=== PATIENT | male | born 1965 | race Caucasian/White ===

== ENCOUNTER 2023-09-16 07:27 | Inpatient (IN) | payer BC, SELFPAY ==
[2023-09-16 08:00] VITALS: BP 97/52
--- NOTE | 2023-09-16 08:05 | HPS.HSE ---
Addendum entered and electronically signed by Riley Ramirez MD 09/16/23 17:06:
I saw and examined the patient.
The PA's note was reviewed and I agree with the note.
Comment:
Patient was sedated on fentanyl gtt and versed gtt. Legs look perfused. Echo reviewed, would say EF visually 40%. Tolerating weaning of IABP. Plan to wake, diurese, and extubate him then likely remove IABP tomorrow. Targets reviewed with IC. LAD is
not a great target. His code sounds respiratory in nature. Will re-assess him once he's normalized and discuss plan of care.
Thank you for involving me in the care of this patient. Please feel free to contact me with any questions or concerns.
Riley Ramirez MD, MS
Cardiothoracic Surgeon
[facility]
This dictation was created using the [employer] dictation system. Please excuse any grammatical, typographical, or 'sound alike' errors.
Addendum entered and electronically signed by CELSO Barber 09/16/23 10:39:
Original Note:
Family Physician
-
Family Physician: Dr Bray
DOES NOT FOLLOW A FERRYBOAT HELPER
Chief Complaint
-
Cardiogenic shock
History of Present Illness
58-year-old male with past medical history significant for diabetes presented to [facility] emergency room on September 16, 2023 for acute shortness of breath. Per report, patient woke up around 3 AM and complained of extreme shortness of
breath. [facility] triage patient became delirious, collapsed, and was pulseless. CPR was started and patient was intubated and he received epi x 2 and bicarb x 1.. After intubation ET tube was observed to have pink frothy sputum.
Patient remained asystolic for the first 2 rounds of pulse checks and had a brief ROSC and an idioventricular rhythm then went asystolic again. After a repeat dose of epinephrine ROSC was achieved and patient remained in sinus tachycardia. Post
ROSC EKG was suggestive of an anterior PR and patient was taken to the cardiac [facility]. While in the cardiac [facility] patient was observed to have multivessel disease and a intra-aortic balloon pump was placed. Transfer was initiated to
[facility]. Patient arrived to [place] this morning for further surgical evaluation and cardiogenic shock stabilization.
Medical History
Past Medical History
Past Medical History: Reports NIDDM and PR
Additional Past Medical History:
Morbid obesity
Flash pulmonary edema
DKA
Diabetes
Cataracts
Past Surgical History: Reports Other (unknown 2/2 mental status)
Additional Past Surgical History:
Unable to obtain
Social History
Unable to obtain full social history at this time due to: Patient Intubation
Personal:
Living: With Family
Family History
Family History: Adopted
Allergies / Home Medications
Allergies reflects when Allergies were last updated in [facility].
Home Medications with original date entered in [facility]
Allergy/Medication List:
NKDA
If medication reconciliation has not been performed, why?: Unresponsive
Review of Systems
-
Unable to obtain full review of systems at this time due to: Patient Intubation
Physical Exam
Vital Signs
Active Medications
Acetaminophen (Acetaminophen 325 Mg Tablet) 650 mg TUBE Q4HPRN PRN
PRN Reason: mild pain/BRONSON/temp> 100.4F
Stop: 10/14/23 06:58
Al Hydrox/Mg Hydrox/Simethicone (Mag/Al/Simethicone Suspension 30 Ml Cup) 30 ml TUBE Q6HPRN PRN
PRN Reason: Heartburn
Stop: 10/14/23 06:58
Albuterol/Ipratropium (Ipratropium 0.5/Albuterol 3 Mg (3 Ml Ampul)) 3 ml INH R Q4HPRN PRN; Protocol
PRN Reason: shortness of breath
Dextrose (Dextrose 50% (0.5 Grams/Ml) 50 Ml Syringe) 12.5 grams IV [id number] PRN
PRN Reason: BLOOD GLUCOSE < 70
Stop: 10/14/23 08:22
Docusate Sodium (Docusate Sodium Liquid (100 Mg/10 Ml) Cup) 100 mg TUBE BID SHAVON
Stop: 10/14/23 08:59
Fentanyl Citrate (Fentanyl (50 Mcg/Ml) 100 Mcg/2 Ml Ampul) 50 mcg IV [id number] PRN; Protocol
PRN Reason: see protocol
Stop: 09/30/23 08:24
Hydromorphone HCl (Hydromorphone 0.5 Mg/0.5 Ml Syringe) 0.5 mg IV Q4HPRN PRN
PRN Reason: severe pain
Stop: 09/30/23 06:58
Last Admin: 09/16/23 08:30 Dose: 0.5 mg
Norepinephrine Bitartrate (Levophed) 4 mg in 250 mls @ 0 mls/hr IV PER PROTOCOL SHAVON; Protocol
Insulin Human Regular (Novolin R Insulin Infusion) 100 units in 100 mls @ 0 mls/hr IV PER PROTOCOL SHAVON; Protocol
Last Admin: 09/16/23 09:02 Dose: 100 mls
Fentanyl Citrate (Sublimaze) 1,000 mcg in 100 mls @ 0 mls/hr IV PER PROTOCOL SHAVON; Protocol
Last Admin: 09/16/23 09:00 Dose: 100 mls
Magnesium Sulfate (Magnesium Sulfate) 2 gram in 50 mls @ 25 mls/hr IV NOW STA
Stop: 09/16/23 11:11
Midazolam HCl (Versed) 25 mg in 50 mls @ 0 mls/hr IV PER PROTOCOL SHAVON; Protocol
Insulin Aspart (Insulin Aspart (100 Units/Ml) 3 Ml Flexpen) 0 units SC AC SHAVON; Protocol
Stop: 10/14/23 11:29
Magnesium Hydroxide (Milk Of Magnesia 30 Ml Cup) 15 ml TUBE HSPRN PRN
PRN Reason: constipation
Stop: 10/14/23 06:58
Midazolam HCl (Midazolam (Preservative Free) 1 Mg/Ml 2 Ml Vial) 2 mg IV [id number] PRN; Protocol
PRN Reason: see protocol
Stop: 10/14/23 09:18
Ondansetron HCl (Ondansetron 4 Mg/2 Ml Vial) 4 mg IV Q6HPRN PRN
PRN Reason: nausea and vomiting
Stop: 10/14/23 06:58
Pantoprazole Sodium (Pantoprazole Sodium 40 Mg/10 Ml Vial) 40 mg IV BID SHAVON
Stop: 10/14/23 09:59
Polyethylene Glycol (Polyethylene Glycol Powder 17 Grams Packet) 17 grams TUBE DAILY SHAVON
Stop: 10/15/23 07:59
Sennosides (Sennosides (Senokot) 8.6 Mg Tablet) 8.6 mg TUBE BID SHAVON
Stop: 10/14/23 07:59
Sodium Chloride (Sodium Chloride 0.9% (Flush) Syringe) 0 flush IV PER PROTOCOL SHAVON
Stop: 10/14/23 08:59
Sodium Chloride (Sodium Chloride 0.9% (Preservative Free) 10 Ml Vial) 10 ml IV BID SHAVON
Stop: 10/14/23 09:59
Vital Signs
Temp Pulse Resp BP Pulse Ox
96.7 F L 83 12 85/42 96
09/16/23 08:53 09/16/23 09:05 09/16/23 08:53 09/16/23 09:05 09/16/23 08:53
I&O
09/14/23 09/15/23 09/16/23 09/17/23
06:59 06:59 06:59 06:59
Intake Total 148.2 / 148.2
Output Total 190 / 190
Balance -41.8 / -41.8
Physical Exam
General: Intubated
HEENT: NormoCephalic, Nose Appears Normal and Ears Appear Normal
Respiratory: Rales and Crackles
Cardiac: S1/S2
Breast: Deferred by me
GI: Normal Bowel Sounds and Distended
Rectal: Deferred by Provider
Genito-urinary: Other (baca in place)
Musculoskeletal: No Edema
Skin: Warm
Neuro: AO x 3
Hematologic/Lymphatic: No Lymphadenopathy
Psych: Other (sedation)
Laboratory Results
-
Lab Results
09/16/23 07:46
PT 15.5 Sec (11.4-14.6) H 09/16/23 07:46
INR 1.25 09/16/23 07:46
APTT 30.1 Sec (23.4-35.0) 09/16/23 07:46
Magnesium 1.5 mg/dl (1.6-2.3) L 09/16/23 07:46
Triglycerides 933 mg/dl (10-149) H 09/16/23 07:46
LDL Cholesterol, Calc -29 mg/dl 09/16/23 07:46
VLDL Cholesterol, Calc 186 mg/dl (0-30) H 09/16/23 07:46
HDL Cholesterol 28 mg/dl 09/16/23 07:46
09/16/23
07:46
Mdh-W-Kaordeudmmx Pept 2540
PT 15.5 Sec (11.4-14.6) H 09/16/23 07:46
INR 1.25 09/16/23 07:46
APTT 30.1 Sec (23.4-35.0) 09/16/23 07:46
Data Reviewed
-
Critical Care Time (in minutes): 55
Diagnostic Radiology: Image Personally Visualized and interpreted
Medical Tests (Nuc Med, Echo, EKG etc): Image Personally Visualized and interpreted
Lab Data: Labs Reviewed by me and Discussed with Nurse
Old Records: Requested
Impression/Plan
-
IMPRESSION:
58-year-old male with past medical history listed above was transferred from [facility] with cardiogenic shock for surgical evaluation and shock management.
PLAN:
#CAD
-Patient's case will be discussed with attending physician. Further details regarding surgical timing intervention will be determined after attending physicians full evaluation.
-Routine preoperative cardiothoracic surgery orders will be initiated once deemed a surgical candidate
-STS risk stratification score will be calculated after preoperative testing is complete
-will start heparin gtt once TR band is off
-Check EKG
-Lipid panel pending
-Cardiology consulted
#Cardiogenic shock
-Continue intra-aortic balloon pump support
-Continue Bybee-Arthur catheter and monitor cardiac index every 4 hours
-Check echocardiogram
-BNP pending
-Continue Levophed; titrate for MAP greater than 65
#Pulmonary edema
#Ventilator dependent respiratory failure
-Stat chest x-ray to assess ET tube placement and balloon pump placement
-40 mg of IV Lasix stat
-Continue vent support and wean FiO2 as able for sats greater than 90%
-Check pplat
-Continue sedation for RASS score of -3 to -5
>>>Check triglycerides, may need to transition from propofol to fentanyl Versed
>>daily sedation vacations
-Information Security Analyst consulted
#Acute kidney injury
- Will check BMP
-Trend creatinine
-Will hold off on fluid resuscitation due to pulmonary edema
-Strict I's and O's
-Low threshold to consult nephrology
#Hyperkalemia
-Start hyperkalemia cocktail
-Repeat BMP and ABG pending
#Leukocytosis
-Continue to monitor trend
-Monitor for fever
-Low threshold to start antibiotics
#DKA
-Start insulin drip
-Check beta hydroxy
-Stat UA to assess for ketones
-BMP every 4 hours
-Check hemoglobin A1c
-Consult diabetes management
#Shock liver
#Multiorgan dysfunction
-Monitor CMP's daily
Carla HOUSTON
Cardiac Surgery
[2023-09-16 08:06] LABS: APTT 30.1 Sec (23.4-35.0); INR 1.25; PT 15.5 Sec (11.4-14.6)
[2023-09-16 08:08] LABS: Hematocrit 42.3 % (39.0-52.0); Hemoglobin 14.2 g/dL (13.0-18.0); Mean Corp Hgb Conc. 33.6 g/dL (33.0-37.0); Mean Corpuscular Volume 83.4 fL (80.0-94.0); Mean Platelet Volume 9.9 fL (7.4-10.4); Platelet Count 157 10^3/uL (130-400); Red Blood Cell Count 5.07 10^6/uL (4.70-6.10); Red Cell Dist. Width 13.8 % (11.5-14.5); White Blood Cell Count 23.7 10^3/uL (4.8-10.8)
[2023-09-16 08:13] LABS: Glucose - Point of Care 555 mg/dl (70-99)
--- NOTE | 2023-09-16 08:14 | CON.CAR ---
Addendum entered and electronically signed by Titi Carmona DO 09/16/23 11:25:
I saw and examined the patient.
The Delivery Assistant's note was reviewed and I agree with the note.
Comment:
Impression:
Presented to [facility] with SOB 09/16/23 early AM
Acute hypoxic respiratory failure
intubated at [facility] 09/16/23In-hospital cardiac arrest at [facility] 09/16/23
collapsed in triage at [facility], cardiac arrest ROSC after CPR, Epi and bicarb
Cardiogenic shock s/p IABP 09/16/23
Anterior STEMI and CAD by cath at [facility] 09/16/23
initial Troponin at was 2.7 09/16/23ypokalemia at [facility] then hyperkalemia at
Hyperglycemia with h/o DM 2
Hyperlipidemia
SEGUNDO
Past smoker
Plan:
Requested records including cath report.
Pt being evaluated for CABG.
Trend troponin until peak
IV levophed for bp support. Wean as able. Beta blockers not initiated in setting of hypotension requiring IV pressor therapy
Cont pulm toilet for VDRF
IABP 1:1 for LV support
Check echo to eval EF
Replete Mg. Monitor lytes, potassium elevated and had been low.
Monitor cr, rising and currently at 1.6.
Remains sinus rhythm, cont tele
HPI: -Patient came to as a transfer from [facility] in the setting of cardiac arrest and CAD, cardiology has been consulted. Patient walked into [facility] ER around 0400 this AM complaining of SOB. His drive him to the hospital. He was able to tell the
respiratory assistant that he was SOB and then collapsed. He was pulseless. Patient was intubated in [facility] ER. He had chest compressions, Epi x1 and bicarb x1, asystole on tele followed by sinus tachycardia. ECG post-ROSC with anterior ST elevation prompting
STEMI alert. Patient had cath at [facility] and there was evidence of CAD and cardiogenic shock. IABP was placed and patient was sent to .
Original Note:
Consultation
Consultation Request
Date/Time Consultation Requested: 09/16/23
Date/Time Consultation Performed: 09/16/23
Requesting Provider: Dr. Ramirez
Performing Provider: Dr. Carmona
Reason for Consultation: Transfer for in-hospital cardiac arrest at an outside hospital
Medical History
-
History of Present Illness:
Patient came to as a transfer from [facility] in the setting of cardiac arrest and CAD, cardiology has been consulted. Patient walked into [facility] ER around 0400 this AM complaining of SOB. His drive him to the hospital. He was able to tell the triage
RN that he was SOB and then collapsed. He was pulseless. Patient was intubated in [facility] ER. He had chest compressions, Epi x1 and bicarb x1, asystole on tele followed by sinus tachycardia. ECG post-ROSC with anterior ST elevation prompting STEMI
alert. Patient was cath'd by covering bracelet and brooch maker at [facility] and there was evidence of CAD and cardiogenic shock. IABP was placed and patient was sent to . Called his PCP to get records and await their arrival.
PMH:
DM 2
Hyperlipidemia
Past Medical History
Past Medical History: Other (in HPI)
Past Surgical History: Cardiac (cardiac cath at [facility] 09/16/23)
Social History
Tobacco: Non-Smoker
Alcohol: None
Drug: None
Personal:
Living: With Family
Family History
Family History: Unable to Obtain
Allergies / Home Medications
Allergy/AdvReac Type Severity Reaction Status Date / Time
No Known Allergies Allergy Unverified 09/16/23 08:03
Review of Systems
-
History Source: Transfer Record
All other systems: Negative unless noted
Physical Exam
Vital Signs
90/46, HR 83, pulse ox 97% vent
GEN: Intubated and sedated on the vent
HEENT: MMM
LUNGS: Intubated and on the ventilator. Coarse BS anterolaterally without wheeze
CV: Reg, no murmur
ABD: soft, BS+, NT, ND
EXT: Chronic brawny skin changes. No clubbing, cyanosis, lesions or edema B/L
NEURO: Sedated
SKIN: Warm, dry and pink. No rash
Lab Results
09/16/23 07:46
Labs from [facility] 09/16/23:
Hgb 15.9, WBC 1539, Plt 151
Sodium 145, potassium 3.1, BUN 23, Cre 1.27, magnesium 1.8
Impression / Plan
-
PCP: Dr. Espinoza Bray
Cardiology: None prior to admission, seen by Dr. Ankush hernandez and Dr. Patino at [facility] prior to transfer
Impression:
Presented to [facility] with SOB 09/16/23 early AM
Acute hypoxic respiratory failure
intubated at [facility] 09/16/23
In-hospital cardiac arrest at [facility] 09/16/23
collapsed in triage at [facility], ROSC after CPR, Epi and bicarb
Cardiogenic shock s/p IABP 09/16/23
Anterior STEMI and CAD by cath at [facility] 09/16/23
initial Troponin at was 2.7 09/16/23
Hypokalemia at [facility] then hyperkalemia at
Hyperglycemia with h/o DM 2
Hyperlipidemia
SEGUNDO
Plan:
-Patient came to as a transfer from [facility] in the setting of cardiac arrest and CAD, cardiology has been consulted. Patient walked into [facility] ER around 0400 this AM complaining of SOB. His drive him to the hospital. He was able to tell the triage
RN that he was SOB and then collapsed. He was pulseless. Patient was intubated in [facility] ER. He had chest compressions, Epi x1 and bicarb x1, asystole on tele followed by sinus tachycardia. ECG post-ROSC with anterior ST elevation prompting STEMI
alert. Patient was cath'd by covering bracelet and brooch maker at [facility] and there was evidence of CAD and cardiogenic shock. IABP was placed and patient was sent to . Called his PCP to get records and await their arrival.
-Remains in SR without acute ischemic changes by ECG reviewed by me
-IABP running at 1:1
-Cath films being reviewed by interventional cardiology. No known h/o CAD and no known h/o cardiac testing. Called PCP and requested adrian available records and await their arrival.
-Initial Troponin 2.7, will trend
-Levophed running at 8
-Potassium was 3.1 at [facility] this AM with magnesium of 1.8. Repeat labs at show potassium is up to 6.2. Not clear if he was supplemented at [facility].
-Now also appears to be markedly hyperglycemic and concern for DKA. HgbA1c 9.2%.
-SEGUNDO with Cre up to 1.6 at . Cre was 1.27 at [facility] earlier today
-Lactic acid 3.2
-No echo report available from [facility]
[2023-09-16 08:16] VITALS: BP_SYST 97
[2023-09-16 08:27] LABS: Mixed Venous O2 Saturation 77.9 %
[2023-09-16 08:30] LABS: B.E. -7.2 mmol/L; O2 Saturation % 97.3 % (94-98); PCO2 59 mmHg (35-48); PO2 90 mmHg (83-108); Sodium 133 mMOL/L (136-145)
[2023-09-16] MEDS: DILAUDID 0.5 MG IV (08:30)
[2023-09-16 08:33] LABS: O2 Therapy VENT
[2023-09-16 08:34] LABS: Potassium 6.6 mMOL/L (3.5-5.1); pH 7.18 (7.35-7.45)
[2023-09-16 08:40] LABS: Lactic Acid 3.2 mmol/L (0.7-2.0)
[2023-09-16 08:42] LABS: NT-proBNP 2540 pg/ml
[2023-09-16 08:52] LABS: Glycohemoglobin (HgbA1c) 9.2 % (4.0-5.6)
[2023-09-16] MEDS: NOVOLIN R 0.100000000000000006 UNITS IV (08:57)
[2023-09-16 09:00] VITALS: BP 94/57; BP_SYST 120
[2023-09-16 09:00] LABS: ALT (SGPT) 54 U/L (0-50); AST (SGOT) 76 U/L (17-59); Albumin 3.5 g/dl (3.5-5.0); Alkaline Phosphatase 68 U/L (38-126); Blood Urea Nitrogen 35 mg/dl (9-20); Calcium 7.6 mg/dl (8.4-10.2); Carbon Dioxide 19 mmol/L (22-30); Chloride 104 mmol/L (98-107); Glucose 575 mg/dl (70-99); HDL Cholesterol 28 mg/dl; Magnesium 1.5 mg/dl (1.6-2.3); Potassium 6.2 mmol/L (3.5-5.1); Sodium 133 mmol/L (135-145); Total Bilirubin 0.7 mg/dl (0.2-1.3); Total Cholesterol 185 mg/dl (50-199); Total Protein 5.7 g/dl (6.3-8.2); eGFR 50.26
[2023-09-16] MEDS: SUBLIMAZE 100 IV (09:00)
[2023-09-16 09:02] LABS: B-Hydroxybutyrate 0.65 mmol/L (0.02-0.27)
[2023-09-16] MEDS: NOVOLIN R INSULIN INFUSION 100 IV ×3 (09:02→22:25)
[2023-09-16] MEDS: LASIX 40 MG IV (09:05)
[2023-09-16] MEDS: SUBLIMAZE 50 MCG IV ×4 (09:05→14:32)
[2023-09-16] MEDS: CALCIUM GLUCONATE 100 IV (09:07)
[2023-09-16] MEDS: DEXTROSE 50% SYRINGE 25 GRAMS IV (09:07)
[2023-09-16] MEDS: NOVOLIN R 10 UNITS IV ×2 (09:08→12:45)
[2023-09-16 09:12] LABS: Urine Albumin 1+ (Neg - Trace); Urine Bilirubin Negative (Negative); Urine Character Clear (Clear); Urine Color Yellow; Urine Glucose 3+ (Negative); Urine Ketone Negative (Negative); Urine Leukocyte Negative (Negative); Urine Nitrite Negative (Negative); Urine Occult Blood Negative (Negative); Urine Specific Gravity 1.015 (<1.030); Urine Urobilinogen Negative (Neg - 1+)
[2023-09-16 09:14] LABS: LDL Cholesterol, Calculated -29 mg/dl; Triglyceride 933 mg/dl (10-149); Triglycerides 933 mg/dl (10-149); Very Low Density Lipoprotein 186 mg/dl (0-30)
[2023-09-16 09:15] VITALS: BP 114/62
[2023-09-16 09:19] LABS: Urine Bacteria Few (Negative); Urine Red Blood Cell 0-2 /HPF (0-2)
[2023-09-16] MEDS: PROTONIX IV 40 MG IV ×3 (09:25→20:01)
[2023-09-16 09:32] LABS: COVID-19 Antigen Negative (Negative)
[2023-09-16 09:42] LABS: LDL Cholesterol, Direct 63 mg/dl
[2023-09-16] MEDS: MAGNESIUM SULFATE 50 IV (09:55)
[2023-09-16 09:58] LABS: Glucose - Point of Care 555 mg/dl (70-99)
--- NOTE | 2023-09-16 09:58 | CON.INTV ---
Consultation
Consultation Request
Date/Time Consultation Requested: 09/15
Date/Time Consultation Performed: 09/15
Reason for Consultation: Critical care
Medical History
-
History of Present Illness:
History obtained primarily from the chart and the . Patient is a 58-year-old male with history of diabetes who presented on the morning of 09/12/2023 with acute shortness of breath. Patient woke up at around 2:45 in the morning. Prior, he had
no shortness of breath, no chest pain. noticed that while driving him to the hospital, he was constantly spitting out mucus out the window. There was no chest pain according to the . Records suggest he woke up in [place] with shortness
of breath. In the [facility] ED he was apparently delirious, collapsed and was pulseless. CPR started with epi and bicarb, ROSC, intubated. Patient apparently had a pink frothy sputum post intubation. Patient EKG showed anterior TX, patient was taken
to the Cia Agent. Multivessel disease was noted, intra-aortic balloon pump was placed and patient was transferred to [facility]. Upon arrival to [facility], systolic pressure 97/52, pulse 90, saturation 93% on volume-cycled
ventilation. Blood sugars noted to be elevated in the 500s. Creatinine 1.6. We are asked to help from critical care standpoint.
.
PMH: Diabetes, hx of Covid 08/2023
Past Medical History
Past Medical History: None (See above)
Past Surgical History: None (See above)
Social History
Tobacco: Former Smoker (quit many years ago, 1-2 cig/mo)
Alcohol: Occasional
Drug: None
Personal:
Living: With Family
Employment: Employed ([employer])
Family History
Family History: Adopted and Other (daughter (adopted). 2 Brothers (Adopted))
Allergies / Home Medications
Allergies
Allergy/AdvReac Type Severity Reaction Status Date / Time
No Known Allergies Allergy Unverified 09/16/23 08:03
Review of Systems
-
History Source: Family
All other systems: Negative unless noted
Vitals / Labs / Diagnostic Testing
Vital Signs
Temp Pulse Resp BP Pulse Ox
96.7 F L 83 12 85/42 96
09/16/23 08:53 09/16/23 09:05 09/16/23 08:53 09/16/23 09:05 09/16/23 08:53
Lab Data
09/16/23 07:46
Laboratory Results
09/16/23 09/16/23
07:46 08:09
PT 15.5 H
INR 1.25
APTT 30.1
pH 7.18 L*
pCO2 59 H
pO2 90
HCO3 22.0
O2 Delivery Level Vent
Microbiology
09/16/23 09:25 Nasal Swab Influenza Types A & B (YENNY) - Final
Negative for Influenza A & B, NAAT
Negative results must be combined with clinical observations
and patient history.
Nucleic Acid Amplification test (NAAT)performed on the
[employer] NOW platform.
Diagnostic Testing:
Physical Exam
-
HEENT: Normocephalic, Anicteric and Other (Balloon pump, A-line, IJ)
Cardiovascular: S1/S2, Regular Rhythm, Murmur (n), Rub (n) and Peripheral Edema (tr)
Respiratory: Wheeze (n), Rales, Rhonchi (few), Non-Labored Respirations and Other (ET tube)
GI: Soft and Non Distended
Neurology: Other (Sedated)
Skin: Other (Chronic venous stasis changes lower extremities)
General: Comfortable
Assessment
-
58-year-old male with history of diabetes, recent COVID August 2023 treated with Paxlovid therapy, primary symptom of cough at that time. Patient recovered without any symptoms. Woke up travel consultant 4/9 with shortness of breath, had cardiac arrest
while at [facility] ED requiring CPR/epi/bicarbonate with ROSC, found to have acute anterior TX per EKG at [facility]. Cardiac catheterization revealed multivessel disease, balloon pump placed, transferred to [facility] CVICU 09/16/23
Acute hypoxic respiratory failure
Intubated at [facility] ED/10/30
In- hospital cardiac arrest ([facility])
Collapsed in triage
CPR, epi, bicarbonate with ROSC
Cardiogenic shock
IABP placed/ at [facility]
Anterior ST elevation TX
Multivessel disease per catheterization 09/16/2023
IABP placed
Hyperglycemia, DKA
Acute renal insufficiency, creatinine 1.6
Hypokalemia/hyperkalemia
Hypertriglyceridemia, 900s
Conditions present prior to admission
History of diabetes
Poorly controlled, sees workcell operator
Recent Covid illness August 2023
s/p Paxlovid
Occasional tobacco history
Plan/recommendations
At this time, patient is a critically ill. Clinical story suggestive of flash pulm edema. Less likely infectious process
Presently on volume-cycled ventilation, metabolic and respiratory acidemia, elevated lactate, mild anion gap of 17
Blood sugars noted to be 500s
ET tube appropriate
Patient currently on norepinephrine at 4 mcg, one-to-one IABP, maps greater than 65
Moving forward
Maintain volume-cycled ventilation
Rate increased to 550 with adequate response, better ventilation
No need for further ventilator changes at this time, wean FiO2 as able
Check plateau pressures, currently 26
Maintain sedation, currently on fentanyl/Versed
Propofol has been weaned off due to significant elevated triglycerides 900s
Send tracheal culture. Hold off on antibiotics
Leukocytosis likely stress related
Follow
Start DKA protocol
No fluids for now, frequent BMP, follow potassium, trending down currently 5.7 on ABG
Replete magnesium
Reviewed with pharmacy
Heparin drip to be started per cardiology/CT surgery
CT surgery following closely
IABP one-to-one, Sarita-Arthur in place.
Elevated filling pressures noted
Await echocardiogram
Lasix therapy as able. Cardiology following as well
Creatinine increased to 1.6. Kaur catheter in place.
Follow
GI prophylaxis: Remains on Protonix twice daily
DVT prophylaxis: Heparin drip pending. Mechanical prophylaxis as well
Reviewed above at length with critical care nursing, respiratory care, pharmacy, CT surgery team
Reviewed with
Will follow
TCCT 45 min
[2023-09-16 10:00] VITALS: BP 111/66; BP_SYST 120
[2023-09-16] MEDS: VERSED 50 IV (10:03)
[2023-09-16] MEDS: VERSED 2 MG IV (10:11)
[2023-09-16] MEDS: NSS (PRESERVATIVE FREE) 10 ML IV ×2 (10:16→20:00)
[2023-09-16 10:19] LABS: B.E. -5.7 mmol/L; HCO3 21.1 mmol/L (21-28); Ionized Calcium 1.11 mMOL/L (1.15-1.33); O2 Saturation % 98.8 % (94-98); PCO2 45 mmHg (35-48); PO2 106 mmHg (83-108); Potassium 5.7 mMOL/L (3.5-5.1); Sodium 132 mMOL/L (136-145); pH 7.28 (7.35-7.45)
[2023-09-16 11:00] VITALS: BP 115/67
[2023-09-16 11:16] LABS: Glucose 554 mg/dl (70-99)
[2023-09-16 11:19] LABS: Glucose - Point of Care 507 mg/dl (70-99)
[2023-09-16 11:24] VITALS: BMI 35.2
--- NOTE | 2023-09-16 11:35 | PN.DE.MGMTRT ---
Insulin Management
- -
09/16/2023 Diabetes Management Consult
Patient transferred from [facility] s/p cardiac cath with cardiogenic shock, multivessel disease. H [place], type 2 diabetes. Patient is critically ill, intubated DKA insulin infusion and multiple other drips. He is sedated. Unable to determine
what diabetes medications he was taking prior to admission. A1C is 9.2, cr 1.6, eGFR 50.26.
Glucose has remained > 500, will continue DKA insulin infusion at this time. If GAP is closed would recommend transitioning to glycemic protocol for optimal glycemic control.
Diabetes History
- -
Type of Diabetes: 2
Pre-Admission Diabetes Regimen
09/16/23
07:46
Creatinine 1.6 H
Lab Results
Hemoglobin A1c 9.2 % (4.0-5.6) H 09/16/23 07:46
Insulin Pump Settings
IP Diabetes Regimen
09/16/23 09/16/23 09/16/23
07:46 08:12 09:57
Glucose 575 H*
POC Glucose 555 H* 555 H*
09/16/23 09/16/23
10:27 11:18
Glucose 554 H*
POC Glucose 507 H*
Patient Education
[2023-09-16 11:49] LABS: B.E. -5.1 mmol/L; HCO3 21.2 mmol/L (21-28); Ionized Calcium 1.12 mMOL/L (1.15-1.33); O2 Saturation % 99.4 % (94-98); PCO2 43 mmHg (35-48); PO2 176 mmHg (83-108); Potassium 5.3 mMOL/L (3.5-5.1); Sodium 134 mMOL/L (136-145)
[2023-09-16 12:00] VITALS: BMI 35.2
[2023-09-16] MEDS: HEPARIN 4000 UNITS IV (12:01)
[2023-09-16] MEDS: HEPARIN 25000 UNITS/250 ML IV (12:02)
[2023-09-16 12:24] LABS: Blood Urea Nitrogen 37 mg/dl (9-20); Calcium 7.9 mg/dl (8.4-10.2); Carbon Dioxide 18 mmol/L (22-30); Chloride 104 mmol/L (98-107); Estimated Creatinine Clearance 61 ml/min; Glucose 482 mg/dl (70-99); Magnesium 1.9 mg/dl (1.6-2.3); Potassium 5.2 mmol/L (3.5-5.1); Sodium 133 mmol/L (135-145); eGFR 46.73
[2023-09-16] MEDS: CALCIUM GLUCONATE 10% 10 ML 9.30000000000000071 MEQ IV (13:27)
[2023-09-16 14:02] LABS: Glucose - Point of Care 391 mg/dl (70-99)
[2023-09-16 14:43] LABS: Lactic Acid 3.6 mmol/L (0.7-2.0)
--- NOTE | 2023-09-16 14:46 | PTCARENOTE ---
Rec'd pt this shift from [facility], intubated and sedated on propofol drip at 40 mcg/kg/min and IV levo at 12mcg/min with left femoral IABP at 1:1, left femoral [place] and venous sheath. Pt with OGT draining dark brown, placed on LCWS. Pt
with Kaur cath draining clear yellow urine. Rt radial R band on with 10ml air. Pt mechanically ventilated with 7.5 tube 23 lip. Pt on AC, vent settings rate 22, TV 550 peep 10 100% fio2. Pt able to open eyes to name and move all extremities
spontaneously and to command. Pt suctioned for pink tinged secretions. 40mg IV lasix given. Covid, Flu and MRSA sent, urine and sputum sent. Labs sent. EKG done. CXR done. ECHO done. Propofol d/c'd and Fentanyl begun at 50mcg/min after 50mg Fentanyl
bolus given. Versed drip begun at 1 mg/hr. 10 units Insulin given IV for elevated potassium and 1/2 amp dextrose. Insulin drip begun as per glycemic protocol, switched to DKA protocol and then back to glycemic protocol but Insulin continued
throughout with additional Insulin boluses given. See MAR. R band removed after per protocol. ABG's repeated and MANAGER PARK, Ruth and Dr. Pugh aware of results. Peep and Fio2 weaned as per ordered. Levo drip titrated for MAP >70. 4000 units Heparin
bolus given and drip begun at 1500 units/hr. Pts family in to see patient. Updated them on plan of care and encouraged questiions. Pt turned side to side, tolerated well. Kaur care and mouth care done. See worklist for VS/I and O and assessments.
--- NOTE | 2023-09-16 14:58 | CM ---
Chart reviewed. Patient is in critical condition, intubated and sedated. Met with the and family. Patient was independent of ADLS, lives with his in a 2 STH, 1 EDWARD, 0 DME. Plan is for the patient to return home. CM to follow
[2023-09-16 15:03] LABS: Glucose - Point of Care 338 mg/dl (70-99)
[2023-09-16] MEDS: NOVOLOG FLEXPEN SC (15:34)
[2023-09-16 16:18] LABS: Glucose - Point of Care 336 mg/dl (70-99)
[2023-09-16 16:29] LABS: B.E. -2.3 mmol/L; HCO3 22.5 mmol/L (21-28); Ionized Calcium 1.13 mMOL/L (1.15-1.33); PCO2 38 mmHg (35-48); PO2 124 mmHg (83-108); Potassium 5.2 mMOL/L (3.5-5.1); Sodium 135 mMOL/L (136-145); pH 7.38 (7.35-7.45)
[2023-09-16 17:01] LABS: Blood Urea Nitrogen 41 mg/dl (9-20); Calcium 8.3 mg/dl (8.4-10.2); Carbon Dioxide 22 mmol/L (22-30); Chloride 104 mmol/L (98-107); Estimated Creatinine Clearance 57 ml/min; Glucose 337 mg/dl (70-99); Magnesium 1.9 mg/dl (1.6-2.3); Potassium 5.2 mmol/L (3.5-5.1); Sodium 135 mmol/L (135-145); eGFR 43.63
[2023-09-16 17:12] LABS: Glucose - Point of Care 364 mg/dl (70-99)
--- NOTE | 2023-09-16 17:17 | PTCARENOTE ---
Pt turned q 2 hours and prn. Pt following command, WHITMAN, nodding head appropriately. Pt turned side to side, tolerated well.
[2023-09-16] MEDS: PRECEDEX 100 IV (17:35)
--- NOTE | 2023-09-16 17:50 | PTCARENOTE ---
Precedex begun at 0.5 mcg/kg/hr.
[2023-09-16 18:05] LABS: Glucose - Point of Care 305 mg/dl (70-99)
[2023-09-16 18:53] LABS: APTT 76.1 Sec (23.4-35.0)
--- NOTE | 2023-09-16 19:00 | PTCARENOTE ---
assumed care of patient @ 1900. received pt lying in reverse Trendelenburg, intubated and sedated on mechanical ventilation. Pt is lightly sedated with RASS -2. responds to verbal commands and moves all extremities. pupils equal and reactive. CPOT
0. NSR on moniotr, HR 90s. B/L pedals present with doppler. Titrating levo to map goal >65. Currently 70. PAP 40s/20s (30), CVP currently 15. IABP to 1;2 setting. 7.5 ET tube present 23 @ lip. Vent settings AC, 22 rate, 550 TV, 5 peep, 40 fio2.
satting 96 percent. Lungs are clear and diminished b/l. OG tube present to wall suction with dark brown output. Belly round, obese, baca present draining clear yellow urine. R groin site CDI. Lines - R groin femoral swan and R groin venous sheath.
R groin femoral A line and R groin IABP. Meds - precedex at .5, insulin 16, levo 11, heparin at 15. Plan to wean sedation and extubate tonight per CTPA.
[2023-09-16 19:17] LABS: Glucose - Point of Care 260 mg/dl (70-99)
[2023-09-16 20:16] LABS: Lactic Acid 2.5 mmol/L (0.7-2.0)
[2023-09-16 20:18] LABS: Glucose - Point of Care 193 mg/dl (70-99)
[2023-09-16 20:33] LABS: Blood Urea Nitrogen 43 mg/dl (9-20); Carbon Dioxide 22 mmol/L (22-30); Chloride 109 mmol/L (98-107); Estimated Creatinine Clearance 61 ml/min; Glucose 234 mg/dl (70-99); Potassium 4.9 mmol/L (3.5-5.1); Sodium 134 mmol/L (135-145); eGFR 46.73
--- NOTE | 2023-09-16 21:00 | PTCARENOTE ---
Offirmev given for temp, calcium ordered and given for calcium 8.0. weaning precedex and fentanyl
[2023-09-16 21:03] LABS: Glucose - Point of Care 193 mg/dl (70-99)
[2023-09-16] MEDS: LEVOPHED 250 IV (21:04)
[2023-09-16] MEDS: CALCIUM GLUCONATE 10% 10 ML 4.65000000000000036 MEQ IV (21:10)
[2023-09-16] MEDS: OFIRMEV 100 IV (21:10)
[2023-09-16 21:59] LABS: Glucose - Point of Care 186 mg/dl (70-99)
--- NOTE | 2023-09-16 22:50 | PTCARENOTE ---
pt placed on CPAP trial
[2023-09-16 23:02] LABS: Glucose - Point of Care 146 mg/dl (70-99)
[2023-09-16 23:29] LABS: B.E. -1.7 mmol/L; Ionized Calcium 1.16 mMOL/L (1.15-1.33); O2 Saturation % 96.6 % (94-98); PCO2 38 mmHg (35-48); PO2 77 mmHg (83-108); Potassium 4.3 mMOL/L (3.5-5.1); Sodium 137 mMOL/L (136-145); pH 7.39 (7.35-7.45)
--- NOTE | 2023-09-16 23:58 | RESPNOTE ---
pt extubated to 6 LPM NC at 2345. Presents with + vocalization and - stridor
[2023-09-17 00:10] LABS: Glucose - Point of Care 121 mg/dl (70-99)
--- NOTE | 2023-09-17 00:34 | PTCARENOTE ---
2345 - pt extubated to 6L NC - OGT removed at same time. restraints removed. pt alert and oriented x3. family at bedside afterwards to see patient
[2023-09-17 00:49] LABS: APTT 76.9 Sec (23.4-35.0)
[2023-09-17 01:02] LABS: Blood Urea Nitrogen 46 mg/dl (9-20); Calcium 8.7 mg/dl (8.4-10.2); Carbon Dioxide 21 mmol/L (22-30); Chloride 110 mmol/L (98-107); Estimated Creatinine Clearance 54 ml/min; Glucose 125 mg/dl (70-99); Potassium 4.5 mmol/L (3.5-5.1); Sodium 137 mmol/L (135-145); eGFR 40.89
[2023-09-17 01:03] LABS: Glucose - Point of Care 113 mg/dl (70-99)
[2023-09-17 02:07] LABS: Glucose - Point of Care 112 mg/dl (70-99)
[2023-09-17] MEDS: LEVOPHED 250 IV ×2 (02:44→14:28)
[2023-09-17 04:15] LABS: Glucose - Point of Care 94 mg/dl (70-99)
--- NOTE | 2023-09-17 04:22 | PTCARENOTE ---
pt sleeps when undisturbed, arousable to verbal. sinus tach on monitor HR 100s. titrating levo down. EKG completed, full bed bath and sheets changed. pt resting comfortably with call cameron within reach
[2023-09-17] MEDS: HEPARIN 25000 UNITS/250 ML IV (04:32)
--- NOTE | 2023-09-17 04:53 | W.PN.CT ---
Today's Communication / Plan
-
-Vent weaned and patient extubated last evening. Saturating 96% on 6L NC
-IABP at 1:2, will discontinue heparin drip in hopes of removing IABP today, CI 3.23 this morning.
-troponin peaked at 3.87, will discontinue
-continue diuresis
-follow cr (nephrology consulted), potassium is trending down, follow LFT's
-endocrine for management of DM
Assessment / Plan
-
#CAD
#Cardiogenic shock
#Pulmonary edema
#Ventilator dependent respiratory failure
#Acute kidney injury
#Hyperkalemia
#Leukocytosis
#DKA
#Shock liver
#Multiorgan dysfunction
Subjective
Procedure
Transferred from [facility] for CAD eval for CABG. Pt. had IABP placed and was intubated and OSH.
-
Date of Service: September 17, 2023
Objective Data
-
Lab Results
09/16/23 07:46
PT 15.5 Sec (11.4-14.6) H 09/16/23 07:46
INR 1.25 09/16/23 07:46
APTT 76.9 Sec (23.4-35.0) H 09/17/23 00:19
Vital Signs
Vital Signs
Temp Pulse Resp BP Pulse Ox
100.9 F H 112 26 115/67 96
09/17/23 04:00 09/17/23 04:00 09/17/23 04:00 09/16/23 11:00 09/17/23 04:00
CT Intake/Output/Weight
09/16/23 09/16/23 09/17/23
06:59 18:59 06:59
Intake Total 618.6 / 1279.1 660.5 / 1279.1
Output Total 1370 / 1755 385 / 1755
Balance -751.4 / -475.9 275.5 / -475.9
SaO2: 96
[2023-09-17 04:58] LABS: Blood Urea Nitrogen 48 mg/dl (9-20); Calcium 8.4 mg/dl (8.4-10.2); Carbon Dioxide 22 mmol/L (22-30); Chloride 105 mmol/L (98-107); Estimated Creatinine Clearance 54 ml/min; Glucose 102 mg/dl (70-99); Potassium 4.5 mmol/L (3.5-5.1); Sodium 135 mmol/L (135-145); eGFR 40.89
[2023-09-17 06:00] VITALS: BMI 36.2
[2023-09-17 06:14] LABS: Glucose - Point of Care 154 mg/dl (70-99)
[2023-09-17 06:35] LABS: % Basophils 0.1 % (0-2); % Eosinophils 0.1 % (0-6); % Immature Granulocytes 0.5 % (0-0.5); % Lymphocytes 9.7 % (20.5-51.1); % Monocytes 8.8 % (1.7-9.3); % Neutrophils 80.8 % (42.2-75.2); Absolute Immature Granulocytes 0.1 10^3/uL (0-0.05); Absolute Lymphocytes 1.3 10^3/uL (1.2-3.4); Absolute Monocytes 1.2 10^3/uL (0.1-0.6); Absolute Neutrophils 10.8 10^3/uL (1.4-6.5); Hematocrit 31.8 % (39.0-52.0); Hemoglobin 11.1 g/dL (13.0-18.0); Mean Corp Hgb Conc. 34.9 g/dL (33.0-37.0); Mean Corpuscular Hgb 28.2 pg (27.0-31.0); Mean Corpuscular Volume 80.9 fL (80.0-94.0); Nucleated Red Blood Cells % 0 % (-); Red Blood Cell Count 3.93 10^6/uL (4.70-6.10); Red Cell Dist. Width 14.2 % (11.5-14.5); White Blood Cell Count 13.4 10^3/uL (4.8-10.8)
[2023-09-17] MEDS: TYLENOL 650 MG PO ×3 (06:59→18:00)
[2023-09-17] MEDS: NOVOLOG FLEXPEN SC ×3 (07:23→17:01)
--- NOTE | 2023-09-17 07:32 | PTCARENOTE ---
Assumed care of patient from shift commander RN. AAO x 3. ST 120-130 on monitor. IABP at 1:2 via RT femoral Artery. RT femoral swan at 80 cm and Rt femoral arterial and venous lines transduced. Lines leveled, and recalibrated, and flushed. Pt temp
102, tylenol administered along with ice packs to groin . 6 L NC 97%. IS to 1000, Pt expectorating thick browne mucus. Abdomen wnl, obese. Kaur draining tod urine. DP pulses present with doppler. General plus one anasarca noted. Plan for day
discussed with care team.
[2023-09-17 07:52] LABS: Glucose - Point of Care 132 mg/dl (70-99)
[2023-09-17 07:52] LABS: ACT-LR - POC 147 Seconds (116-155)
[2023-09-17 08:28] LABS: Comment 9.3; Mean Platelet Volume 9.3 fL (7.4-10.4); Platelet Count 90 10^3/uL (130-400)
[2023-09-17 08:45] VITALS: BP 124/114
[2023-09-17 08:54] VITALS: BP 109/58
[2023-09-17 09:20] LABS: Blood Urea Nitrogen 51 mg/dl (9-20); Calcium 8.5 mg/dl (8.4-10.2); Carbon Dioxide 23 mmol/L (22-30); Chloride 101 mmol/L (98-107); Estimated Creatinine Clearance 50 ml/min; Glucose 125 mg/dl (70-99); Potassium 4.8 mmol/L (3.5-5.1); Sodium 133 mmol/L (135-145); eGFR 36.26
[2023-09-17] MEDS: NOVOLIN R INSULIN INFUSION 100 IV ×2 (09:23→19:13)
--- NOTE | 2023-09-17 09:58 | W.PN.UPDATE ---
Update Note
Progress Note Update
Radial arterial line placement
A time-out was completed verifying correct patient, procedure, site, patient positioning, and special equipment. Patient was monitored with continuous bedside EKG, blood pressure, pulse ox readings.
Jcarlos's test was performed to ensure adequate perfusion. The patient's right wrist was prepped and draped in sterile fashion.
1% Lidocaine was used to anesthetize the area. Ultrasound was used in real time to localize the radial artery and guide introducer needle into the arterial lumen. The catheter was threaded over the guide wire and the needle was removed with
appropriate pulsatile blood return. The catheter was then secured in place to the skin and a biopatch and sterile dressing applied.
Perfusion to the extremity distal to the point of catheter insertion was checked and found to be unchanged.
Estimated Blood Loss: 5 mL
The patient tolerated the procedure well and there were no complications.
Remains in critical condition.
Carla HOUSTON
Cardiac Surgery
--- NOTE | 2023-09-17 09:59 | W.PN.UPDATE ---
Addendum entered and electronically signed by CELSO Barber 09/17/23 17:45:
Original Note:
Update Note
Progress Note Update
A time-out was completed verifying correct patient, procedure, site, patient positioning, and special equipment. Patient was monitored with continuous bedside EKG, blood pressure, pulse ox readings.
The patient was placed in a dependent position appropriate for central line placement based on the vein to be cannulated. The patient's right neck was prepped and draped in sterile fashion using chlorhexidine, maximum barrier precautions, sterile
gloves, Gown drapes and mask.
1% Lidocaine was used to anesthetize the surrounding skin area. Ultrasound was used in real time to localize vein and guide introducer needle. An introducer needle was placed into the right internal jugular vein using ultrasound guidance. A
guidewire was introduced without resistance. Under ultrasound guidance, confirmation of guidewire in vein was performed before dilation. Dilator and catheter was then threaded smoothly over the guide wire and into the central venous system. The
guidewire and dilator was removed and appropriate blood return was obtained from each lumen. Each lumen of the catheter was evacuated of any remaining air and flushed freely with sterile saline. The catheter was then secured with a suture to the
skin and a sterile occlusive dressing with Biopatch applied. An upright chest film was obtained after the procedure to assess for complications of insertion.
Estimated blood loss: 0 mL
Patient tolerated procedure well. Remains in critical condition.
Pre-procedure diagnosis R57.0
post procedure diagnosis R57.0
CPT code 05792
Carla HOUSTON
Cardiac Surgery
[2023-09-17 10:03] LABS: Glucose - Point of Care 114 mg/dl (70-99)
--- NOTE | 2023-09-17 10:20 | W.PN.CARDCBS ---
Addendum entered and electronically signed by Nils Allen MD 09/17/23 12:25:
I saw and examined the patient.
The Die Maker Stamping's note was reviewed and I agree with the note.
Comment:
GEN: No distress, awake, Ox3
HEENT: supple, anicteric, mmm
LUNGS: CTA, no wheezes/rales
CV: Reg, S1/S2, 1/6 syst LSB, no gallop
ABD: soft, BS+, NT/ND
EXT: No edema, R groin IABP
NEURO: Gross non-focal
SKIN: No rash
Plan:
He is awake and extubated. Hopefully remove intra-aortic balloon pump today. Continue to wean Levophed.
Will discuss plan with CT surgery regarding revascularization. He does not appear to have good interventional targets.
Will add aspirin and atorvastatin today
Eventual Metoprolol when off pressors
Will repeat Echo in 24-48 hours when off pressor and IABP out.
Original Note:
Today's Communication / Plan
-
Levophed at 7
IABP at 1:3 with plans to remove
Recheck echo or Friday
Eventual medical therapy for MD and CM
Impression / Plan
-
PCP: Dr. Espinoza Bray
Cardiology: None prior to admission, seen by Dr. Ankush hernandez and Dr. Patino at [facility] prior to transfer
Impression:
Presented to [facility] with SOB 09/16/23 early AM
Acute hypoxic respiratory failure
intubated at [facility] 09/16/23, extubated early 09/17/23
In-hospital cardiac arrest at [facility] 09/16/23
collapsed in triage at [facility], ROSC after CPR, Epi and bicarb
Cardiogenic shock s/p IABP 09/16/23
Anterior STEMI and CAD by cath at [facility] 09/16/23
initial Troponin at was 2.7 09/16/23
Hypokalemia at [facility] then hyperkalemia at
Hyperglycemia with h/o DM 2
Hyperlipidemia
SEGUNDO
DM 2
DKA
Echo 09/16/23: study, EF 35-40%, inferior, inferoseptal and septal hypokinesis, mild conc LVH, trace MR
Plan:
-Extubated overnight and stable on 6 L NC.
-Levophed continues at 7 mcg/min
-IABP weaned to 1:3 and plan to remove 09/17/23
-Troponin peaked at 4.38. Cath films from [facility] 09/16/23 study reviewed by interventional cardiology. No known h/o CAD and no known h/o cardiac testing. Pending plans for revascularization would start aspirin and Plavix
-Eventual medical therapy for CM
-Called PCP 09/16/23 and requested any available records and await their arrival.
-Cre up to 2.1 on 09/17/23 and nephrology consulted
-DKA improving on insulin gtt. Known DM prior to admission
HPI: Patient came to as a transfer from [facility] in the setting of cardiac arrest and CAD, cardiology has been consulted. Patient walked into [facility] ER around 0400 this AM complaining of SOB. His drive him to the hospital. He was able to tell the
procedure analyst that he was SOB and then collapsed. He was pulseless. Patient was intubated in [facility] ER. He had chest compressions, Epi x1 and bicarb x1, asystole on tele followed by sinus tachycardia. ECG post-ROSC with anterior ST elevation prompting
STEMI alert. Patient was cath'd by covering floor covering printer assistant at [facility] and there was evidence of CAD and cardiogenic shock. IABP was placed and patient was sent to . Called his PCP to get records and await their arrival.
Progress Note - Mud Analysis Supervisor
Subjective
Date of Service: September 17, 2023
No chest pain
Objective
Labs:
09/17/23 06:25
Labs
Hgb 11.1 g/dL (13.0-18.0) L D 09/17/23 06:25
Hct 31.8 % (39.0-52.0) L 09/17/23 06:25
Plt Count 90 10^3/uL (130-400) L D 09/17/23 06:25
PT 15.5 Sec (11.4-14.6) H 09/16/23 07:46
INR 1.25 09/16/23 07:46
APTT 76.9 Sec (23.4-35.0) H 09/17/23 00:19
Sodium 133 mmol/L (135-145) L 09/17/23 08:34
Potassium 4.8 mmol/L (3.5-5.1) 09/17/23 08:34
BUN 51 mg/dl (9-20) H 09/17/23 08:34
Creatinine 2.1 mg/dL (0.7-1.3) H 09/17/23 08:34
Glucose 125 mg/dl (70-99) H 09/17/23 08:34
Troponins
09/16/23 09/16/23 09/16/23
07:46 11:29 22:04
Troponin I 2.700 H* 3.330 H* 4.380 H*
09/17/23
04:06
Troponin I 3.870 H*
Vital Signs and I&O:
Vital Signs
Temp Pulse Resp BP Pulse Ox
100.3 F 117 22 109/58 91
09/17/23 09:59 09/17/23 10:00 09/17/23 10:00 09/17/23 08:54 09/17/23 10:00
Vital Signs
Temp Pulse Resp BP Pulse Ox
100.3 F 117 22 109/58 91
09/17/23 09:59 09/17/23 10:00 09/17/23 10:00 09/17/23 08:54 09/17/23 10:00
Intake & Output
09/15/23 09/16/23 09/17/23 09/18/23
06:59 06:59 06:59 06:59
Intake Total 1396.8 / 1425.8 132.6 / 132.6
Output Total 1829 / 1854 80 / 80
Balance -433.2 / -429.2 52.6 / 52.6
Physical Exam
Physical Exam
GEN: AAOx3
HEENT: MMM
LUNGS: No wheeze, wearing oxygen at 6 L NC
CV: Reg, no murmur
ABD: soft, ND
EXT: No edema B/L
NEURO: Gross non-focal
SKIN: No rash
[2023-09-17] MEDS: PROTONIX IV 40 MG IV ×2 (10:29→20:54)
[2023-09-17] MEDS: LASIX 40 MG IV (10:29)
[2023-09-17] MEDS: NSS (PRESERVATIVE FREE) 10 ML IV ×2 (10:30→20:54)
--- NOTE | 2023-09-17 10:30 | CON.ID ---
Consultation
-
Date/Time Consultation Requested: 09/17/2023 07:45
Date/Time Consultation Performed: 09/17/2023 09:13
Requesting Provider: Petrona
Performing Provider: Dr. Bean
Reason for Consultation: PNA
Chief Complaint / Past History
History of Present Illness
Jose Alberto Morgan is a 58-year-old man being evaluated at the request of Carla Russ regarding pneumonia. History is obtained from chart review, along with patient interview.
The patient was in his usual state of health until yesterday when he woke up early in the morning with extreme shortness of breath. He presented initially to [facility] where he became delirious in the triage area and collapsed. He was
found to be pulseless and CPR was initiated. Ultimately he had ROSC, and an EKG suggested an anterior UT. He was taken to the [facility] where he was found to have multi vessel disease, and ultimately an IABP was placed. He was thereafter
transferred to [facility]. Here he was noted to have a leukocytosis and had a chest x-ray that was suggestive of possible pneumonia, and Infectious Diseases is asked to comment upon further antimicrobial therapy.
At this point in time he notes a slight cough. He notes some ongoing shortness of breath, and also reports some oropharyngeal mucus. He does relate that he had COVID in August 2023.
Past History
Additional Past Medical History:
DM
Obesity
Additional Past Surgical History:
Cataract surgery
Allergy History:
PCN : rash. Reports tolerating Keflex.
Medications Reviewed: Yes
Current Antibiotics:
None
Social History
Tobacco: Former Smoker
Alcohol: Occasional
Drug: None
Personal:
Living: With Family
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
Family History
Family History: Not Pertinent
Review of Systems
Review of Systems
General: Fever and Chills
HEENT: Negative Headache
Respiratory: Cough
Vital Signs
Temp Pulse Resp BP Pulse Ox
100.3 F 117 22 109/58 91
09/17/23 09:59 09/17/23 10:00 09/17/23 10:00 09/17/23 08:54 09/17/23 10:00
Physical Exam
Physical Exam
Constitutional: No Acute Distress, Comfortable, Acutely Ill, Non-toxic and Obese
Head: Normocephalic
Eyes: Pupils Equal, Pupils Round, No Conjunctival Hemorrhage and Sclera Anicteric
Oral: No Thrush and No Ulcers
Cardiovascular: S1/S2; Negative S3/S4 or Murmur
Pulmonary: Coarse and Non Labored; Negative Wheezes or Rhonchi
Gastrointestinal: Soft, Non Tender, Non Distended and Normal Bowel Sounds
Extremities: Edema; Negative Cyanosis, Erythema or Splinter Hemorrhage
Skin: Warm and Dry; Negative Rash or Jaundice
Neurological: Awake and Alert
Psychological: Calm
.
Lab / Diagnostic Study Results
09/17/23 06:25
Abs Immat Gran (auto) 0.1 10^3/uL (0-0.05) H 09/17/23 06:25
Absolute Neuts (auto) 10.8 10^3/uL (1.4-6.5) H 09/17/23 06:25
Absolute Lymphs (auto) 1.3 10^3/uL (1.2-3.4) 09/17/23 06:25
Absolute Monos (auto) 1.2 10^3/uL (0.1-0.6) H 09/17/23 06:25
Absolute Basos (auto) 0.0 10^3/uL (0-0.2) 09/17/23 06:25
Immature Gran % 0.5 % (0-0.5) 09/17/23 06:25
Neutrophils % 80.8 % (42.2-75.2) H 09/17/23 06:25
Lymphocytes % 9.7 % (20.5-51.1) L 09/17/23 06:25
Monocytes % 8.8 % (1.7-9.3) 09/17/23 06:25
Eosinophils % 0.1 % (0-6) 09/17/23 06:25
Basophils % 0.1 % (0-2) 09/17/23 06:25
PT 15.5 Sec (11.4-14.6) H 09/16/23 07:46
INR 1.25 09/16/23 07:46
Lactic Acid 2.5 mmol/L (0.7-2.0) H 09/16/23 19:53
Urine WBC Cancelled 09/16/23 08:51
Ur Squamous Epith Cells 3-5 /LPF (Few) 09/16/23 08:51
Microbiology Results
Micro:
09/16/23 12:33 Respiratory Culture - Preliminary
Tracheal Aspirate Usual Respiratory Rachel
Gram Stain - Preliminary
09/17/23 08:44 Blood Culture - Pending
Blood/Venous
09/17/23 08:34 Blood Culture - Pending
Blood/Venous
09/16/23 09:25 Influenza Types A & B (YENNY) - Final
Nasal Swab Negative for Influenza A & B, NAAT
Negative results must be combined with clinical observations
and patient history.
Nucleic Acid Amplification test (NAAT)performed on the
[employer] NOW platform.
09/16/23 08:51 MRSA Screen - Pending
Throat/Pharynx
Imaging:
09/17/2023 CXR (portable): ET tube has been removed. Tip of the intra-aortic balloon pump is in the proximal descending thoracic aorta. Pulmonary edema has resolved in the interval since the prior study. There is confluent parenchymal density in
the retrocardiac left lung base which may be atelectasis or pneumonia. Please see full dictation for additional detail. Film personally viewed.
Assessment / Plan
Acute UT
S/P CPR
Leukocytosis
Pulmonary infiltrate; PNA versus pneumonitis
Fever
DM
Recommendations:
Begin empiric ceftriaxone and doxycycline.
Monitor white count and temperature curve.
Follow CXR.
Care Review
Plan reviewed with: Other Provider (CT Sx RN FIELD CASE MANAGER)
--- NOTE | 2023-09-17 10:35 | W.PN.INTV ---
Today's Communication / Plan
Recommendations
Incentive spirometry, airway clearance
Antibiotics for left lower lobe pneumonia
Follow creatinine, urine output
Continue glycemic protocol, wean insulin as able
Heparin therapy continues
Assessment
-
58-year-old male with history of diabetes, recent COVID August 2023 treated with Paxlovid therapy, primary symptom of cough at that time. Patient recovered without any symptoms. Woke up roll panner 09/15 with shortness of breath, had cardiac arrest
while at [facility] ED requiring CPR/epi/bicarbonate with ROSC, found to have acute anterior SD per EKG at [facility]. Cardiac catheterization revealed multivessel disease, balloon pump placed, transferred to [facility] CVICU 09/16/23
Acute hypoxic respiratory failure
Intubated at [facility] ED 09/12/23
Extubated 09/17/23
In- hospital cardiac arrest ([facility])
Collapsed in triage
CPR, epi, bicarbonate with ROSC
Cardiogenic shock
IABP placed at [facility]
Anterior ST elevation SD
Multivessel disease per catheterization 09/16/2023
IABP placed
Hyperglycemia, DKA
Acute renal insufficiency, creatinine 1.6
Hypokalemia/hyperkalemia
Hypertriglyceridemia, 900s
Conditions present prior to admission
History of diabetes
Poorly controlled, sees lead pharmacy technician
Recent Covid illness August 2023
s/p Paxlovid
Occasional tobacco history
Plan/recommendations
At this time, patient is a critically ill. Clinical story suggestive of flash pulm edema. Less likely infectious process
Chest x-ray with improved bilateral patchy infiltrate
Persistent left pleural-parenchymal process noted
Extubated yesterday p.m.
Blood sugars improved, insulin drip continues
IABP removed
Right IJ and new radial line placed per CT surgery
Antibiotics started
Remains on norepinephrine
Moving forward
Continue with management per CT surgery
Per discussion with team, catheterization with multivessel disease
Will need reevaluation. Medical treatment for now
Remains on heparin drip
Wean norepinephrine as able
Triglycerides 900s
Chest exam consistent with left lower lobe pneumonia
Started on ceftriaxone/doxycycline
Infectious disease has been consulted
Culture sent preextubation, follow
White count improving
Continue glycemic protocol
Blood sugars improved
Anion gap resolved
Follow electrolytes
Heparin drip to be started per cardiology/CT surgery
CT surgery following closely
Echocardiogram EF 35%, normal PA pressures, aortic sclerosis, normal RV size and function
Seem to be diuresing well
Creatinine increased to 2.2, seems to have plateaued
Kaur catheter in place
Hemoglobin 11.1, down from 14.2
Normal platelets
Follow
Head of bed elevated, aspiration precautions
GI prophylaxis: Remains on Protonix twice daily
DVT prophylaxis: Heparin drip continues. Mechanical prophylaxis as well
Reviewed above at length with critical care nursing, respiratory care, pharmacy, CT surgery team
TCCT 34 min
Subjective Dataa
Subjective Data
Date of Service:
Date of Service: September 17, 2023
Subjective:
Patient remains critically ill, extubated yesterday p.m. Balloon pump removed. Right IJ and new radial A-line placed. Fevers overnight noted. Remains on heparin therapy
Objective Data
Data Reviewed
Vital Signs / I&O / Oxygen:
Vital Signs
Temp Pulse Resp BP Pulse Ox
100.3 F 117 22 109/58 91
09/17/23 09:59 09/17/23 10:00 09/17/23 10:00 09/17/23 08:54 09/17/23 10:00
Intake and Output
09/16/23 09/17/23 09/18/23
06:59 06:59 06:59
Intake Total 1396.8 / 1425.8 132.6 / 132.6
Output Total 1830 / 1855 80 / 80
Balance -433.2 / -429.2 52.6 / 52.6
SaO2 [A/C] 96
SaO2 91
Nasal Cannula flow liters per 6
minute
Physical Exam
General: Comfortable, Other (Right IJ, radial A-line) and Other (Large neck)
HEENT: Normocephalic and Anicteric
Cardiovascular: S1-S2, Regular Rhythm, Murmur (n), Rub (n), Peripheral Edema (tr) and Other (Chronic venous stasis changes)
Respiratory: Wheeze (n), Crackles (n), Rhonchi (Left greater than right), Non-Labored Respirations, Stridor (n) and Other (Decreased breath sounds left base)
GI: Soft, Non Distended (Obese) and Non Tender
Neurology: Awake, Alert and No Motor Deficits (Moves all extremities)
Skin: Cyanosis (n), Jaundice (n), Rash (n) and Other (Right groin pressure device in place)
Labs/Micro/Reports
Lab Data
09/17/23 06:25
Laboratory Results
09/16/23 09/16/23 09/16/23
11:29 16:12 18:29
APTT 76.1 H
pH 7.30 L 7.38
pCO2 43 38
pO2 176 H 124 H
HCO3 21.2 22.5
O2 Delivery Level
09/16/23 09/17/23
23:21 00:19
APTT 76.9 H
pH 7.39
pCO2 38
pO2 77 L
HCO3 23.0
O2 Delivery Level
Microbiology
09/16/23 12:33 Tracheal Aspirate Respiratory Culture - Preliminary
Usual Respiratory Rachel
09/16/23 12:33 Tracheal Aspirate Gram Stain - Preliminary
09/16/23 09:25 Nasal Swab Influenza Types A & B (YENNY) - Final
Negative for Influenza A & B, NAAT
Negative results must be combined with clinical observations
and patient history.
Nucleic Acid Amplification test (NAAT)performed on the
[employer] NOW platform.
[2023-09-17] MEDS: CALCIUM CHLORIDE 10% SYRINGE 1000 MG IV (10:53)
--- NOTE | 2023-09-17 11:06 | W.PN.CARD.SR ---
Addendum entered and electronically signed by CELSO Barber 09/17/23 17:46:
Original Note:
Sheath/IABP Sheath Removal
Sheath Removal
Right Venous Femoral:
Site appearance prior to sheath removal: Intact
Size of hematoma in cm: 0
Sheath removed by:: Registered nurse (CELSO)
Name of associate removing sheath: Carla HOUSTON
Time of sheath removal: 10:40
Time hemostasis achieved: 11:00
Site appearance post sheath removal: Intact
Size of hematoma in cm: 0
Method of Hemostasis Post Sheath Removal: External Pressure Device
Name of device: fem-stop
Dressing dry and intact?: Yes
IABP Sheath Removal
Right Arterial Femoral:
Site appearance prior to IABP sheath removal: Intact
Size of hematoma in cm: 0
IABP sheath removed by:: Registered nurse (CELSO)
Name of associate removing IABP sheath: Carla HOUSTON
Time of IABP sheath removal: 10:40
Time hemostatis achieved: 11:00
Site appearance post IABP sheath removal: Intact
Size of hematoma in cm: 0
Method of Hemostasis Post IABP Sheath Removal: External Pressure Device
Name of device: fem-stop
Dressing dry and intact?: Yes
[2023-09-17 11:10] LABS: B.E. -2.5 mmol/L; HCO3 22.5 mmol/L (21-28); O2 Saturation % 93.3 % (94-98); PCO2 39 mmHg (35-48); PO2 63 mmHg (83-108); pH 7.37 (7.35-7.45)
[2023-09-17 11:13] LABS: Mixed Venous O2 Saturation 74.2 %
[2023-09-17] MEDS: VIBRAMYCIN 100 MG PO ×2 (11:24→20:53)
--- NOTE | 2023-09-17 11:27 | CM ---
Chart reviewed. Patient is independent of ADLS, lives with his in a 2 [address], 1 EDWARD, 0 DME. Plan of care being worked up. Patient for a repeat echo or Friday. Plan is for the patient to return home. CM to follow
--- NOTE | 2023-09-17 11:37 | PN.DE.MGMTRT ---
Insulin Management
- -
09/17/2023 Diabetes Management ConsultFollow up
Patient transferred from [facility] s/p cardiac cath with cardiogenic shock, multivessel disease. PMH NE, type 2 diabetes. Patient is critically ill, intubated DKA insulin infusion and multiple other drips. He is sedated. Unable to determine
what diabetes medications he was taking prior to admission. A1C is 9.2, cr 1.6, eGFR 50.26.
GAP closed yesterday, transitioned to critical care glycemic protocol required up to 20 units of insulin per hour, since midnight has required 10 units per hour, glucose stable 94 to 132. Awakens to name but dozes immediately.
Will continue glycemic protocol today. Discussed with patient nurse.
Diabetes History
- -
Type of Diabetes: 2 requiring insulin
Pre-Admission Diabetes Regimen
09/16/23 09/16/23 09/16/23
11:29 16:12 19:53
Creatinine 1.7 H 1.8 H 1.7 H
09/17/23 09/17/23 09/17/23
00:19 04:06 08:34
Creatinine 1.9 H 1.9 H 2.1 H
Lab Results
Hemoglobin A1c 9.2 % (4.0-5.6) H 09/16/23 07:46
Insulin Pump Settings
IP Diabetes Regimen
09/16/23 09/16/23 09/16/23
11:29 14:00 15:02
Glucose 482 H*
POC Glucose 391 H 338 H
09/16/23 09/16/23 09/16/23
16:12 16:16 17:10
Glucose 337 H
POC Glucose 336 H 364 H
09/16/23 09/16/23 09/16/23
18:04 19:16 19:53
Glucose 234 H
POC Glucose 305 H 260 H
09/16/23 09/16/23 09/16/23
20:15 21:02 21:58
Glucose
POC Glucose 193 H 193 H 186 H
09/16/23 09/17/23 09/17/23
23:00 00:08 00:19
Glucose 125 H
POC Glucose 146 H 121 H
09/17/23 09/17/23 09/17/23
01:01 02:00 04:05
Glucose
POC Glucose 113 H 112 H 94
09/17/23 09/17/23 09/17/23
04:06 06:02 07:50
Glucose 102 H
POC Glucose 154 H 132 H
09/17/23 09/17/23
08:34 09:58
Glucose 125 H
POC Glucose 114 H
Patient Education
--- NOTE | 2023-09-17 11:45 | PTCARENOTE ---
IABP removed by CT AEROPLANE PILOT, PT tolerated. Groin c,d,i. DP pulse via doppler. Diuresing after IV lasix administered. Producing large amounts of thick browne sputum. VSS, levo titrated as needed. Assessment other cole unchanged from prior.
[2023-09-17 12:03] LABS: Glucose - Point of Care 90 mg/dl (70-99)
--- NOTE | 2023-09-17 12:07 | PTCARENOTE ---
Pt states allergy to Penicillins, rocephin ordered by ID, spoke to re/ allergy, ok to administer Per MD
[2023-09-17] MEDS: ROCEPHIN 1000 MG IV (12:12)
[2023-09-17] MEDS: STERILE WATER FOR INJECTION 10 ML IV (12:15)
--- NOTE | 2023-09-17 13:08 | CON.HOSP ---
Consultation
-
Date/Time Consultation Requested: 09/17/23 11:14 AM
Date/Time Consultation Performed: 09/17/23 1:00 PM
Requesting Provider: Dr. Riley Ramirez
Performing Provider: Dr. Dalia Christina
Reason for Consultation: medical management/transfer to medicine service
Family Physician
-
Family Physician: Dr. Bray
Chief Complaint
-
SOB/chest pain
History of Present Illness
Patient is a 58-year-old male who woke up at 3 AM on September 16, 2023 with significant shortness of breath. He told his he needed to go to the hospital. On the way to [facility], the patient's stated he was gurgling and was spitting
out the window. Once he was that [facility] emergency department, he apparently became unresponsive and 'fell over or had syncope' according to his . Upon review of the admitting cardiothoracic documentation, patient was pulseless, CPR was
started and the patient was intubated. He was noted to have pink frothy sputum. Patient had brief return of spontaneous circulation, went into an idioventricular rhythm, and then went asystolic again. EKG post resuscitation was suggestive of an
anterior myocardial infarction and the patient was taken to the cardiac Appeals Reviewer Veteran. Patient was found to have multivessel disease and intra-aortic balloon pump was placed at that time. Patient was then transferred to [facility] for
cardiogenic shock and surgical evaluation.
Upon my evaluation of the patient, the patient is extubated and is communicative but does not remember much of what happened. The above history has been confirmed by the patient's . In addition, the patient's stated that sometime before
August he had COVID. In August, he was thought to have a 'head cold'. Patient complains of coughing up sputum with some mild left-sided chest pain which he thinks is attributed to his phlegm.
Any surgical interventions at this time have been deferred. Patient will be transitioned and accepted to the medical service.
Medical History
Past Medical History
Past Medical History: Reports Other
Additional Past Medical History:
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
Hyperlipidemia
Past Surgical History: Reports Other
Additional Past Surgical History:
Cataracts
Social History
Tobacco: Former Smoker (Quit 'years ago')
Alcohol: None
Drug: None
Personal:
Living: With Family
Family History
Family History: Adopted
Allergies / Home Medications
Allergies reflects when Allergies were last updated in [employer].
Home Medications with original date entered in [employer]
Allergy/Medication List:
Allergies
Allergy/AdvReac Type Severity Reaction Status Date / Time
Penicillins Allergy Mild Rash Verified 09/17/23 12:07
Home Medications
dapagliflozin propanediol 10 mg tablet (Farxiga) 10 mg PO DAILY 09/16/23
insulin glargine 100 unit-lixisenatide 33 mcg/mL subcutaneous pen (Soliqua 100/33) 60 unit SC DAILY 09/16/23
omega-3 fatty acids PO DAILY 09/16/23
repaglinide 0.5 mg tablet 0.5 mg PO BID 09/16/23
rosuvastatin 10 mg PO DAILY 09/16/23
Medication list has not been reconciled due to his intubated status and emergent transfer here to [facility].
I did review the patient's list with him and his .
Missing medications are.... Ramipril 20 mg daily and vitamin D3 2000 units daily
Review of Systems
-
History Source: Patient
A 12 point Review of Systems was completed except as noted: Yes
Constitutional: Reports Fever and Chills
EENT: Reports No Symptoms
Respiratory: Reports Cough and Trouble Breathing
Cardiac: Reports Chest Pain
Abdomen/GI: Denies Abdominal Pain, Nausea, Vomiting, Diarrhea or Constipated
: Reports No Symptoms
Musculoskeletal: Reports No Symptoms; Denies Edema
Skin: Reports No Symptoms
Neurological: Denies Dizzy, Headache or Weakness
Endocrine: Reports No Symptoms
Hematologic/Lymphatic: Reports No Symptoms
Psych: Reports No Symptoms
Physical Exam
Vital Signs
Vital Signs
Temp Pulse Resp BP Pulse Ox
98.2 F 111 26 109/58 97
09/17/23 12:00 09/17/23 13:00 09/17/23 13:00 09/17/23 08:54 09/17/23 13:00
Physical Exam
General: Well Developed, Well Nourished and No Apparent Distress
HEENT: Normocephalic, Anicteric and Oxygen
Respiratory: Rhonchi
Cardiac: S1/S2, Regular Rhythm and Tachycardia
GI: Soft, Non Tender, Non Distended and Normal Bowel Sounds
Genito-urinary: Clear Urine and Kaur Catheter
Musculoskeletal: No Clubbing, No Cyanosis and No Edema
Skin: Warm
Neuro: Awake and Alert
Psych: Calm
Laboratory Results
-
Laboratory Results
09/17/23 06:25
PT 15.5 Sec (11.4-14.6) H 09/16/23 07:46
INR 1.25 09/16/23 07:46
APTT 76.9 Sec (23.4-35.0) H 09/17/23 00:19
pH 7.37 (7.35-7.45) 09/17/23 10:59
pCO2 39 mmHg (35-48) 09/17/23 10:59
pO2 63 mmHg (83-108) L 09/17/23 10:59
HCO3 22.5 mmol/L (21-28) 09/17/23 10:59
Lactic Acid 2.5 mmol/L (0.7-2.0) H 09/16/23 19:53
Total Bilirubin 0.7 mg/dl (0.2-1.3) 09/16/23 07:46
AST 76 U/L (17-59) H 09/16/23 07:46
ALT 54 U/L (0-50) H 09/16/23 07:46
Alkaline Phosphatase 68 U/L (38-126) 09/16/23 07:46
Troponin I 3.870 ng/ml H* 09/17/23 04:06
Impression / Plan
-
Patient is a 58-year-old male
Coronary artery disease status post myocardial infarction status postcardiac catheterization at [facility] with triple-vessel disease--patient was brought over in cardiogenic shock with intra-aortic balloon pump--that has all
resolved--patient is extubated and intra-aortic balloon pump has been removed--plans for definitive cardiac surgery will be deferred to cardiothoracic surgery--will keep them on consult--wean Levophed to off--troponin was 2.7 on admission, peaked to
4.3, and is now down to 3.8
Acute hypoxemic respiratory insufficiency/failure with ventilator dependent need for intubation--resolved--patient is extubated and on nasal cannula oxygen--hospital pharmacy director consulted, will consult pulmonary for assistance--wean oxygen to off as able
Type 2 diabetes mellitus with peripheral neuropathy--patient was in diabetic ketoacidosis when he arrived--he was placed on insulin drip and anion gap has been closed--he is transitioned over to the critical care glycemic protocol with the
assistance of the diabetic nurse practitioner--can start diabetic diet now that he is extubated--will need to transition off of the glycemic protocol to subcutaneous insulin
Presumed sepsis with metabolic acidosis--due to possible pneumonia on admission--chest x-ray shows atelectasis or pneumonia in the retrocardiac left lung base (this is where his chest pain is)--this could have been the trigger for his 'cardiac
arrest' and subsequent DKA--appreciate ID input--cultures pending--continue Rocephin and doxycycline --white count 24,000 on admission, down to 13,000 today
Thrombocytopenia--possibly from infection, although patient got heparin, cannot rule out HIT-- send off assay
Hyperlipidemia--continue rosuvastatin as able
Essential hypertension--patient on ramipril as an outpatient--holding for now due to hypotension requiring Levophed and acute kidney injury
Acute kidney injury presumed--unknown baseline--patient's creatinine on admission here was 1.6 and has progressed to 2.1 today--this could be a combination of hypotension, sepsis, contrast studies from the cardiac cath--will consult nephrology
Hyponatremia--some combination of pseudohyponatremia from glucose of 575 on admission--now that glucose has corrected, may be related to SIADH, volume overload from resuscitative efforts--received IV Lasix--trend I's and O's
DVT prophylaxis
CODE STATUS--full code
[2023-09-17 13:36] LABS: Blood Urea Nitrogen 52 mg/dl (9-20); Calcium 8.8 mg/dl (8.4-10.2); Carbon Dioxide 21 mmol/L (22-30); Chloride 106 mmol/L (98-107); Estimated Creatinine Clearance 47 ml/min; Glucose 119 mg/dl (70-99); Potassium 4.6 mmol/L (3.5-5.1); Sodium 133 mmol/L (135-145); eGFR 34.29
[2023-09-17 14:20] LABS: Glucose - Point of Care 152 mg/dl (70-99)
[2023-09-17 16:24] LABS: Glucose - Point of Care 129 mg/dl (70-99)
--- NOTE | 2023-09-17 16:43 | W.PN.UPDATE ---
Update Note
Progress Note Update
After a discussion with cardiology, there is no longer a need for heparin gtt. Since patient is not currently a surgical candidate at this moment d.t his respiratory status and pneumonia he was started on ASA/plavix. No load for plavix but continue
to trend plts.
--- NOTE | 2023-09-17 16:47 | SUR.OPER ---
1500
Femstop removed, dressing placed to site c,d, i. DP pulse present. Pt denies pain at present. Continues with thick mucus. Levo titrated down. Oxygen weaned to 4 Liters 96%. VSS assessment unchanged from prior.
--- NOTE | 2023-09-17 16:58 | W.CON.NEPH ---
Consultation
-
Date/Time Consultation Requested: September 17, 2023 2 PM
Date/Time Consultation Performed: September 17, 2023 5 PM
Requesting Provider: Dr. Ramirez
Performing Provider: Dr. Gutierrez
Reason for Consultation: Acute kidney injury
Medical History
-
Chief Complaint: Acute kidney injury
History of Present Illness:
This is a 58-year-old gentleman with known diabetes on insulin therapy as well as Farxiga and Prandin. He also has hyperlipidemia on statin therapy. No other history is currently recorded. He has not been to [place] previously. He had
developed significant shortness of breath in the middle of the night on September 15. On his way to [facility] he had worsening of his symptoms. In the emergency room he became unresponsive and lost consciousness. CPR was initiated at that
time for pulseless rhythm. He had return of spontaneous circulation but then became asystolic again. Postresuscitation EKG suggested myocardial infarction and he was taken to the cardiac Process Engineering Manager which showed multivessel disease. No intervention
was performed at that time and intra-aortic balloon pump was started. At that point he was also noted to have severe hyperglycemia. He was sent to [facility] for further evaluation.
At [place], his intra-aortic balloon pump was weaned and was removed. His sugars were controlled with insulin. His creatinine with unknown baseline though 1.27 at the time of admission to [facility] has not worsened up to 2.2. He was
extubated but remains on pressors for hypotension. He is currently critically ill in the CVICU.
Past Medical History
Diabetes mellitus type 2
Hypertension
Hyperlipidemia
Neuropathy
Cataract surgery
Social History
Tobacco: Former Smoker
Alcohol: None
Family History
Family History: Adopted
Allergies / Home Medications
Allergy/AdvReac Type Severity Reaction Status Date / Time
Penicillins Allergy Mild Rash Verified 09/17/23 12:07
�Medication �Instructions �Recorded �Confirmed �Type
dapagliflozin propanediol 10 mg 10 mg PO DAILY 09/16/23 09/16/23 History
tablet (Farxiga)
insulin glargine 100 60 unit SC DAILY 09/16/23 09/16/23 History
unit-lixisenatide 33 mcg/mL
subcutaneous pen (Soliqua 100/33)
omega-3 fatty acids PO DAILY 09/16/23 History
repaglinide 0.5 mg tablet 0.5 mg PO BID 09/16/23 09/16/23 History
rosuvastatin 10 mg PO DAILY 09/16/23 09/16/23 History
Review of Systems
-
No fevers chills or sweats. No chest pain. Reports congestion with phlegm production. Kaur catheter in place. The remainder of the complete review of systems was negative
Physical Exam
Vital Signs
Vital Signs
Temp Pulse Resp BP Pulse Ox
98.9 F 103 28 109/58 96
09/17/23 16:00 09/17/23 16:45 09/17/23 16:00 09/17/23 08:54 09/17/23 16:45
Lab Results
WBC 13.4 10^3/uL (4.8-10.8) H 09/17/23 06:25
RBC 3.93 10^6/uL (4.70-6.10) L 09/17/23 06:25
Hgb 11.1 g/dL (13.0-18.0) L D 09/17/23 06:25
Hct 31.8 % (39.0-52.0) L 09/17/23 06:25
Plt Count 90 10^3/uL (130-400) L D 09/17/23 06:25
Sodium 133 mmol/L (135-145) L 09/17/23 12:57
Potassium 4.6 mmol/L (3.5-5.1) 09/17/23 12:57
Chloride 106 mmol/L (98-107) 09/17/23 12:57
Carbon Dioxide 21 mmol/L (22-30) L 09/17/23 12:57
BUN 52 mg/dl (9-20) H 09/17/23 12:57
Creatinine 2.2 mg/dL (0.7-1.3) H 09/17/23 12:57
eGFR 34.29 09/17/23 12:57
Glucose 119 mg/dl (70-99) H 09/17/23 12:57
Calcium 8.8 mg/dl (8.4-10.2) 09/17/23 12:57
Wzj-C-Txtomtpusyv Pept 2540 pg/ml 09/16/23 07:46
Albumin 3.5 g/dl (3.5-5.0) 09/16/23 07:46
Physical Exam
General: AOx3
HEENT: PERRL, EOMI, Anicteric, Conjunctivae Clear, Ear/Nose Intact, Hearing Normal, Oropharynx Clear/Moist, Neck Supple, Trachea Midline and No Thyromegaly
Respiratory: Clear
Cardiac: Regular Rate/Rhythm
Abdomen: Soft, Nontender, Nondistended, Normal Bowel Sounds and No Hepatosplenomegaly
Musculoskeletal: No Edema
Skin: No Rash, No Cyanosis and Normal Turgor
Psych: Mood/afflect pleasant and Insight/judgement good
Assessment/Plan
-
Assessment:
Hypotension
Multivessel coronary disease
Lactic acidosis
DKA
Diabetes mellitus type 2
Acute kidney injury
Hyperlipidemia
Thrombocytopenia
Hyponatremia
Cardiogenic shock
Plan:
Maintain pressors to keep mean arterial pressure greater than 65
May use Lasix as required for even volume status
Insulin drip per protocol for DKA
Evaluation for eventual cardiac revascularization
Heparin drip discontinued for thrombocytopenia
Follow urine output.
Follow basic metabolic panel
I discussed with the patient his acute kidney injury. This is most likely due to hypoperfusion injury. The extent of the SEGUNDO is still to be seen.
We discussed the possibility that he may require dialysis.
Hopefully, his creatinine will peak in the next 48 hours. This will allow him to escape dialysis.
Check fractional excretion of sodium
Critical care time spent 40 minutes
Data Reviewed
-
Radiology: Image Personally Visualized and interpreted (Chest x-ray on September 17, 2023 by my reading shows cardiomegaly left lower lobe consolidation)
Medical Tests (Nuc Med, Echo etc): Image Personally Visualized and interpreted (EKG on 09/17/2023 by my reading shows sinus tachycardia inferior Q waves lateral ST-T wave changes)
Labs: Labs Reviewed by me
Old Records: Requested (Await catheterization report from [facility])
[2023-09-17 17:50] LABS: Glucose - Point of Care 101 mg/dl (70-99)
[2023-09-17] MEDS: LIPITOR 40 MG PO (18:00)
[2023-09-17 18:15] LABS: Urine Sodium 10 mmol/L (30-90)
--- NOTE | 2023-09-17 19:30 | PTCARENOTE ---
assumed care of patient @ 1900. received pt lying in bed, AOX3. Afebrile, mild c/o pain in L flank. ST 100s-110s on tele. +1 generalized anasarca. +pedals with doppler. Lungs with loud coarse rhonci. productive cough with thick browne sputum. orders
for mucinex obtained. vigorous chest PT provided with copious secretions. IS around 750. Satting mid 90s on 4L. +BS, round obese belly. baca present draining clear tod urine. R radial A line, R IJ cordis, PIV x2 all patent. R groin site soft, no
hematoma. Pt on insulin and levo per worklist. resting comfortably with call cameron in reach.
[2023-09-17 20:26] LABS: Glucose - Point of Care 101 mg/dl (70-99)
[2023-09-17] MEDS: ROXICODONE 5 MG PO (20:53)
[2023-09-17] MEDS: COLACE 100 MG PO (20:54)
[2023-09-17] MEDS: SENOKOT 8.59999999999999964 MG PO (20:54)
[2023-09-17] MEDS: MUCINEX 600 MG PO (22:06)
[2023-09-17 22:15] LABS: Glucose - Point of Care 148 mg/dl (70-99)
[2023-09-17] MEDS: DILAUDID 0.25 MG IV (22:34)
--- NOTE | 2023-09-18 | PTCARENOTE ---
pt with increased pain in L flank prohibiting coughing and breathing deeply. 5 of aspen given without relief, .25 dilaudid given with good effect. titrating levo for map >65. no other change in assessment,.
[2023-09-18 00:09] LABS: Glucose - Point of Care 105 mg/dl (70-99)
[2023-09-18 02:09] LABS: Glucose - Point of Care 89 mg/dl (70-99)
[2023-09-18] MEDS: ROXICODONE 5 MG PO ×2 (02:19→08:19)
[2023-09-18 04:08] LABS: Glucose - Point of Care 140 mg/dl (70-99)
--- NOTE | 2023-09-18 04:27 | W.PN.CT ---
Today's Communication / Plan
-
-IABP dcd 09/16
-no significant issues overnight
-started on Ceftriaxone and Doxy on 09/16 by ID - fever resolved, leukocytosis improved, Blood cx pending, Resp cx preliminary with usual resp amber, neg for Influenza
-started Mucinex, continue pulmonary toilet
-Cr 2.1 (2.2 on 09/16, 1.6 on 09/15)-Nephrology following
-Heparin stopped d/t low platelets - 89K today (90K on 09/16) - follow
-pain management
-recent DKA - DM following
-Echo 09/17/23:
Normal left ventricular size and systolic function. Severe hypokinesis of the distal anteroseptal, distal inferior and apical barrios. LV ejection fraction is 55% by visual assessment.
Normal right ventricular size and function.
Normal pericardium without effusion.
Compared to previous echo 09/16/23, the LVEF has improved from 35% to 50-55%.
-possible CABG when stable from respiratory standpoint.
Assessment / Plan
-
#CAD-admitted to on 09/15, on ASA, Plavix, Lipitor
#Cardiogenic shock/IL- IABP dcd 09/16
#Pulmonary edema/ respiratory code/CPR
#Ventilator dependent respiratory failure- resolved
#Acute kidney injury (baseline Cr unknown, was 1.27 at [facility])
#Hyperkalemia/ hyponatremia
#Leukocytosis/fever/ suspected PNA- started on Ceftriaxone and Doxycycline on 09/16 by ID
#DKA
#Shock liver
#Multiorgan dysfunction
Discussed patient care with: Nursing and Care Team
Subjective
Procedure
Transferred from [facility] for CAD eval for CABG. Pt. had IABP placed and was intubated and OSH.
-
Date of Service: September 18, 2023
Objective Data
-
PT 15.5 Sec (11.4-14.6) H 09/16/23 07:46
INR 1.25 09/16/23 07:46
APTT 76.9 Sec (23.4-35.0) H 09/17/23 00:19
Vital Signs
Vital Signs
Temp Pulse Resp BP Pulse Ox
98.2 F 112 22 109/58 98
09/17/23 23:00 09/18/23 03:15 09/18/23 03:00 09/17/23 08:54 09/18/23 03:15
CT Intake/Output/Weight
09/17/23 09/17/23 09/18/23
06:59 18:59 06:59
Intake Total 778.2 / 1425.8 594.9 / 2115.8 1520.9 / 2115.8
Output Total 460 / 1855 730 / 1110 380 / 1110
Balance 318.2 / -429.2 -135.1 / 1005.8 1140.9 / 1005.8
SaO2: 98
Physical Exam
-
General: Awake and AOx3
Cardiovascular: Regular rate & rhythm, No Murmurs and No Rub
Respiratory: Decreased Breath Sounds (coarse breath sounds, R worse than L, no wheeze)
Extremities: Edema +1 (appears chronic b/l with brown skin discoloration, hx of healed venous ulcer per pt)
Data Reviewed
-
Lab Results: Results Reviewed
Medications: Active Meds Reviewed
Chest X-Ray: Report Reviewed and Image Reviewed
ECG: Report Reviewed and Image Reviewed
[2023-09-18 04:32] LABS: Hematocrit 30.2 % (39.0-52.0); Hemoglobin 10.5 g/dL (13.0-18.0); Mean Corp Hgb Conc. 34.8 g/dL (33.0-37.0); Mean Corpuscular Hgb 28.4 pg (27.0-31.0); Mean Corpuscular Volume 81.6 fL (80.0-94.0); Mean Platelet Volume 9.9 fL (7.4-10.4); Platelet Count 89 10^3/uL (130-400); Red Cell Dist. Width 14.3 % (11.5-14.5); White Blood Cell Count 11.8 10^3/uL (4.8-10.8)
[2023-09-18 04:46] LABS: ALT (SGPT) 32 U/L (0-50); AST (SGOT) 33 U/L (17-59); Albumin 2.9 g/dl (3.5-5.0); Alkaline Phosphatase 55 U/L (38-126); Blood Urea Nitrogen 59 mg/dl (9-20); Calcium 8.3 mg/dl (8.4-10.2); Carbon Dioxide 21 mmol/L (22-30); Chloride 103 mmol/L (98-107); Estimated Creatinine Clearance 50 ml/min; Glucose 140 mg/dl (70-99); Magnesium 1.7 mg/dl (1.6-2.3); Potassium 4.9 mmol/L (3.5-5.1); Sodium 130 mmol/L (135-145); Total Bilirubin 1.1 mg/dl (0.2-1.3); eGFR 36.26
--- NOTE | 2023-09-18 05:00 | PTCARENOTE ---
full bath given, labs drawn and sent, pt assisted OOB to chair with x2 assist. tolerated well. call cameron within reach.
[2023-09-18 06:00] VITALS: BMI 36.3
[2023-09-18 06:15] LABS: Glucose - Point of Care 145 mg/dl (70-99)
[2023-09-18] MEDS: NOVOLIN R INSULIN INFUSION 100 IV (07:31)
--- NOTE | 2023-09-18 08:00 | PTCARENOTE ---
pt received from previous RN, oriented, OOB in chair. ST on the monitor, HR 100-110s. SBP 100-120s, MAPs >65. Levophed gtt titrated as ordered. +trace anasarca, weakly palpable pedal pulses, palpable radial pulses. pt on 4-6LNC, 94-96% POX. lungs
rhonchorous. +productive cough, browne sputum. chest PT performed. IS encouraged. pt abdomen s/n, denies n/v. poor appetite. +dentures, not in. oral hygiene performed. Kaur in place. R groin c/d/i. RIJ cordis maintained. PIV x2. R radial Yesenia
flushed, zeroed, and calibrated. insulin gtt running per protocol. at bedside. see worklist VS, I&O, and assessment.
[2023-09-18 08:17] LABS: Glucose - Point of Care 159 mg/dl (70-99)
[2023-09-18] MEDS: PLAVIX 75 MG PO (08:19)
[2023-09-18] MEDS: MIRALAX 17 GRAMS PO (08:19)
[2023-09-18] MEDS: LOW STRENGTH ASPIRIN 81 MG PO (08:19)
[2023-09-18] MEDS: COLACE 100 MG PO ×2 (08:19→20:36)
[2023-09-18] MEDS: MUCINEX 600 MG PO (08:19)
[2023-09-18] MEDS: VIBRAMYCIN 100 MG PO ×2 (08:19→20:35)
[2023-09-18] MEDS: PROTONIX IV 40 MG IV ×2 (08:20→20:36)
[2023-09-18] MEDS: NSS (PRESERVATIVE FREE) 10 ML IV ×2 (08:20→20:36)
[2023-09-18] MEDS: NOVOLOG FLEXPEN 8 UNITS SC (08:26)
--- NOTE | 2023-09-18 08:29 | W.PN.INTV ---
Addendum entered and electronically signed by Regis Pugh MD 09/18/23 15:59:
Patient has been weaned off insulin, weaned off norepinephrine
Transferred to IVU. Pulmonary will continue to follow
Original Note:
Today's Communication / Plan
Recommendations
Continue to wean norepinephrine
Ramp-up airway clearance, left pleuroparenchymal process noted
If worsens, consider chest ultrasound to rule out pleural effusion
Out of bed to chair
Continue insulin drip
Assessment
-
58-year-old male with history of diabetes, recent COVID August 2023 treated with Paxlovid therapy, primary symptom of cough at that time. Patient recovered without any symptoms. Woke up plan nurse 09/15 with shortness of breath, had cardiac arrest
while at [facility] ED requiring CPR/epi/bicarbonate with ROSC, found to have acute anterior AL per EKG at [facility]. Cardiac catheterization revealed multivessel disease, balloon pump placed, transferred to [facility] CVICU 09/16/23
Acute hypoxic respiratory failure
Intubated at [facility] ED 09/12/23
Extubated 09/17/23
In- hospital cardiac arrest ([facility])
Collapsed in triage
CPR, epi, bicarbonate with ROSC
Cardiogenic shock
IABP placed at [facility]
Anterior ST elevation AL
Multivessel disease per catheterization 09/16/2023
IABP placed
Hyperglycemia, DKA
Acute renal insufficiency, creatinine 1.6
Hypokalemia/hyperkalemia
Hypertriglyceridemia, 900s
Conditions present prior to admission
History of diabetes
Poorly controlled, sees web developer
Recent Covid illness August 2023
s/p Paxlovid
Occasional tobacco history
Plan/recommendations
At this time, patient is a critically ill. Clinical story suggestive of flash pulm edema.
However, has developed increased left pleuroparenchymal process, fevers, productive cough
Started on antibiotics
Responding nicely to chest percussion, airway clearance
Blood sugars improved, insulin drip continues
IABP removed
Right IJ and new radial line placed per CT surgery
Remains on norepinephrine
Moving forward
Continue with medical management
Blood sugars have improved, continue to wean insulin drip off
Continue with antibiotics per infectious disease.
Ceftriaxone/doxycycline
Fever curve improving
Ramp-up airway clearance, chest percussion
Try DuoNebs, if no improvement, discontinue
Per discussion with team, catheterization with multivessel disease
Medical treatment for now, cardiology and CT surgery following
Remains on heparin drip
Wean norepinephrine as able
Triglycerides 900s
Continue glycemic protocol
Blood sugars improved
Anion gap resolved
Follow electrolytes
Heparin drip to be started per cardiology/CT surgery
CT surgery following closely
Echocardiogram EF 35%, normal PA pressures, aortic sclerosis, normal RV size and function
Seem to be diuresing well
Replete magnesium
Creatinine increased to 2.1, seems to have plateaued
Kaur catheter in place
Hemoglobin 10.5, down from 14.2
Normal platelets
Follow
Head of bed elevated, aspiration precautions
GI prophylaxis: Remains on Protonix twice daily
DVT prophylaxis: Heparin drip continues. Mechanical prophylaxis as well
Reviewed above at length with critical care nursing, respiratory care, pharmacy, CT surgery team
TCCT 31 min
Subjective Dataa
Subjective Data
Date of Service:
Date of Service: September 18, 2023
Subjective:
Patient remains critically ill, on insulin drip. Progressive left lower lobe pleural-parenchymal process noted per chest x-ray. Patient has productive cough, responds nicely to her chest percussion therapy, denies hemoptysis. Complaining of left
pleuritic pain. remains on norepinephrine. at bedside
Objective Data
Data Reviewed
Vital Signs / I&O / Oxygen:
Vital Signs
Temp Pulse Resp BP Pulse Ox
98.8 F 109 24 109/58 96
09/18/23 07:00 09/18/23 08:00 09/18/23 08:00 09/17/23 08:54 09/18/23 08:00
Intake and Output
09/17/23 09/18/23 09/19/23
06:59 06:59 06:59
Intake Total 1396.8 / 1425.8 3147.7 / 3173.0 50.6 / 50.6
Output Total 1830 / 1855 1220 / 1320 160 / 160
Balance -433.2 / -429.2 1927.7 / 1853.0 -109.4 / -109.4
SaO2 [A/C] 96
SaO2 96
Nasal Cannula flow liters per 6
minute
Physical Exam
General: Comfortable, Other (Right IJ, radial A-line) and Other (Large neck)
HEENT: Normocephalic and Anicteric
Cardiovascular: S1-S2, Regular Rhythm, Murmur (n), Rub (n), Peripheral Edema (tr) and Other (Chronic venous stasis changes)
Respiratory: Wheeze (n), Crackles (n), Rhonchi (Few at left base), Non-Labored Respirations, Stridor (n), Egophony (n) and Other (Decreased breath sounds left base)
GI: Soft, Non Distended (Obese) and Non Tender
Neurology: Awake, Alert and No Motor Deficits (Moves all extremities)
Skin: Cyanosis (n), Jaundice (n), Rash (n) and Other
Labs/Micro/Reports
Lab Data
09/18/23 04:05
09/18/23 04:05
Laboratory Results
09/17/23
10:59
pH 7.37
pCO2 39
pO2 63 L
HCO3 22.5
O2 Delivery Level
Microbiology
09/16/23 08:51 Throat/Pharynx MRSA Screen - Final
No Methicillin Resistant Staphylococcus aureus isolated.
09/16/23 12:33 Tracheal Aspirate Respiratory Culture - Preliminary
Usual Respiratory Rachel
09/16/23 12:33 Tracheal Aspirate Gram Stain - Preliminary
09/16/23 09:25 Nasal Swab Influenza Types A & B (YENNY) - Final
Negative for Influenza A & B, NAAT
Negative results must be combined with clinical observations
and patient history.
Nucleic Acid Amplification test (NAAT)performed on the
[employer] platform.
--- NOTE | 2023-09-18 09:40 | PN.DE.MGMTRT ---
Insulin Management
- -
09/18/2023 Diabetes Management Consult Follow up
Patient transferred from [facility] s/p cardiac cath with cardiogenic shock, multivessel disease. PMH FL, type 2 diabetes. Patient is critically ill, intubated DKA insulin infusion and multiple other drips. He is sedated. Prior to admission was
taking soliqua 60 units in AM, farxiga 10 mg daily, repaglinide .5 BID. A1C is 9.2, cr 2.1, eGFR 36.26.
Patient is awake alert and oriented, oob in chair, s/o at bedside. Able to discuss diabetes regimen prior to admission and possibilities moving forward. Patient states he sees Endocrine at [facility], Dr. Torres, last A1C was also elevated.
Patient continued on critical care glycemic protocol required up to 14 units of insulin per hour glucose stable 101 to 152. Discussed with PA-C and BUCKLE INSPECTOR patient will not have CABG at this time, medical management and follow with cardiology.
Will discontinue glycemic protocol today. Will resume farxiga 10 mg first dose now and daily, prandin 1 mg AC and 60 units lantus now. Will stop insulin infusion 1.5 hour after Lantus administered. Discussed possible need for meal time insulin
with patient and nurse, nurse will report pre lunch glucose.
Discussed with patient nurse.
Diabetes History
- -
Type of Diabetes: 2 requiring insulin
Pre-Admission Diabetes Regimen
09/17/23 09/18/23
12:57 04:05
Creatinine 2.2 H 2.1 H
Lab Results
Hemoglobin A1c 9.2 % (4.0-5.6) H 09/16/23 07:46
Insulin Pump Settings
IP Diabetes Regimen
09/17/23 09/17/23 09/17/23
09:58 12:01 12:57
Glucose 119 H
POC Glucose 114 H 90
09/17/23 09/17/23 09/17/23
14:09 16:23 17:49
Glucose
POC Glucose 152 H 129 H 101 H
09/17/23 09/17/23 09/18/23
20:15 22:13 00:08
Glucose
POC Glucose 101 H 148 H 105 H
09/18/23 09/18/23 09/18/23
02:07 04:01 04:05
Glucose 140 H
POC Glucose 89 140 H
09/18/23 09/18/23
06:13 08:15
Glucose
POC Glucose 145 H 159 H
Meal type: Breakfast
Meal type: Breakfast
Patient Education
[2023-09-18] MEDS: DUONEB 3 ML INH (10:12)
--- NOTE | 2023-09-18 10:15 | W.PN.HOSP.TC ---
Today's Communication/Plan
-
wean levophed to off
wean O2 to off
can d/c A line from medicine perspective
would d/c phuong in AM 412 and do TOV then
PT/OT
d/c planning
Assessment / Plan
Assessment / Plan
pt is a 58 year old male
Coronary artery disease status post cardiac arrest with CPR due to myocardial infarction status postcardiac catheterization at [facility] with triple-vessel disease--patient was brought over in cardiogenic shock with intra-aortic balloon
pump--that has all resolved--patient is extubated and intra-aortic balloon pump has been removed--plans for definitive cardiac surgery will be deferred to cardiothoracic surgery--wean Levophed to off--troponin was 2.7 on admission, peaked to 4.3,
and is now down to 3.8
Acute hypoxemic respiratory insufficiency/failure with ventilator dependent need for intubation--resolved--patient is extubated and on nasal cannula oxygen--rn vascular consulted, will consult pulmonary for assistance--wean oxygen to off as able
Type 2 diabetes mellitus with peripheral neuropathy--patient was in diabetic ketoacidosis when he arrived--he was placed on insulin drip and anion gap has been closed--he is transitioned over to the critical care glycemic protocol with the
assistance of the diabetic nurse practitioner--can start diabetic diet now that he is extubated--transitioning off glycemic protocol
Presumed sepsis with metabolic acidosis--due to possible pneumonia on admission--chest x-ray shows atelectasis or pneumonia in the retrocardiac left lung base (this is where his chest pain is, but pt has multiple rib fractures on left)--this could
have been the trigger for his cardiac arrest and subsequent DKA--appreciate ID input--cultures negative--continue Rocephin and doxycycline --white count 23.7 on admission, down to 11.8
Thrombocytopenia--possibly from infection, although patient got heparin, cannot rule out HIT-- sent off assay
Hyperlipidemia--continue rosuvastatin as able
Essential hypertension--patient on ramipril as an outpatient--holding for now due to hypotension requiring Levophed and acute kidney injury
Acute kidney injury presumed--unknown baseline--patient's creatinine on admission here was 1.6 and has progressed to 2.1 today--this could be a combination of hypotension, sepsis, contrast studies from the cardiac cath--apprec renal
Hyponatremia--some combination of pseudohyponatremia from glucose of 575 on admission--now that glucose has corrected, may be related to SIADH, volume overload from resuscitative efforts--received IV Lasix--trend I's and O's--apprec renal
DVT prophylaxis
CODE STATUS--full code
Anticipated Discharge: > 48 hours
Subjective/Interval History
-
Date of Service: September 18, 2023
pt sitting in the chair
Objective Data
-
Labs:
Laboratory Results
09/18/23
04:05
WBC 11.8 H
Hgb 10.5 L
Hct 30.2 L
Plt Count 89 L
Sodium 130 L
Potassium 4.9
Chloride 103
Carbon Dioxide 21 L
BUN 59 H
Creatinine 2.1 H
Glucose 140 H
Calcium 8.3 L
Total Bilirubin 1.1
AST 33
ALT 32
Alkaline Phosphatase 55
Vital Signs:
max temp for 24 hours
09/18/23
07:00
Temp 98.8 F
Vital Signs
Temp Pulse Resp BP Pulse Ox
98.8 F 106 24 109/58 96
09/18/23 07:00 09/18/23 09:00 09/18/23 08:00 09/17/23 08:54 09/18/23 09:00
I&O
09/17/23 09/18/23 09/19/23
06:59 06:59 06:59
Intake Total 1396.8 / 1425.8 3147.7 / 3173.0 50.6 / 50.6
Output Total 1829 1220 / 1320 160 / 160
Balance -433.2 / -429.2 1927.7 / 1853.0 -109.4 / -109.4
Review of Systems
-
All other systems: Reviewed and negative
Cardiac: Reports Other (chest pain)
Physical Exam
-
General: Well Developed, Well Nourished and No Apparent Distress
HEENT: Normocephalic, Atraumatic and Oxygen
Respiratory: Decreased Breath Sounds
Cardiac: Regular Rhythm and S1/S2; Negative Murmur
GI: Soft, Nontender, Nondistended and Normal Bowel Sounds
Genito-urinary: Kaur
Musculoskeletal: No Clubbing, No Cyanosis and No Edema
Neuro: Awake
[2023-09-18] MEDS: FARXIGA 10 MG PO (10:17)
[2023-09-18] MEDS: LANTUS 0.599999999999999978 UNITS SC (10:17)
[2023-09-18 10:21] LABS: Glucose - Point of Care 104 mg/dl (70-99)
[2023-09-18 10:31] VITALS: BP 96/48
--- NOTE | 2023-09-18 11:05 | CM ---
Chart reviewed. Patient was OOB sitting in the chair, at bedside. Patient is independent of ADLS, lives with his in a [address], 1 [address], 0 DME. Plan is for the patient to return home. CM to follow
--- NOTE | 2023-09-18 11:21 | W.PN.NEPH.PH ---
Today's Communication / Plan
-
follow labs
keep baca
renal US when can
Assessment/Plan
-
Assessment:
Hypotension
Multivessel coronary disease
Lactic acidosis
DKA
Diabetes mellitus type 2
Acute kidney injury
Hyperlipidemia
Thrombocytopenia
Hyponatremia
Cardiogenic shock
Plan:
SEGUNDO- possible preanal from hypoperfusion from shock, cr slightly better at 2.1
UA bland and U na low , check renal US when can for baseline
wean pressors to keep mean arterial pressure greater than 65
Evaluation for eventual cardiac revascularization
non oliguric with baca
off heparin for low plt, HIT Pending
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
abx per primary
labs in am
d/w nursing and pt , family
-
-
Date of Service: September 18, 2023
CC / HPI / ROS
-
Chief Complaint:
SEGUNDO
History of Present Illness:
cr slightly better at 2.1
on low dose levo
no fever, on 2lit O2
plt low 89
Review of Systems:
mild chest pain from old CPR
no sob at rest
no dizziness
Labs
-
Labs:
WBC 11.8 10^3/uL (4.8-10.8) H 09/18/23 04:05
RBC 3.70 10^6/uL (4.70-6.10) L 09/18/23 04:05
Hgb 10.5 g/dL (13.0-18.0) L 09/18/23 04:05
Hct 30.2 % (39.0-52.0) L 09/18/23 04:05
Plt Count 89 10^3/uL (130-400) L 09/18/23 04:05
Sodium 130 mmol/L (135-145) L 09/18/23 04:05
Potassium 4.9 mmol/L (3.5-5.1) 09/18/23 04:05
Chloride 103 mmol/L (98-107) 09/18/23 04:05
Carbon Dioxide 21 mmol/L (22-30) L 09/18/23 04:05
BUN 59 mg/dl (9-20) H 09/18/23 04:05
Creatinine 2.1 mg/dL (0.7-1.3) H 09/18/23 04:05
eGFR 36.26 09/18/23 04:05
Glucose 140 mg/dl (70-99) H 09/18/23 04:05
Calcium 8.3 mg/dl (8.4-10.2) L 09/18/23 04:05
Qie-B-Ajxxcsquzgb Pept 2540 pg/ml 09/16/23 07:46
Albumin 2.9 g/dl (3.5-5.0) L 09/18/23 04:05
Physical Exam
-
Vital Signs:
Vital Signs
Temp Pulse Resp BP Pulse Ox
97.9 F 105 22 96/48 94
09/18/23 11:00 09/18/23 11:15 09/18/23 11:00 09/18/23 10:31 09/18/23 11:15
Cardiovascular:: Regular rate and rhythm
Lung Excursion:: Abnormal (decreased mostly on left )
Abdomen:: Nontender and Soft
Extremity Edema:: None: Bilateral:
Baca Catheter: Yes
[2023-09-18] MEDS: STERILE WATER FOR INJECTION 10 ML IV ×2 (11:30→12:10)
[2023-09-18 11:54] LABS: Glucose - Point of Care 141 mg/dl (70-99)
[2023-09-18] MEDS: ROCEPHIN 1000 MG IV (12:10)
[2023-09-18] MEDS: PRANDIN 1 MG PO ×2 (12:10→17:22)
[2023-09-18 12:14] VITALS: BP 96/58
--- NOTE | 2023-09-18 12:22 | PTCARENOTE ---
pt VSS, Levophed gtt running as ordered. insulin gtt dc'd as ordered. pt OOB in chair resting. IS and Acapella encouraged. chest PT performed. oral hygiene performed.
[2023-09-18] MEDS: NOVOLOG FLEXPEN SC (12:32)
--- NOTE | 2023-09-18 12:54 | W.PN.CARDCBS ---
Addendum entered and electronically signed by Urbano Carl MD 09/18/23 18:33:
Patient sitting in chair, low-dose Levophed earlier this morning, complains of chest discomfort related to CPR. Not much dyspnea at the present time.
Allergies reviewed, outpatient meds reviewed, current meds reviewed
PMH/PSH/FH/SH: Reviewed
ROS negative except as above
Pulse 100, blood pressure 108/61, respiratory 24, sats 92% on 1 L, weight is 114.6 kg
Head neck exam unremarkable, Diminished breath sounds, Regular rate and rhythm without murmurs or gallops, extremities without much edema, JVD okay
White count 11.8, hemoglobin 10.5, platelets 89, sodium 130, BUN and creatinine 59 and 2.1, peak troponin was 4.4, proBNP 2540
EKG sinus tachycardia, IMI, low voltage precordial leads, possible lateral ischemia
Chest x-ray, opacification of left lower hemithorax, very little fluid, rib fractures
Echo:LAD distribution wall motion abnormality, EF 55%'s, other structures grossly normal
Impression:
Presented to [facility] with SOB 09/16/23 early AM
Acute hypoxic respiratory failure
intubated at [facility] 09/16/23, extubated early 09/17/23In-hospital cardiac arrest at [facility] 09/16/23
collapsed in triage at [facility], ROSC after CPR, Epi and bicarbCardiogenic shock s/p IABP 09/16/23
Anterior STEMI and CAD by cath at [facility] 09/16/23
initial Troponin at was 2.7 09/16/23ypokalemia at [facility] then hyperkalemia at
Hyperglycemia with h/o DM 2
Hyperlipidemia
SEGUNDO
DM 2
DKA
Plan:
Despite his numerous issues listed above, he is improving, weaning off pressors, IABP out.
Volume management per nephrology, he does not appear to be in distress or severely volume overloaded at present.
Presumed pneumonia/atelectasis in left lung.
He is tachycardic, will initiate beta-jose when BP and pulmonary status permits.
He has an LAD distribution wall motion abnormality but EF is now greater than 55% and there is no documentation of malignant arrhythmia as the cause of his arrest. If so, it was in the setting of acute myocardial injury, and his arrest may have
been largely pulmonary.
Based on this, not clear to me at present that he will require ICD implantation. Will need to review with electrophysiology.
Will optimize medical management of CAD with regional wall motion abnormality but preserved global EF.
Original Note:
Today's Communication / Plan
-
Wean Levo as able.
OOB/IS
Follow platelet count closely while on DAPT
Impression / Plan
-
PCP: Dr. Espinoza Bray
Cardiology: None prior to admission, seen by Dr. Ankush hernandez and Dr. Patino at [facility] prior to transfer
Impression:
Presented to [facility] with SOB 09/16/23 early AM
Acute hypoxic respiratory failure
intubated at [facility] 09/16/23, extubated early 09/17/23
In-hospital cardiac arrest at [facility] 09/16/23
collapsed in triage at [facility], ROSC after CPR, Epi and bicarb
Cardiogenic shock s/p IABP 09/16/23
Anterior STEMI and CAD by cath at [facility] 09/16/23
initial Troponin at was 2.7 09/16/23
Hypokalemia at [facility] then hyperkalemia at
Hyperglycemia with h/o DM 2
Hyperlipidemia
SEGUNDO
DM 2
DKA
Echo 09/16/2023: EF 35-40%, inferior, inferoseptal and septal hypokinesis, mild conc LVH, trace MR
Plan:
-Transferred to from [facility] in the setting of cardiac arrest and CAD.
-Cath films from [facility] were reviewed by interventional cardiology and CT surgery. No plans currently for revascularization
-Continue medical management. Continue aspirin and plavix for now, although follow platelet count closely. Down to 89K 09/17.
-Remains on Levo @2. BPs stable overall.
-No complaints of chest pain, does note some rib soreness from CPR.
-O2 requirements improving, down to 2L NC.
-Eventual medical therapy for CM as BP and renal function allow
-Creat remains elevated at 2.1. Nephrology following and plans are for renal US.
-Continue abx per primary service for suspected pneumonia.
-DKA improving on insulin gtt. Known DM prior to admission
-Continue lipitor 40mg daily. LDL 63
-Encouraged OOB, IS
HPI: Patient came to as a transfer from [facility] in the setting of cardiac arrest and CAD, cardiology has been consulted. Patient walked into [facility] ER around 0400 this AM complaining of SOB. His drive him to the hospital. He was able to tell the
gift manager that he was SOB and then collapsed. He was pulseless. Patient was intubated in [facility] ER. He had chest compressions, Epi x1 and bicarb x1, asystole on tele followed by sinus tachycardia. ECG post-ROSC with anterior ST elevation prompting
STEMI alert. Patient was cath'd by covering child care at [facility] and there was evidence of CAD and cardiogenic shock. IABP was placed and patient was sent to . Called his PCP to get records and await their arrival.
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
Subjective
Date of Service: September 18, 2023
No SOB, notes soreness and difficulty getting mucus up due to rib pain
Objective
Labs:
09/18/23 04:05
09/18/23 04:05
Labs
Hgb 10.5 g/dL (13.0-18.0) L 09/18/23 04:05
Hct 30.2 % (39.0-52.0) L 09/18/23 04:05
Plt Count 89 10^3/uL (130-400) L 09/18/23 04:05
PT 15.5 Sec (11.4-14.6) H 09/16/23 07:46
INR 1.25 09/16/23 07:46
APTT 76.9 Sec (23.4-35.0) H 09/17/23 00:19
Sodium 130 mmol/L (135-145) L 09/18/23 04:05
Potassium 4.9 mmol/L (3.5-5.1) 09/18/23 04:05
BUN 59 mg/dl (9-20) H 09/18/23 04:05
Creatinine 2.1 mg/dL (0.7-1.3) H 09/18/23 04:05
Glucose 140 mg/dl (70-99) H 09/18/23 04:05
Troponins
09/16/23 09/16/23 09/16/23
07:46 11:29 22:04
Troponin I 2.700 H* 3.330 H* 4.380 H*
09/17/23
04:06
Troponin I 3.870 H*
Vital Signs and I&O:
Vital Signs
Temp Pulse Resp BP Pulse Ox
97.9 F 101 20 96/58 98
09/18/23 11:00 09/18/23 12:30 09/18/23 12:00 09/18/23 12:14 09/18/23 12:30
Vital Signs
Temp Pulse Resp BP Pulse Ox
97.9 F 101 20 96/58 98
09/18/23 11:00 09/18/23 12:30 09/18/23 12:00 09/18/23 12:14 09/18/23 12:30
Intake & Output
09/16/23 09/17/23 09/18/23 09/19/23
06:59 06:59 06:59 06:59
Intake Total 1396.8 / 1425.8 3147.7 / 3183.0 629.5 / 629.5
Output Total 1830 / 1855 1220 / 1320 310 / 310
Balance -433.2 / -429.2 1927.7 / 1863.0 319.5 / 319.5
Physical Exam
Physical Exam
GEN: AAOx3, supplemental O2 in place
HEENT: MMM
LUNGS: Scattered rhonchi, no wheeze
CV: Reg, no murmur
EXT: No clubbing, cyanosis, or edema B/L
NEURO: Gross non-focal
SKIN: Warm, dry, no rash
[2023-09-18] MEDS: XOPENEX 0.63 MG INHALANT SOLUTION INH ×2 (14:11→19:22)
[2023-09-18 14:30] VITALS: BP 116/62
--- NOTE | 2023-09-18 14:54 | W.PN.ID1 ---
Date of Service
Date of Service: September 18, 2023
Today's Communication
Contine abx.
Assessment / Plan
Acute [place]
S/P CPR
Leukocytosis
Pulmonary infiltrate; PNA versus pneumonitis
Fever
DM
Recommendations:
Continue ceftriaxone and doxycycline.
Monitor white count and temperature curve.
Follow CXR.
Chief Complaint
-: Pneumonia
Subjective / Review of Systems
Review of Systems: No Fever and No Chills
Vital Signs / Physical Exam
Vital Signs
Vital Signs
Temp Pulse Resp BP Pulse Ox
97.9 F 108 22 96/58 93
09/18/23 11:00 09/18/23 14:15 09/18/23 13:55 09/18/23 12:14 09/18/23 14:15
Physical Exam
Constitutional: No Acute Distress, Comfortable and Non-toxic
Eyes: No Conjunctival Hemorrhage and Sclera Anicteric
Cardiovascular: S1/S2; Negative S3/S4
Pulmonary: Coarse and Non Labored
Extremities: Edema; Negative Cyanosis or Erythema
Neurological: Awake and Alert
Psychological: Calm
Lines: Other (Right Cordus)
Objective Data
Lab Data
Lab Results
09/18/23 04:05
09/18/23 04:05
PT 15.5 Sec (11.4-14.6) H 09/16/23 07:46
INR 1.25 09/16/23 07:46
APTT 76.9 Sec (23.4-35.0) H 09/17/23 00:19
Estimated Creat Clear 50 ml/min 09/18/23 04:05
Lactic Acid 2.5 mmol/L (0.7-2.0) H 09/16/23 19:53
Total Bilirubin 1.1 mg/dl (0.2-1.3) 09/18/23 04:05
AST 33 U/L (17-59) 09/18/23 04:05
ALT 32 U/L (0-50) 09/18/23 04:05
Alkaline Phosphatase 55 U/L (38-126) 09/18/23 04:05
Most recent labs reviewed.
Micro Results:
09/16/23 12:33 Respiratory Culture - Final
Tracheal Aspirate Usual Respiratory Rachel
Gram Stain - Final
09/17/23 08:44 Blood Culture - Preliminary
Blood/Venous No Growth in 24 hours- Final report to follow
09/17/23 08:34 Blood Culture - Preliminary
Blood/Venous No Growth in 24 hours- Final report to follow
09/16/23 08:51 MRSA Screen - Final
Throat/Pharynx No Methicillin Resistant Staphylococcus aureus isolated.
09/16/23 09:25 Influenza Types A & B (YENNY) - Final
Nasal Swab Negative for Influenza A & B, NAAT
Negative results must be combined with clinical observations
and patient history.
Nucleic Acid Amplification test (NAAT)performed on the
[employer] platform.
Imaging:
09/17/2023 CXR (portable): ET tube has been removed. Tip of the intra-aortic balloon pump is in the proximal descending thoracic aorta. Pulmonary edema has resolved in the interval since the prior study. There is confluent parenchymal density in
the retrocardiac left lung base which may be atelectasis or pneumonia. Please see full dictation for additional detail. Film personally viewed.
[2023-09-18 15:16] VITALS: BP 108/61
[2023-09-18] MEDS: ROXICODONE 2.5 MG PO (15:49)
--- NOTE | 2023-09-18 16:40 | W.PN.UPDATE ---
Update Note
Progress Note Update
result of HIT assay is 0.3 (normal is < 0.4)
[2023-09-18 17:22] LABS: Glucose - Point of Care 157 mg/dl (70-99)
[2023-09-18] MEDS: LIPITOR 40 MG PO (17:22)
[2023-09-18] MEDS: NOVOLOG FLEXPEN-LOW RESISTANCE 1 UNITS SC (17:22)
[2023-09-18 19:11] VITALS: BP 111/55
--- NOTE | 2023-09-18 20:00 | PTCARENOTE ---
report received from previous RN, walking rounds done. pt in chair, AAOx4. pt denies any pain. VSS. ST on monitor, HR 100's-110's. RIJ cordis intact and patent. POX 91% on room air. IS and acapella encouraged. R groin and R wrist dressings CDI.
baca catheter intact, draining clear yellow urine. UO adequate. PIV x2 intact and patent. see worklist for full assessment, VS, and interventions. pt resting comfortably.
[2023-09-18] MEDS: MUCINEX 1200 MG PO (20:35)
[2023-09-18] MEDS: SENOKOT 8.59999999999999964 MG PO (20:36)
[2023-09-18 21:03] LABS: Glucose - Point of Care 172 mg/dl (70-99)
[2023-09-18 22:26] VITALS: BP 125/75
[2023-09-19] VITALS (13 sets, daily range): BP systolic 84–135; BP diastolic 37–76; PULSE 96–97; O2SAT 92–93
[2023-09-19] MEDS: TYLENOL 650 MG PO ×3 (05:10→20:01)
--- NOTE | 2023-09-19 05:10 | PTCARENOTE ---
no acute changes, pt VSS. AAOx4. PRN oxy and tylenol given for left sided rib pain. ST 110's. O2 increased to 4LNC, POX 93%. coughing and deep breathing exercises encouraged. baca catheter remains in place. AM labs drawn and sent. EKG completed. pt
resting between care w @ bedside.
[2023-09-19] MEDS: ROXICODONE 5 MG PO ×2 (05:11→10:04)
[2023-09-19 05:41] LABS: Hemoglobin 10.9 g/dL (13.0-18.0); Mean Corp Hgb Conc. 35.2 g/dL (33.0-37.0); Mean Corpuscular Hgb 28.4 pg (27.0-31.0); Mean Corpuscular Volume 80.7 fL (80.0-94.0); Mean Platelet Volume 9.7 fL (7.4-10.4); Platelet Count 82 10^3/uL (130-400); Red Blood Cell Count 3.84 10^6/uL (4.70-6.10); Red Cell Dist. Width 14.1 % (11.5-14.5); White Blood Cell Count 7.2 10^3/uL (4.8-10.8)
[2023-09-19 06:12] LABS: ALT (SGPT) 29 U/L (0-50); AST (SGOT) 40 U/L (17-59); Alkaline Phosphatase 54 U/L (38-126); Blood Urea Nitrogen 62 mg/dl (9-20); Calcium 8.2 mg/dl (8.4-10.2); Carbon Dioxide 23 mmol/L (22-30); Chloride 98 mmol/L (98-107); Estimated Creatinine Clearance 65 ml/min; Glucose 193 mg/dl (70-99); Magnesium 1.9 mg/dl (1.6-2.3); Potassium 4.8 mmol/L (3.5-5.1); Sodium 130 mmol/L (135-145); Total Bilirubin 0.8 mg/dl (0.2-1.3); Total Protein 5.2 g/dl (6.3-8.2); eGFR 50.26
[2023-09-19] MEDS: XOPENEX 0.63 MG INHALANT SOLUTION 0.630000000000000004 MG INH ×3 (07:36→19:45)
--- NOTE | 2023-09-19 08:01 | W.PN.CARDCBS ---
Addendum entered and electronically signed by Tramaine Martinez MD 09/19/23 10:56:
patient seen and examined
agree with PA-C note
agree with PA-C plan
discussed plan with
no witnessed christina or tachyarrhythmia
exam:
right ij
non focal neurologically
aao x 3
cor regular
lungs ctab
abd soft nt nd
no ext edema
Impression:
Presented to [facility] with SOB 09/16/23 early AM
Acute hypoxic respiratory failure
intubated at [facility] 09/16/23, extubated early 09/17/23In-hospital cardiac arrest at [facility] 09/16/23
collapsed in triage at [facility], ROSC after CPR, Epi and bicarbCardiogenic shock s/p IABP 09/16/23
Anterior STEMI and CAD by cath at [facility] 09/16/23
initial Troponin at was 2.7 09/16/23ypokalemia at [facility] then hyperkalemia at
Hyperglycemia with h/o DM 2
Hyperlipidemia
SEGUNDO
DM 2
DKA
Echo 09/16/2023: EF 35-40%, inferior, inferoseptal and septal hypokinesis, mild conc LVH, trace MR
Echo 09/17/2023: EF 55%, severe hypokinesis of the distal anteroseptal, distal inferior, and apical barrios
Plan:
-Transferred to from [facility] in the setting of cardiac arrest and CAD.
-Cath films from [facility] were reviewed by interventional cardiology and CT surgery. No plans currently for revascularization
-Continue medical management. Continue aspirin and plavix for now, although follow platelet count closely. Down to 82K 09/18.
-No complaints of chest pain, does note some rib soreness from CPR which is limiting ability to take deep breaths and cough.
-CT chest noted large L lower lobe consolidation consistent w/ pneumonia. Continue abx per ID.
-BPs improving, weaned off levo. Would consider starting low dose BB today pending BP trends.
-No documentation of malignant arrhythmia as cause of cardiac arrest. At this point does not require ICD implantation, however would consider further monitoring as OP.
-Creat improving, down to 1.6 09/18. Nephrology following.
-Continue lipitor 40mg daily. LDL 63
-On 2L NC. Wean as able.
-PT/OT, encouraged IS
-They expressed interest in seeing Dr. Patino for follow up in cardiology. I offered to do 7 day monitor at discharge and they would like to follow up there. From an EP perspective no indication for any further therapy at this time
Original Note:
Today's Communication / Plan
-
Continue abx per ID
Continue aspirin and plavix, follow plt
Consider low dose BB
Impression / Plan
-
PCP: Dr. Espinoza Bray
Cardiology: None prior to admission, seen by Dr. Ankush hernandez and Dr. Patino at [facility] prior to transfer
Impression:
Presented to [facility] with SOB 09/16/23 early AM
Acute hypoxic respiratory failure
intubated at [facility] 09/16/23, extubated early 09/17/23
In-hospital cardiac arrest at [facility] 09/16/23
collapsed in triage at [facility], ROSC after CPR, Epi and bicarb
Cardiogenic shock s/p IABP 09/16/23
Anterior STEMI and CAD by cath at [facility] 09/16/23
initial Troponin at was 2.7 09/16/23
Hypokalemia at [facility] then hyperkalemia at
Hyperglycemia with h/o DM 2
Hyperlipidemia
SEGUNDO
DM 2
DKA
Echo 09/16/2023: EF 35-40%, inferior, inferoseptal and septal hypokinesis, mild conc LVH, trace MR
Echo 09/17/2023: EF 55%, severe hypokinesis of the distal anteroseptal, distal inferior, and apical barrios
Plan:
-Transferred to from [facility] in the setting of cardiac arrest and CAD.
-Cath films from [facility] were reviewed by interventional cardiology and CT surgery. No plans currently for revascularization
-Continue medical management. Continue aspirin and plavix for now, although follow platelet count closely. Down to 82K 09/18.
-No complaints of chest pain, does note some rib soreness from CPR which is limiting ability to take deep breaths and cough.
-CT chest noted large L lower lobe consolidation consistent w/ pneumonia. Continue abx per ID.
-BPs improving, weaned off levo. Would consider starting low dose BB today pending BP trends.
-No documentation of malignant arrhythmia as cause of cardiac arrest. At this point does not require ICD implantation, however would consider further monitoring as OP.
-Creat improving, down to 1.6 09/18. Nephrology following.
-Continue lipitor 40mg daily. LDL 63
-On 2L NC. Wean as able.
-PT/OT, encouraged IS
HPI: Patient came to as a transfer from [facility] in the setting of cardiac arrest and CAD, cardiology has been consulted. Patient walked into [facility] ER around 0400 this AM complaining of SOB. His drive him to the hospital. He was able to tell the
folder stitcher operator that he was SOB and then collapsed. He was pulseless. Patient was intubated in [facility] ER. He had chest compressions, Epi x1 and bicarb x1, asystole on tele followed by sinus tachycardia. ECG post-ROSC with anterior ST elevation prompting
STEMI alert. Patient was cath'd by covering shoe lay out planner at [facility] and there was evidence of CAD and cardiogenic shock. IABP was placed and patient was sent to . Called his PCP to get records and await their arrival.
Progress Note - Crystal Report Developer
Subjective
Date of Service: September 19, 2023
Still w/ cough and soreness of ribs.
Objective
Labs:
09/19/23 05:22
09/19/23 05:22
Labs
Hgb 10.9 g/dL (13.0-18.0) L 09/19/23 05:22
Hct 31.0 % (39.0-52.0) L 09/19/23 05:22
Plt Count 82 10^3/uL (130-400) L 09/19/23 05:22
PT 15.5 Sec (11.4-14.6) H 09/16/23 07:46
INR 1.25 09/16/23 07:46
APTT 76.9 Sec (23.4-35.0) H 09/17/23 00:19
Sodium 130 mmol/L (135-145) L 09/19/23 05:22
Potassium 4.8 mmol/L (3.5-5.1) 09/19/23 05:22
BUN 62 mg/dl (9-20) H 09/19/23 05:22
Creatinine 1.6 mg/dL (0.7-1.3) H 09/19/23 05:22
Glucose 193 mg/dl (70-99) H 09/19/23 05:22
Troponins
09/16/23 09/16/23 09/16/23
07:46 11:29 22:04
Troponin I 2.700 H* 3.330 H* 4.380 H*
09/17/23
04:06
Troponin I 3.870 H*
Vital Signs and I&O:
Vital Signs
Temp Pulse Resp BP Pulse Ox
98.7 F 99 22 109/57 93
09/19/23 05:07 09/19/23 07:00 09/19/23 05:07 09/19/23 05:07 09/19/23 05:07
Vital Signs
Temp Pulse Resp BP Pulse Ox
98.7 F 99 22 109/57 93
09/19/23 05:07 09/19/23 07:00 09/19/23 05:07 09/19/23 05:07 09/19/23 05:07
Intake & Output
09/17/23 09/18/23 09/19/23 09/20/23
06:59 06:59 06:59 06:59
Intake Total 1396.8 / 1425.8 3147.7 / 3183.0 708.3 / 708.3
Output Total 1830 / 1855 1220 / 1320 1260 / 1260
Balance -433.2 / -429.2 1927.7 / 1863.0 -551.7 / -551.7
Physical Exam
Physical Exam
GEN: AAOx3, supplemental O2 in place
HEENT: MMM
LUNGS: Scattered rhonchi, no wheeze
CV: Reg, no murmur
EXT: No clubbing, cyanosis, or edema B/L
NEURO: Gross non-focal
SKIN: Warm, dry, no rash
--- NOTE | 2023-09-19 08:13 | PN.DE.MGMTRT ---
Insulin Management
- -
09/19/2023 Diabetes Management F/U:
Patient transferred from [facility] s/p cardiac cath with cardiogenic shock, multivessel disease. PMH NC, type 2 diabetes. Patient is critically ill, intubated DKA insulin infusion and multiple other drips. He is sedated. Prior to admission was
taking Soliqua 60 units in AM, Farxiga 10 mg daily, repaglinide .5 BID. A1C is 9.2, cr 2.1, eGFR 36.26. No plans for CABG at this time, medical management and follow with cardiology.
Patient is awake alert and oriented, OOB in chair. Able to discuss current diabetes regimen.
Patient states he sees Endocrine at [facility], Dr. Torres, states his last in office A1C was also elevate >9%
Patient transitioned off glycemic protocol yesterday. Glucose stable but still not optimal. Pt had been taking Prandin 0.5mg BID, explained to pt that his Prandin has been increased to 1mg TID for optimal glucose control. He will need close OP F/U
with his Endo for further dose adjustments after discharge.
Will make no changes to current regimen:- Farxiga 10 mg, Prandin 1 mg AC and Lantus 60 units in AM.
Discussed with patient's nurse.
Diabetes History
- -
Type of Diabetes: 2 requiring insulin
Pre-Admission Diabetes Regimen
09/19/23
05:22
Creatinine 1.6 H
Lab Results
Hemoglobin A1c 9.2 % (4.0-5.6) H 09/16/23 07:46
Insulin Pump Settings
IP Diabetes Regimen
09/18/23 09/18/23 09/18/23
08:15 10:19 11:50
Glucose
POC Glucose 159 H 104 H 141 H
09/18/23 09/18/23 09/19/23
17:21 21:01 05:22
Glucose 193 H
POC Glucose 157 H 172 H
Meal type: Dinner
Meal type: Breakfast
Amount consumed: 100%
Patient Education
[2023-09-19 08:37] LABS: Glucose - Point of Care 220 mg/dl (70-99)
[2023-09-19] MEDS: NOVOLOG FLEXPEN-LOW RESISTANCE 2 UNITS SC ×2 (08:47→18:20)
[2023-09-19] MEDS: MIRALAX PO (08:50)
[2023-09-19] MEDS: MUCINEX 1200 MG PO ×2 (08:51→20:01)
[2023-09-19] MEDS: COLACE 100 MG PO ×2 (08:51→20:00)
[2023-09-19] MEDS: FARXIGA 10 MG PO (08:51)
[2023-09-19] MEDS: LOW STRENGTH ASPIRIN 81 MG PO (08:52)
[2023-09-19] MEDS: PLAVIX 75 MG PO (08:52)
[2023-09-19] MEDS: PRANDIN 1 MG PO ×3 (08:52→18:20)
[2023-09-19] MEDS: PROTONIX IV 40 MG IV ×2 (08:54→20:02)
[2023-09-19] MEDS: NSS (PRESERVATIVE FREE) 10 ML IV ×2 (08:54→20:02)
[2023-09-19] MEDS: VIBRAMYCIN 100 MG PO ×2 (08:55→20:01)
[2023-09-19] MEDS: LANTUS 0.599999999999999978 UNITS SC (09:16)
--- NOTE | 2023-09-19 09:22 | W.PN.PUL3 ---
Today's Communication / Plan
-
Weaning O2 as tolerated, eventual home O2 assessment
Airway clearance reviewed with patient, limited due to rib pain
Add pain control, scheduled
Add vest, mucomyst
Repeat CXR in 24-48 hours
No fluid to tap
Encourage OOB/PT
Cards following for further post arrest management
Assessment
-
58-year-old male with history of diabetes, recent COVID August 2023 treated with Paxlovid therapy, primary symptom of cough at that time. Patient recovered without any symptoms. Woke up fire claims adjuster 09/15 with shortness of breath, had cardiac arrest
while at [facility] ED requiring CPR/epi/bicarbonate with ROSC, found to have acute anterior CO per EKG at [facility]. Cardiac catheterization revealed multivessel disease, balloon pump placed, transferred to [facility] CVICU 09/16/23
Acute hypoxic respiratory failure
Intubated at [facility] ED 09/12/23
Extubated 09/17/23
In- hospital cardiac arrest ([facility])
Collapsed in triage
CPR, epi, bicarbonate with ROSC
Cardiogenic shock
IABP placed at [facility]
Anterior ST elevation CO
Multivessel disease per catheterization 09/16/2023
IABP placed
Hyperglycemia, DKA
Acute renal insufficiency, creatinine 1.6
Hypokalemia/hyperkalemia
Hypertriglyceridemia, 900s
L sided moderate sized atelectasis likely mucus plug/hypoventilation
Conditions present prior to admission
History of diabetes
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
Recent Covid illness August 2023
s/p Paxlovid
Occasional tobacco history
Plan
91% on 1L, can eventually wean to off when lungs are improved
Home o2 eval eventually
Extubated 09/16, L sided infiltrate developed 09/17
Persistent L sided atelectasis, likely plug
Due to fevers, productive cough/started on antibiotics
Repeat CT showing persistence
We discussed aggressive airway clearance--he is limited due to rib pain from compressions
Add lidocaine patch, schedule tylenol q4
I will add mucomyst, vest BID
Chest US not showing significant pleural fluid
Can repeat CXR in 24-48 hours
Blood sugars improved, insulin transitioned to SQ
IABP removed
Right IJ and new radial line placed per CT surgery
Off pressors
Per discussion with team, catheterization with multivessel disease
Medical treatment for now, cardiology and CT surgery following
Echocardiogram EF 35%, normal PA pressures, aortic sclerosis, normal RV size and function
Seem to be diuresing well
Replete electrolytes as needed
Creatinine increased to 2.1, seems to have plateaued
Kaur catheter in place
Head of bed elevated, aspiration precautions
GI prophylaxis: Remains on Protonix twice daily
DVT prophylaxis: Heparin drip continues. Mechanical prophylaxis as well
Diagnostic Data
CXR 09/19/23- Subtotal opacification of the left chest, unchanged, including differential diagnostic possibilities.
CT CHEST 09/19/23- Large left lower lobe consolidation with air bronchograms extending to the left common with accompanying small left pleural effusion compatible with pneumonia. Follow-up imaging to confirm complete resolution recommended. Right
lower lobe subsegmental atelectasis. Coronary artery calcifications.
CHEST US 09/18/23- Small left pleural effusion measuring 1 x 8 x 2.5 cm, with an estimated volume of 10 mL. It appears that most of the opacity on radiographic examination corresponds to parenchymal consolidation.
ECHO 09/17/23- Normal left ventricular size and systolic function. Severe hypokinesis of the distal anteroseptal, distal inferior and apical barrios. LV ejection fraction is 55% by visual assessment. Normal right ventricular size and function. Normal
pericardium without effusion. Compared to previous echo 09/16/23, the LVEF has improved from 35% to 50-55%.
All relevant imaging reviewed.
Subjective Data
-
Date of Service:
Date of Service: September 19, 2023
Chief Complaint: Pulmonary Follow Up
Subjective:
no acute events ON
ongoing rib pain on L, not taking deep breaths
otherwise no new complaints
Objective Data
Data Reviewed
Vital Signs / I&O / Oxygen:
Vital Signs
Temp Pulse Resp BP Pulse Ox
98.2 F 99 18 109/57 94
09/19/23 09:12 09/19/23 07:00 09/19/23 09:12 09/19/23 05:07 09/19/23 09:12
Intake and Output
09/18/23 09/19/23 09/20/23
06:59 06:59 06:59
Intake Total 3147.7 / 3183.0 708.3 / 708.3
Output Total 1220 / 1320 1260 / 1260
Balance 1927.7 / 1863.0 -551.7 / -551.7
SaO2 [A/C] 96
SaO2 94
Nasal Cannula flow liters per 4
minute
Physical Exam
General: Comfortable, Pain and Other (NAD)
HEENT: Normocephalic, Anicteric and Moist Mucous Membranes
Cardiovascular: S1-S2 and Regular Rhythm
Respiratory: Clear, Non-Labored Respirations and Other (decreased to absent on L)
GI: Soft, Non Distended and Non Tender
Neurology: Awake, Alert, Oriented, AO x 3 and No Motor Deficits
Skin: Warm, Dry and Good Color
Labs/Micro/Reports
Lab Data
09/19/23 05:22
09/19/23 05:22
Microbiology
09/17/23 08:44 Blood/Venous Blood Culture - Preliminary
No Growth in 48 hours- Final report to follow
09/17/23 08:34 Blood/Venous Blood Culture - Preliminary
No Growth in 48 hours- Final report to follow
09/16/23 12:33 Tracheal Aspirate Respiratory Culture - Final
Usual Respiratory Rachel
09/16/23 12:33 Tracheal Aspirate Gram Stain - Final
09/16/23 08:51 Throat/Pharynx MRSA Screen - Final
No Methicillin Resistant Staphylococcus aureus isolated.
09/16/23 09:25 Nasal Swab Influenza Types A & B (YENNY) - Final
Negative for Influenza A & B, NAAT
Negative results must be combined with clinical observations
and patient history.
Nucleic Acid Amplification test (NAAT)performed on the
[employer] platform.
--- NOTE | 2023-09-19 10:45 | PTCARENOTE ---
Provided education to patient and patient's on medications. Pt is now on 2L NC at 95% SpO2. Pt worked with PT/OT, 5mg oxycodone given for rib pain per order to work with PT. Pt also had CT chest this am around 0900.
--- NOTE | 2023-09-19 11:06 | W.PN.ID1 ---
Date of Service
Date of Service: September 19, 2023
Today's Communication
Continue antibiotics.
Assessment / Plan
Acute [place]
S/P CPR
Leukocytosis
- improved
Pulmonary infiltrate; PNA versus pneumonitis
Fever
DM
Recommendations:
Continue ceftriaxone and doxycycline (d#3). If continued improvement, can transition ceftriaxone to cefdinir. Would continue with antibiotics through 09/24/2023.
Monitor white count and temperature curve.
Follow CXR.
Chief Complaint
-: Pneumonia
Subjective / Review of Systems
Review of Systems: No Fever, No Chills and Cough (occasional)
Vital Signs / Physical Exam
Vital Signs
Vital Signs
Temp Pulse Resp BP Pulse Ox
97.6 F 95 20 109/59 93
09/19/23 10:53 09/19/23 09:01 09/19/23 10:53 09/19/23 09:01 09/19/23 10:53
Physical Exam
Physical Exam:
Constitutional: No Acute Distress, Comfortable and Non-toxic
Eyes: No Conjunctival Hemorrhage and Sclera Anicteric
Cardiovascular: S1/S2; Negative S3/S4
Pulmonary: Coarse and Non Labored
Extremities: Edema; Negative Cyanosis or Erythema
Neurological: Awake and Alert
Psychological: Calm
Lines: Other (Right IJ Cordus)
Objective Data
Lab Data
Lab Results
09/19/23 05:22
09/19/23 05:22
PT 15.5 Sec (11.4-14.6) H 09/16/23 07:46
INR 1.25 09/16/23 07:46
APTT 76.9 Sec (23.4-35.0) H 09/17/23 00:19
Estimated Creat Clear 65 ml/min 09/19/23 05:22
Lactic Acid 2.5 mmol/L (0.7-2.0) H 09/16/23 19:53
Total Bilirubin 0.8 mg/dl (0.2-1.3) 09/19/23 05:22
AST 40 U/L (17-59) 09/19/23 05:22
ALT 29 U/L (0-50) 09/19/23 05:22
Alkaline Phosphatase 54 U/L (38-126) 09/19/23 05:22
Most recent labs reviewed.
Micro Results:
09/17/23 08:44 Blood Culture - Preliminary
Blood/Venous No Growth in 48 hours- Final report to follow
09/17/23 08:34 Blood Culture - Preliminary
Blood/Venous No Growth in 48 hours- Final report to follow
09/16/23 12:33 Respiratory Culture - Final
Tracheal Aspirate Usual Respiratory Rachel
Gram Stain - Final
09/16/23 08:51 MRSA Screen - Final
Throat/Pharynx No Methicillin Resistant Staphylococcus aureus isolated.
09/16/23 09:25 Influenza Types A & B (YENNY) - Final
Nasal Swab Negative for Influenza A & B, NAAT
Negative results must be combined with clinical observations
and patient history.
Nucleic Acid Amplification test (NAAT)performed on the
[employer] platform.
Imaging:
09/17/2023 CXR (portable): ET tube has been removed. Tip of the intra-aortic balloon pump is in the proximal descending thoracic aorta. Pulmonary edema has resolved in the interval since the prior study. There is confluent parenchymal density in
the retrocardiac left lung base which may be atelectasis or pneumonia. Please see full dictation for additional detail. Film personally viewed.
[2023-09-19] MEDS: ROCEPHIN 1000 MG IV (11:31)
[2023-09-19 12:31] LABS: Glucose - Point of Care 253 mg/dl (70-99)
[2023-09-19] MEDS: LIDOCAINE 4% PATCH 1 PATCH TOPICAL (12:37)
[2023-09-19] MEDS: NOVOLOG FLEXPEN-LOW RESISTANCE 3 UNITS SC (12:41)
[2023-09-19] MEDS: MUCOMYST 10% 2 ML INH (13:22)
--- NOTE | 2023-09-19 13:48 | W.PN.CT ---
Today's Communication / Plan
-
- Continue management of pneumonia
- Patient has poor targets for revascularization; would recommend medical management and follow up with an outpatient ship/rec/doc control. CT surgery will sign off.
Assessment / Plan
-
#CAD-admitted to on 09/15, on ASA, Plavix, Lipitor
#Cardiogenic shock/AL- IABP dcd 09/16
#Pulmonary edema/ respiratory code/CPR
#Ventilator dependent respiratory failure- resolved
#Acute kidney injury (baseline Cr unknown, was 1.27 at [facility])
#Hyperkalemia/ hyponatremia
#Leukocytosis/fever/ suspected PNA- started on Ceftriaxone and Doxycycline on 09/16 by ID
#DKA
#Shock liver
#Multiorgan dysfunction
Subjective
Procedure
Transferred from [facility] for CAD eval for CABG. Pt. had IABP placed and was intubated and OSH.
-
Date of Service: September 19, 2023
Objective Data
-
Lab Results
09/19/23 05:22
09/19/23 05:22
PT 15.5 Sec (11.4-14.6) H 09/16/23 07:46
INR 1.25 09/16/23 07:46
APTT 76.9 Sec (23.4-35.0) H 09/17/23 00:19
Vital Signs
Vital Signs
Temp Pulse Resp BP Pulse Ox
97.6 F 89 20 135/76 93
09/19/23 10:53 09/19/23 11:00 09/19/23 10:53 09/19/23 10:22 09/19/23 10:[address]
CT Intake/Output/Weight
09/18/23 09/19/23 09/19/23
18:59 06:59 18:59
Intake Total 708.3 / 708.3 240 / 240
Output Total 660 / 1260 600 / 1260 200 / 200
Balance 48.3 / -551.7 -600 / -551.7 40 / 40
SaO2: 93
--- NOTE | 2023-09-19 13:50 | W.PN.HOSP.TC ---
Today's Communication/Plan
-
Monitor vital signs and see plan
Continue with antibiotics
Monitor sugars
Monitor creatinine
PT/OT recommending acute rehab, physiatry consulted
Wean O2 as tolerated
Assessment / Plan
Assessment / Plan
pt is a 58 year old male
Coronary artery disease status post cardiac arrest with CPR due to myocardial infarction status postcardiac catheterization at [facility] with triple-vessel disease--patient was brought over in cardiogenic shock with intra-aortic balloon
pump--that has all resolved--patient is extubated and intra-aortic balloon pump has been removed--plans for definitive cardiac surgery will be deferred to cardiothoracic surgery--wean Levophed to off--troponin was 2.7 on admission, peaked to 4.3,
and is now down to 3.8
dc cordis if dont need it per cardiology and CTS
Per CT surgery, patient has poor targets for revascularization, they recommended medical management and follow-up with outpatient flight agent.
Cardiology following
Cardiogenic shock
IABP placed at [facility] and now dc'ed
Acute hypoxemic respiratory failure with ventilator dependent need for intubation--resolved--patient is extubated and on nasal cannula oxygen--pulmonary following--wean oxygen to off as able, currently on 4 L. Will need home O2 evaluation
L sided moderate sized atelectasis likely mucus plug/hypoventilation
CT chest 09/18 with large left lower lobe consolidation
Type 2 diabetes mellitus with peripheral neuropathy--patient was in diabetic ketoacidosis when he arrived--he was placed on insulin drip and anion gap has been closed--he is transitioned over to the critical care glycemic protocol with the
assistance of the diabetic nurse practitioner--now on Farxiga, Lantus and Prandin
Presumed sepsis with metabolic acidosis--due to possible pneumonia on admission--chest x-ray shows atelectasis or pneumonia in the retrocardiac left lung base (this is where his chest pain is, but pt has multiple rib fractures on left)--this could
have been the trigger for his cardiac arrest and subsequent DKA--appreciate ID input--cultures negative--continue Rocephin and doxycycline --white count 23.7 on admission, now resolved
Thrombocytopenia--possibly from infection, although patient got heparin, HIT panel negative
Hyponatremia
Monitor
Hyperlipidemia--continue rosuvastatin as able
Essential hypertension--patient on ramipril as an outpatient--will restart once kidney function improves
Acute kidney injury presumed--unknown baseline-this could be a combination of hypotension, sepsis, contrast studies from the cardiac cath--apprec renal. Creatinine slowly improving
DVT prophylaxis
SCD's
CODE STATUS--full code
PT/OT recommending acute rehab; physiatry consulted
General: Well Developed, Well Nourished and No Apparent Distress
HEENT: Normocephalic, Atraumatic and Oxygen
Respiratory: Decreased Breath Sounds
Cardiac: Regular Rhythm and S1/S2; Negative Murmur
GI: Soft, Nontender, Nondistended and Normal Bowel Sounds
Genito-urinary: Kaur
Musculoskeletal: No Clubbing, No Cyanosis and No Edema
Neuro: Awake
Anticipated Discharge: > 48 hours
Subjective/Interval History
-
Date of Service: September 19, 2023
Does have some pain
Objective Data
-
Labs:
Laboratory Results
09/19/23
05:22
WBC 7.2
Hgb 10.9 L
Hct 31.0 L
Plt Count 82 L
Sodium 130 L
Potassium 4.8
Chloride 98
Carbon Dioxide 23
BUN 62 H
Creatinine 1.6 H
Glucose 193 H
Calcium 8.2 L
Total Bilirubin 0.8
AST 40
ALT 29
Alkaline Phosphatase 54
Vital Signs:
Vital Signs
Temp Pulse Resp BP Pulse Ox
97.6 F 89 20 135/76 93
09/19/23 10:53 09/19/23 11:00 09/19/23 10:53 09/19/23 10:22 09/19/23 13:49
I&O
09/18/23 09/19/23 09/20/23
06:59 06:59 06:59
Intake Total 3147.7 / 3183.0 708.3 / 708.3 240 / 240
Output Total 1220 / 1320 1260 / 1260 200 / 200
Balance 1927.7 / 1863.0 -551.7 / -551.7 40 / 40
--- NOTE | 2023-09-19 14:56 | PTCARENOTE ---
Order to D/C R IJ cordis cath. Cordis cath removed by Camila HOLBROOK from CVICU. Pt lenny well, dsg remains D+I.
--- NOTE | 2023-09-19 15:06 | PTCARENOTE ---
Large ecchymotic area noted on L side, rib area below axilla. Pt states thats where most of his pain is upon movement. Lidoderm patch applied as ordered.
--- NOTE | 2023-09-19 15:07 | CM ---
CM following for DC planning needs.
Patient transferred to IVU from CVICU.
Noted PT evaluation/ recommendation. Recommendation is for Acute Rehab; patient was an assist x2.
TT to MD requesting PMR evaluation.
Met w/ patient, spouse at bedside. Reviewed recommendation of PT/OT. They were surprised at recommendation and hopeful that patient will improve physically and be able to return home.
We agreed to follow up on Friday.
Goal is for home. Will see how patient progresses over the weekend.
Will follow.
--- NOTE | 2023-09-19 16:42 | W.PN.NEPH.PH ---
Today's Communication / Plan
-
- Cr improved back to baseline?
- follow urine osm and urine Na
Assessment/Plan
-
Assessment:
Hypotension
Multivessel coronary disease
Lactic acidosis
DKA
Diabetes mellitus type 2
Acute kidney injury
Hyperlipidemia
Thrombocytopenia
Hyponatremia
Cardiogenic shock
Plan:
SEGUNDO- possible preanal from hypoperfusion from shock, cr improved at 1.6
UA bland and U na low, check renal US when can for baseline
wean pressors to keep mean arterial pressure greater than 65
Evaluation for eventual cardiac revascularization
non oliguric with baca
off heparin for low plt, HIT Pending
no need of SIMPLEX PRINTER INSTALLER
abx per primary
Na noted to be slightly low, will obtain urine osm and urine Na
labs in am
-
-
Date of Service: September 19, 2023
CC / HPI / ROS
-
Chief Complaint:
SEGUNDO
History of Present Illness:
cr improved at 1.6
off levo now
no fever, on 2lit O2
plt low 89
Review of Systems:
mild chest pain from old CPR
no sob at rest
no dizziness
Labs
-
Labs:
WBC 7.2 10^3/uL (4.8-10.8) 09/19/23 05:22
RBC 3.84 10^6/uL (4.70-6.10) L 09/19/23 05:22
Hgb 10.9 g/dL (13.0-18.0) L 09/19/23 05:22
Hct 31.0 % (39.0-52.0) L 09/19/23 05:22
Plt Count 82 10^3/uL (130-400) L 09/19/23 05:22
Sodium 130 mmol/L (135-145) L 09/19/23 05:22
Potassium 4.8 mmol/L (3.5-5.1) 09/19/23 05:22
Chloride 98 mmol/L (98-107) 09/19/23 05:22
Carbon Dioxide 23 mmol/L (22-30) 09/19/23 05:22
BUN 62 mg/dl (9-20) H 09/19/23 05:22
Creatinine 1.6 mg/dL (0.7-1.3) H 09/19/23 05:22
eGFR 50.26 09/19/23 05:22
Glucose 193 mg/dl (70-99) H 09/19/23 05:22
Calcium 8.2 mg/dl (8.4-10.2) L 09/19/23 05:22
Ziu-T-Pnmkklxiawf Pept 2540 pg/ml 09/16/23 07:46
Albumin 3.0 g/dl (3.5-5.0) L 09/19/23 05:22
Physical Exam
-
Vital Signs:
Vital Signs
Temp Pulse Resp BP Pulse Ox
97.6 F 97 20 125/71 98
09/19/23 15:34 09/19/23 14:00 09/19/23 15:34 09/19/23 12:00 09/19/23 15:34
Cardiovascular:: Regular rate and rhythm
Respiratory:: Bilateral: Coarse
Lung Excursion:: Normal
Abdomen:: Nontender and Soft
Bowel Sounds:: Normal
Extremity Edema:: +2: Bilateral:
Baca Catheter: Yes
[2023-09-19 17:56] LABS: Glucose - Point of Care 226 mg/dl (70-99)
[2023-09-19] MEDS: LIPITOR 40 MG PO (18:20)
[2023-09-19] MEDS: SENOKOT 8.59999999999999964 MG PO (21:07)
[2023-09-19 21:30] LABS: Glucose - Point of Care 253 mg/dl (70-99)
--- NOTE | 2023-09-19 22:10 | PTCARENOTE ---
AOx3. Assessment noted as documented. Tele- SR. HR 80-90s. Pt sating at 97% on 2L O2 NC. Urine specimen obtained. Kaur care completed. C/o L rib pain 08/16. Tylenol administered. R DONIS coffman c/d/i. L groin and R beth ACOSTA. Currently OOB in chair;
call cameron w/in reach.
[2023-09-19 22:18] LABS: Osmolality Urine 514 mOsm/kg (300-900)
[2023-09-19 22:22] LABS: Urine Sodium 24 mmol/L (30-90)
[2023-09-20] VITALS (7 sets, daily range): BP systolic 118–137; BP diastolic 47–73; PULSE 94; O2SAT 98; BMI 35.5
[2023-09-20] MEDS: TYLENOL 650 MG PO ×4 (02:51→20:38)
[2023-09-20] MEDS: XOPENEX 0.63 MG INHALANT SOLUTION 0.630000000000000004 MG INH ×3 (07:24→20:59)
[2023-09-20] MEDS: LOW STRENGTH ASPIRIN 81 MG PO (08:53)
[2023-09-20] MEDS: FARXIGA 10 MG PO (08:53)
[2023-09-20] MEDS: MUCINEX 1200 MG PO ×2 (08:53→20:29)
[2023-09-20 09:00] LABS: Glucose - Point of Care 265 mg/dl (70-99)
[2023-09-20] MEDS: VIBRAMYCIN 100 MG PO ×2 (09:00→20:31)
[2023-09-20] MEDS: LOW STRENGTH ASPIRIN PO (09:01)
[2023-09-20] MEDS: PRANDIN 1 MG PO ×3 (09:01→17:48)
[2023-09-20] MEDS: COLACE 100 MG PO ×2 (09:02→20:29)
[2023-09-20] MEDS: PLAVIX 75 MG PO (09:02)
[2023-09-20] MEDS: MIRALAX 17 GRAMS PO (09:02)
[2023-09-20] MEDS: LIDOCAINE 4% PATCH 1 PATCH TOPICAL (09:04)
[2023-09-20] MEDS: NSS (PRESERVATIVE FREE) 10 ML IV ×2 (09:09→20:38)
[2023-09-20] MEDS: PROTONIX IV 40 MG IV ×2 (09:09→20:32)
[2023-09-20] MEDS: LANTUS 0.599999999999999978 UNITS SC (09:19)
[2023-09-20] MEDS: NOVOLOG FLEXPEN-LOW RESISTANCE 3 UNITS SC (09:20)
[2023-09-20 10:45] LABS: % Basophils 0.4 % (0-2); % Eosinophils 3.3 % (0-6); % Immature Granulocytes 1.6 % (0-0.5); % Lymphocytes 14.1 % (20.5-51.1); % Monocytes 9.7 % (1.7-9.3); % Neutrophils 70.9 % (42.2-75.2); Absolute Eosinophils 0.2 10^3/uL (0-0.7); Absolute Immature Granulocytes 0.1 10^3/uL (0-0.05); Absolute Monocytes 0.7 10^3/uL (0.1-0.6); Absolute Neutrophils 5.2 10^3/uL (1.4-6.5); Hemoglobin 9.9 g/dL (13.0-18.0); Mean Corpuscular Hgb 27.4 pg (27.0-31.0); Mean Corpuscular Volume 83.1 fL (80.0-94.0); Nucleated Red Blood Cells % 0 % (-); Platelet Count 106 10^3/uL (130-400); Red Blood Cell Count 3.61 10^6/uL (4.70-6.10); Red Cell Dist. Width 13.7 % (11.5-14.5); White Blood Cell Count 7.3 10^3/uL (4.8-10.8)
[2023-09-20 11:17] LABS: Blood Urea Nitrogen 54 mg/dl (9-20); Calcium 8.3 mg/dl (8.4-10.2); Carbon Dioxide 23 mmol/L (22-30); Chloride 103 mmol/L (98-107); Estimated Creatinine Clearance 74 ml/min; Glucose 240 mg/dl (70-99); Potassium 4.6 mmol/L (3.5-5.1); Sodium 133 mmol/L (135-145); eGFR 58.99
--- NOTE | 2023-09-20 12:00 | W.PN.ID1 ---
Date of Service
Date of Service: September 20, 2023
Today's Communication
Switched to cefdinir and doxycycline (d#4). Would continue with antibiotics through 09/24/2023.
Monitor white count and temperature curve.
Assessment / Plan
Acute [place]
S/P CPR
Leukocytosis
- improved
Pulmonary infiltrate; PNA versus pneumonitis
Fever
DM
Recommendations:
Switched to cefdinir and doxycycline (d#4). Would continue with antibiotics through 09/24/2023.
Monitor white count and temperature curve.
Chief Complaint
-: Pneumonia
Subjective / Review of Systems
afebrile
bp stable
without leukocytosis
cr further improved
blood cultures no growth to date
no complaints
Vital Signs / Physical Exam
Vital Signs
Vital Signs
Temp Pulse Resp BP Pulse Ox
98.5 F 95 18 121/58 99
09/20/23 11:59 09/20/23 11:59 09/20/23 11:59 09/20/23 06:55 09/20/23 11:59
Physical Exam
Constitutional: No Acute Distress
Cardiovascular: Regular Rate and S1/S2; Negative Murmur or Rub
Pulmonary: Clear and Symmetric; Negative Wheezes or Rales
Gastrointestinal: Soft, Non Tender, Non Distended and Normal Bowel Sounds
Skin: Warm and Dry; Negative Rash or Jaundice
Objective Data
Lab Data
Lab Results
09/20/23 10:37
09/20/23 10:37
PT 15.5 Sec (11.4-14.6) H 09/16/23 07:46
INR 1.25 09/16/23 07:46
APTT 76.9 Sec (23.4-35.0) H 09/17/23 00:19
Estimated Creat Clear 74 ml/min 09/20/23 10:37
Lactic Acid 2.5 mmol/L (0.7-2.0) H 09/16/23 19:53
Total Bilirubin 0.8 mg/dl (0.2-1.3) 09/19/23 05:22
AST 40 U/L (17-59) 09/19/23 05:22
ALT 29 U/L (0-50) 09/19/23 05:22
Alkaline Phosphatase 54 U/L (38-126) 09/19/23 05:22
Most recent labs reviewed.
Micro Results:
09/17/23 08:44 Blood Culture - Preliminary
Blood/Venous No Growth in 72 hours- Final report to follow
09/17/23 08:34 Blood Culture - Preliminary
Blood/Venous No Growth in 72 hours- Final report to follow
09/16/23 12:33 Respiratory Culture - Final
Tracheal Aspirate Usual Respiratory Rachel
Gram Stain - Final
09/16/23 08:51 MRSA Screen - Final
Throat/Pharynx No Methicillin Resistant Staphylococcus aureus isolated.
09/16/23 09:25 Influenza Types A & B (YENNY) - Final
Nasal Swab Negative for Influenza A & B, NAAT
Negative results must be combined with clinical observations
and patient history.
Nucleic Acid Amplification test (NAAT)performed on the
[employer] platform.
Imaging:
09/17/2023 CXR (portable): ET tube has been removed. Tip of the intra-aortic balloon pump is in the proximal descending thoracic aorta. Pulmonary edema has resolved in the interval since the prior study. There is confluent parenchymal density in
the retrocardiac left lung base which may be atelectasis or pneumonia. Please see full dictation for additional detail. Film personally viewed.
[2023-09-20] MEDS: ROCEPHIN IV (12:49)
[2023-09-20] MEDS: STERILE WATER FOR INJECTION IV (12:49)
[2023-09-20] MEDS: OMNICEF 300 MG PO ×2 (12:54→20:30)
[2023-09-20 13:33] LABS: Glucose - Point of Care 311 mg/dl (70-99)
[2023-09-20] MEDS: NOVOLOG FLEXPEN-LOW RESISTANCE 4 UNITS SC (13:33)
--- NOTE | 2023-09-20 13:51 | W.PN.HOSP.TC ---
Today's Communication/Plan
-
Monitor vital sign closely plan
Wean oxygen as tolerated
Continue with antibiotics
Monitor renal function
DVT prophylaxis
Continue to monitor platelets, improving
Will need acute rehab on discharge, PMNR aware
Currently has Kaur catheter, if okay with nephrology then will discontinue. Voiding trial
Assessment / Plan
Assessment / Plan
pt is a 58 year old male
Coronary artery disease status post cardiac arrest with CPR due to myocardial infarction status postcardiac catheterization at [facility] with triple-vessel disease--patient was brought over in cardiogenic shock with intra-aortic balloon
pump--that has all resolved--patient is extubated and intra-aortic balloon pump has been removed--plans for definitive cardiac surgery will be deferred to cardiothoracic surgery--weaned Levophed to off--troponin was 2.7 on admission, peaked to 4.3,
and is now down to 3.8
bob coffman if dont need it per cardiology and CTS
Per CT surgery, patient has poor targets for revascularization, they recommended medical management and follow-up with outpatient programmer numerical control.
Cardiology following
Cardiogenic shock
IABP placed at [facility] and now dc'ed; spoke with CT surgery and cordis DC'd 09/18. Plan now for patient to go to a rehab and then follow-up with cardiology outpatient
Acute hypoxemic respiratory failure with ventilator dependent need for intubation--resolved--patient is extubated and on nasal cannula oxygen--pulmonary following--wean oxygen to off as able, currently on 4 L. Will need home O2 evaluation
L sided moderate sized atelectasis likely mucus plug/hypoventilation
CT chest 09/18 with large left lower lobe consolidation
Type 2 diabetes mellitus with peripheral neuropathy--patient was in diabetic ketoacidosis when he arrived--he was placed on insulin drip and anion gap has been closed--he is transitioned over to the critical care glycemic protocol with the
assistance of the diabetic nurse practitioner--now on Farxiga, Lantus and Prandin
Presumed sepsis with metabolic acidosis--due to possible pneumonia on admission--chest x-ray shows atelectasis or pneumonia in the retrocardiac left lung base (this is where his chest pain is, but pt has multiple rib fractures on left)--this could
have been the trigger for his cardiac arrest and subsequent DKA--appreciate ID input--cultures negative--continue Rocephin and doxycycline --white count 23.7 on admission, now resolved
Continue with cefdinir and doxycycline per infectious disease through 09/24/2023
Thrombocytopenia--possibly from infection, although patient got heparin, HIT panel negative
Hyponatremia
Monitor
Hyperlipidemia--continue rosuvastatin as able
Essential hypertension--patient on ramipril as an outpatient--will restart once kidney function improves
Acute kidney injury presumed--unknown baseline-this could be a combination of hypotension, sepsis, contrast studies from the cardiac cath--apprec renal. Creatinine slowly improving. Currently has Kaur catheter, if okay with nephrology then will
discontinue. Voiding trial
DVT prophylaxis
SCD's; lovenox
CODE STATUS--full code
PT/OT recommending acute rehab; physiatry consulted
General: Well Developed, Well Nourished and No Apparent Distress
HEENT: Normocephalic, Atraumatic and Oxygen
Respiratory: Decreased Breath Sounds
Cardiac: Regular Rhythm and S1/S2; Negative Murmur
GI: Soft, Nontender, Nondistended and Normal Bowel Sounds
Genito-urinary: Kaur
Musculoskeletal: No Clubbing, No Cyanosis and No Edema
Neuro: Awake
I spent a total of 53 minutes with the patient or on the floor. More than 50% of this time involved counseling and coordination of care.
Anticipated Discharge: 24 - 48 hours
Subjective/Interval History
-
Date of Service: September 20, 2023
denies pain
Objective Data
-
Labs:
Laboratory Results
09/20/23
10:37
WBC 7.3
Hgb 9.9 L
Hct 30.0 L
Plt Count 106 L D
Sodium 133 L
Potassium 4.6
Chloride 103
Carbon Dioxide 23
BUN 54 H
Creatinine 1.4 H
Glucose 240 H
Calcium 8.3 L
Vital Signs:
Vital Signs
Temp Pulse Resp BP Pulse Ox
98.5 F 93 18 137/69 99
09/20/23 11:59 09/20/23 12:00 09/20/23 11:59 09/20/23 11:58 09/20/23 11:59
I&O
09/19/23 09/20/23 09/21/23
06:59 06:59 06:59
Intake Total 708.3 / 708.3 480 / 480
Output Total 1260 / 1260 3700 / 3700 1275 / 1275
Balance -551.7 / -551.7 -3220 / -3220 -1275 / -1275
--- NOTE | 2023-09-20 14:01 | W.PN.PUL3 ---
Today's Communication / Plan
-
Continue with airway clearance measures
Antibiotics through 09/23, transition to oral
DC Kaur catheter if okay with nephrology
Follow-up platelets
Follow-up chest x-ray 09/21
Assessment
-
58-year-old male with history of diabetes, recent COVID August 2023 treated with Paxlovid therapy, primary symptom of cough at that time. Patient recovered without any symptoms. Woke up child care nurse 09/15 with shortness of breath, had cardiac arrest
while at [facility] ED requiring CPR/epi/bicarbonate with ROSC, found to have acute anterior UT per EKG at [facility]. Cardiac catheterization revealed multivessel disease, balloon pump placed, transferred to [facility] CVICU 09/16/23
Acute hypoxic respiratory failure
Intubated at [facility] ED 09/12/23
Extubated 09/17/23
In- hospital cardiac arrest ([facility])
Collapsed in triage
CPR, epi, bicarbonate with ROSC
Cardiogenic shock
IABP placed/ at [facility]
Anterior ST elevation UT
Multivessel disease per catheterization 09/16/2023
IABP placed
Hyperglycemia, DKA
Acute renal insufficiency, creatinine 1.6
Hypokalemia/hyperkalemia
Hypertriglyceridemia, 900s
L sided moderate sized atelectasis likely mucus plug/hypoventilation
Conditions present prior to admission
History of diabetes
Poorly controlled, sees nursery teacher
Recent Covid illness August 2023
s/p Paxlovid
Occasional tobacco history
Plan
At this time, patient appears to be comfortable from respiratory standpoint
Still with decreased breath sounds left base
Reviewed importance of incentive spirometry, airway clearance
With this, patient proceeded to expectorate about a tablespoon of yellow mucus
Moving forward
Continue with airway clearance measures
Chest percussion if able to tolerate
Lidocaine patch
Ultrasound without any evidence of fluid
Eventual follow-up chest x-ray
Per discussion with team, catheterization with multivessel disease
Medical treatment for now, cardiology and CT surgery following
Echocardiogram EF 35%, normal PA pressures, aortic sclerosis, normal RV size and function
Seem to be diuresing well
Replete electrolytes as needed
Antibiotics switched to cefdinir and doxycycline, to continue through 09/24/2023
Creatinine increased to 2.1, seems to have plateaued
Kaur catheter in place. Kaur catheter to be discontinued if okay with nephrology
Head of bed elevated, aspiration precautions
GI prophylaxis: Remains on Protonix twice daily
DVT prophylaxis: Heparin drip continues. Mechanical prophylaxis as well follow-up platelets
Reviewed with nursing, patient and at bedside
Diagnostic Data
CXR 09/19/23- Subtotal opacification of the left chest, unchanged, including differential diagnostic possibilities.
CT CHEST 09/19/23- Large left lower lobe consolidation with air bronchograms extending to the left common with accompanying small left pleural effusion compatible with pneumonia. Follow-up imaging to confirm complete resolution recommended. Right
lower lobe subsegmental atelectasis. Coronary artery calcifications.
CHEST US 09/18/23- Small left pleural effusion measuring 1 x 8 x 2.5 cm, with an estimated volume of 10 mL. It appears that most of the opacity on radiographic examination corresponds to parenchymal consolidation.
ECHO 09/17/23- Normal left ventricular size and systolic function. Severe hypokinesis of the distal anteroseptal, distal inferior and apical barrios. LV ejection fraction is 55% by visual assessment. Normal right ventricular size and function. Normal
pericardium without effusion. Compared to previous echo 09/16/23, the LVEF has improved from 35% to 50-55%.
All relevant imaging reviewed.
Subjective Data
-
Date of Service:
Date of Service: September 20, 2023
Chief Complaint: Pulmonary Follow Up
Subjective:
Patient seen and examined earlier this morning. Sitting in chair. at bedside. Still has left-sided pain, splinting with coughing. Denies abdominal pain, nausea. Does not like pain medications that it makes his feel sleepy
Objective Data
Data Reviewed
Vital Signs / I&O / Oxygen:
Vital Signs
Temp Pulse Resp BP Pulse Ox
98.5 F 93 18 137/69 99
09/20/23 11:59 09/20/23 12:00 09/20/23 11:59 09/20/23 11:58 09/20/23 11:59
Intake and Output
09/19/23 09/20/23 09/21/23
06:59 06:59 06:59
Intake Total 708.3 / 708.3 480 / 480
Output Total 1260 / 1260 3700 / 3700 1275 / 1275
Balance -551.7 / -551.7 -3220 / -3220 -1275 / -1275
SaO2 [A/C] 96
SaO2 99
Nasal Cannula flow liters per 2
minute
Physical Exam
General: Comfortable and Other (NAD)
HEENT: Normocephalic, Anicteric, Moist Mucous Membranes and Other (Large neck)
Cardiovascular: S1-S2, Regular Rhythm and Murmur (n)
Respiratory: Clear, Wheeze (n), Crackles (n), Rhonchi (n), Non-Labored Respirations and Other (decreased to absent on L)
GI: Soft, Non Distended (Obese) and Non Tender
Neurology: Awake, Alert and No Motor Deficits (Able to sit up without assistance)
Skin: Jaundice (n) and Rash (n)
Labs/Micro/Reports
Lab Data
09/20/23 10:37
09/20/23 10:37
Microbiology
09/17/23 08:44 Blood/Venous Blood Culture - Preliminary
No Growth in 72 hours- Final report to follow
09/17/23 08:34 Blood/Venous Blood Culture - Preliminary
No Growth in 72 hours- Final report to follow
09/16/23 12:33 Tracheal Aspirate Respiratory Culture - Final
Usual Respiratory Rachel
09/16/23 12:33 Tracheal Aspirate Gram Stain - Final
09/16/23 08:51 Throat/Pharynx MRSA Screen - Final
No Methicillin Resistant Staphylococcus aureus isolated.
--- NOTE | 2023-09-20 15:54 | W.PN.NEPH.PH ---
Today's Communication / Plan
-
- sign off
- okay to d/c phuong and do tov
Assessment/Plan
-
Assessment:
Hypotension
Multivessel coronary disease
Lactic acidosis
DKA
Diabetes mellitus type 2
Acute kidney injury
Hyperlipidemia
Thrombocytopenia
Hyponatremia
Cardiogenic shock
Plan:
SEGUNDO- possible preanal from hypoperfusion from shock, cr improved at 1.4. baseline 1.2 per labs from outpatient in 08/2023
UA bland and U na low, check renal US when can for baseline
Evaluation for eventual cardiac revascularization, likely as outpatient
non oliguric with phuong. okay to d/c Phuong and do TOV
thrombocytopenia, HIT negative
no need of ADDICTION COUNSELOR
abx per primary
Na 133, continue to monitor
trend BMP per primary
Nephrology will sign off
-
-
Date of Service: September 20, 2023
CC / HPI / ROS
-
Chief Complaint:
SEGUNDO
History of Present Illness:
cr improved at 1.4, baselinen 1.4
off levo now
no fever, on 2lit O2
plt low 89
Review of Systems:
mild chest pain from old CPR
no sob at rest
no dizziness
Labs
-
Labs:
WBC 7.3 10^3/uL (4.8-10.8) 09/20/23 10:37
RBC 3.61 10^6/uL (4.70-6.10) L 09/20/23 10:37
Hgb 9.9 g/dL (13.0-18.0) L 09/20/23 10:37
Hct 30.0 % (39.0-52.0) L 09/20/23 10:37
Plt Count 106 10^3/uL (130-400) L D 09/20/23 10:37
Sodium 133 mmol/L (135-145) L 09/20/23 10:37
Potassium 4.6 mmol/L (3.5-5.1) 09/20/23 10:37
Chloride 103 mmol/L (98-107) 09/20/23 10:37
Carbon Dioxide 23 mmol/L (22-30) 09/20/23 10:37
BUN 54 mg/dl (9-20) H 09/20/23 10:37
Creatinine 1.4 mg/dL (0.7-1.3) H 09/20/23 10:37
eGFR 58.99 09/20/23 10:37
Glucose 240 mg/dl (70-99) H 09/20/23 10:37
Calcium 8.3 mg/dl (8.4-10.2) L 09/20/23 10:37
Kth-P-Jdmssgznmkq Pept 2540 pg/ml 09/16/23 07:46
Albumin 3.0 g/dl (3.5-5.0) L 09/19/23 05:22
Physical Exam
-
Vital Signs:
Vital Signs
Temp Pulse Resp BP Pulse Ox
98.5 F 95 16 137/69 95
09/20/23 11:59 09/20/23 14:00 09/20/23 14:00 09/20/23 11:58 09/20/23 14:00
Cardiovascular:: Regular rate and rhythm
Respiratory:: Bilateral: Coarse
Lung Excursion:: Normal
Abdomen:: Distended, Nontender and Soft
Bowel Sounds:: Normal
Extremity Edema:: None: Bilateral:
Kaur Catheter: Yes
--- NOTE | 2023-09-20 16:33 | PTCARENOTE ---
Pt ambulated 200 ft with walker on O2 at 2L/min. Kareen well, denied SOB. O2 sat 98% on 2L
--- NOTE | 2023-09-20 16:54 | PTCARENOTE ---
Pt walked again this afternoon with PT, this time he walked 400 ft, on RA, with walker. He lenny very well, O2 sat 93-95% on RA with ambulation. Pt remains on RA this afternoon. O2 sat currently 97% on RA at rest.
--- NOTE | 2023-09-20 17:32 | PTCARENOTE ---
Kaur cath draining clear yellow urine, d/c'd as per order without incident. Pt lenny well.
[2023-09-20] MEDS: LIPITOR 40 MG PO (17:48)
[2023-09-20 17:53] LABS: Glucose - Point of Care 174 mg/dl (70-99)
[2023-09-20] MEDS: NOVOLOG FLEXPEN-LOW RESISTANCE 1 UNITS SC (18:22)
[2023-09-20] MEDS: LOVENOX 40 MG SC (18:23)
[2023-09-20] MEDS: SENOKOT 8.59999999999999964 MG PO (20:31)
[2023-09-20] MEDS: FLUSH (NSS) 2 FLUSH IV (20:32)
[2023-09-20 21:19] LABS: Glucose - Point of Care 184 mg/dl (70-99)
[2023-09-20] MEDS: ROXICODONE 5 MG PO (23:30)
[2023-09-21 04:33] VITALS: BP 123/68
[2023-09-21 05:19] VITALS: BMI 35.0
[2023-09-21] MEDS: TYLENOL 650 MG PO ×4 (05:23→20:19)
--- NOTE | 2023-09-21 05:35 | PTCARENOTE ---
Patient OOB to chair this am. Ambulated to bathroom a x1. Voiding in urinal adequate amounts. See Emar for pain management of left rib pain. NSR on tele. HRR, breath sounds are decreased throughout. at bedside through the night.
[2023-09-21 05:40] LABS: % Basophils 0.5 % (0-2); % Eosinophils 4.8 % (0-6); % Immature Granulocytes 3.2 % (0-0.5); % Lymphocytes 21.5 % (20.5-51.1); % Monocytes 10.6 % (1.7-9.3); % Neutrophils 59.4 % (42.2-75.2); Absolute Eosinophils 0.4 10^3/uL (0-0.7); Absolute Immature Granulocytes 0.3 10^3/uL (0-0.05); Absolute Lymphocytes 1.7 10^3/uL (1.2-3.4); Absolute Monocytes 0.8 10^3/uL (0.1-0.6); Absolute Neutrophils 4.6 10^3/uL (1.4-6.5); Hematocrit 28.6 % (39.0-52.0); Hemoglobin 9.6 g/dL (13.0-18.0); Mean Corp Hgb Conc. 33.6 g/dL (33.0-37.0); Mean Corpuscular Hgb 28.2 pg (27.0-31.0); Mean Corpuscular Volume 83.9 fL (80.0-94.0); Mean Platelet Volume 9.6 fL (7.4-10.4); Nucleated Red Blood Cells % 0.3 % (-); Platelet Count 138 10^3/uL (130-400); Red Blood Cell Count 3.41 10^6/uL (4.70-6.10); Red Cell Dist. Width 13.9 % (11.5-14.5); White Blood Cell Count 7.8 10^3/uL (4.8-10.8)
[2023-09-21 06:04] LABS: Blood Urea Nitrogen 51 mg/dl (9-20); Calcium 8.3 mg/dl (8.4-10.2); Carbon Dioxide 24 mmol/L (22-30); Chloride 105 mmol/L (98-107); Estimated Creatinine Clearance 73 ml/min; Glucose 128 mg/dl (70-99); Potassium 4.4 mmol/L (3.5-5.1); Sodium 135 mmol/L (135-145); eGFR 58.99
[2023-09-21] MEDS: XOPENEX 0.63 MG INHALANT SOLUTION 0.630000000000000004 MG INH ×3 (07:43→19:27)
[2023-09-21 08:07] VITALS: BP 116/55
[2023-09-21 08:12] LABS: Glucose - Point of Care 147 mg/dl (70-99)
[2023-09-21] MEDS: FARXIGA 10 MG PO (08:32)
[2023-09-21] MEDS: NOVOLOG FLEXPEN-LOW RESISTANCE SC (08:32)
[2023-09-21] MEDS: VIBRAMYCIN 100 MG PO ×2 (08:33→20:20)
[2023-09-21] MEDS: PLAVIX 75 MG PO (08:34)
[2023-09-21] MEDS: OMNICEF 300 MG PO ×2 (08:34→20:20)
[2023-09-21] MEDS: MUCINEX 1200 MG PO ×2 (08:34→20:20)
[2023-09-21] MEDS: COLACE 100 MG PO ×2 (08:35→20:20)
[2023-09-21] MEDS: MIRALAX 17 GRAMS PO (08:35)
[2023-09-21] MEDS: PRANDIN 1 MG PO ×3 (08:35→17:34)
[2023-09-21] MEDS: LANTUS 0.630000000000000004 UNITS SC (08:36)
[2023-09-21] MEDS: LOW STRENGTH ASPIRIN 81 MG PO (08:38)
[2023-09-21] MEDS: LIDOCAINE 4% PATCH 1 PATCH TOPICAL (08:39)
[2023-09-21] MEDS: PROTONIX IV 40 MG IV (08:40)
[2023-09-21] MEDS: NSS (PRESERVATIVE FREE) 10 ML IV (08:40)
--- NOTE | 2023-09-21 10:21 | W.PN.CARDCBS ---
Today's Communication / Plan
-
Auto diuresing
Medical management of CAD
DAPT therapy
Platelets improving
Outpatient follow-up with Dr. Patino at [facility]
To discuss with patient and to consider outpatient cardiac monitoring for rhythm
He has had no ventricular arrhythmias on telemetry
Impression / Plan
-
PCP: Dr. Espinoza Bray
Cardiology: None prior to admission, seen by Dr. Ankush hernandez and Dr. Patino at [facility] prior to transfer
Impression:
Presented to [facility] with SOB 09/16/23 early AM
Acute hypoxic respiratory failure
intubated at [facility] 09/16/23, extubated early 09/17/23
In-hospital cardiac arrest at [facility] 09/16/23
collapsed in triage at [facility], ROSC after CPR, Epi and bicarb
Cardiogenic shock s/p IABP 09/16/23
Anterior STEMI and CAD by cath at [facility] 09/16/23
initial Troponin at was 2.7 09/16/23
Hypokalemia at [facility] then hyperkalemia at
Hyperglycemia with h/o DM 2
Hyperlipidemia
SEGUNDO
DM 2
DKA
Echo 09/16/2023: EF 35-40%, inferior, inferoseptal and septal hypokinesis, mild conc LVH, trace MR
Echo 09/17/2023: EF 55%, severe hypokinesis of the distal anteroseptal, distal inferior, and apical barrios
Plan:
-Transferred to from [facility] in the setting of cardiac arrest and CAD.
-Cath films from [facility] were reviewed by interventional cardiology and CT surgery. No plans currently for revascularization
-Continue medical management. Continue aspirin and plavix for now, although follow platelet count closely. His platelets are improving
-No complaints of chest pain, does note some rib soreness from CPR which is limiting ability to take deep breaths and cough.
-CT chest noted large L lower lobe consolidation consistent w/ pneumonia. Continue abx per ID.
-BPs improving, weaned off levo. Would consider starting low dose BB today pending BP trends.
-No documentation of malignant arrhythmia as cause of cardiac arrest. At this point does not require ICD implantation, however would consider further monitoring as OP.
-Creatinine improving and nephrology following
-Continue lipitor 40mg daily. LDL 63
-On 2L NC. Wean as able.
-PT/OT, encouraged IS
-Appears to be nearing discharge and he will follow-up as an outpatient with Dr. Patino at [place] [facility]
HPI: Patient came to as a transfer from [facility] in the setting of cardiac arrest and CAD, cardiology has been consulted. Patient walked into [facility] ER around 0400 this AM complaining of SOB. His drive him to the hospital. He was able to tell the
aircraft detail draftsperson that he was SOB and then collapsed. He was pulseless. Patient was intubated in [facility] ER. He had chest compressions, Epi x1 and bicarb x1, asystole on tele followed by sinus tachycardia. ECG post-ROSC with anterior ST elevation prompting
STEMI alert. Patient was cath'd by covering defence force member other ranks at [facility] and there was evidence of CAD and cardiogenic shock. IABP was placed and patient was sent to . Called his PCP to get records and await their arrival.
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
Subjective
Date of Service: September 21, 2023
Improving
Objective
Labs:
09/21/23 04:38
09/21/23 04:38
Labs
Hgb 9.6 g/dL (13.0-18.0) L 09/21/23 04:38
Hct 28.6 % (39.0-52.0) L 09/21/23 04:38
Plt Count 138 10^3/uL (130-400) D 09/21/23 04:38
PT 15.5 Sec (11.4-14.6) H 09/16/23 07:46
INR 1.25 09/16/23 07:46
APTT 76.9 Sec (23.4-35.0) H 09/17/23 00:19
Sodium 135 mmol/L (135-145) 09/21/23 04:38
Potassium 4.4 mmol/L (3.5-5.1) 09/21/23 04:38
BUN 51 mg/dl (9-20) H 09/21/23 04:38
Creatinine 1.4 mg/dL (0.7-1.3) H 09/21/23 04:38
Glucose 128 mg/dl (70-99) H 09/21/23 04:38
Vital Signs and I&O:
Vital Signs
Temp Pulse Resp BP Pulse Ox
98.5 F 86 20 123/68 93
09/21/23 08:05 09/21/23 07:47 09/21/23 08:05 09/21/23 04:33 09/21/23 08:05
Vital Signs
Temp Pulse Resp BP Pulse Ox
98.5 F 86 20 123/68 93
09/21/23 08:05 09/21/23 07:47 09/21/23 08:05 09/21/23 04:33 09/21/23 08:05
Intake & Output
09/19/23 09/20/23 09/21/23 09/22/23
06:59 06:59 06:59 06:59
Intake Total 708.3 / 708.3 480 / 480 480 / 480
Output Total 1260 / 1260 3700 / 3700 3900 / 3900
Balance -551.7 / -551.7 -3220 / -3220 -3420 / -3420
Physical Exam
Physical Exam
Physical Exam
General: no apparent distress, not acutely ill
Neck: supple. no meningeal signs. normal psoterior pharynx
Heart: s1/s2 regular rate and rhythm, no murmur. equal radial pulses.
Lungs: no acute respiratory distress. clear bilaterally
Abdomen: normal bowel sounds. not tender. no CVAT
Neuro: alert and oriented. no focal neurological deficits
Skin: no rash
Psychiatric: well kept. interactive and cooperative
Extremities: no edema. no calf tenderness. negative homans. good distal pulses
[2023-09-21 11:10] VITALS: BP 126/57
--- NOTE | 2023-09-21 12:45 | W.PN.HOSP.TC ---
Today's Communication/Plan
-
Monitor vital signs and see plan
Monitor urine output
home o2 eval
cw abx
cw DAPT
pt/ot
Assessment / Plan
Assessment / Plan
pt is a 58 year old male
Coronary artery disease status post cardiac arrest with CPR due to myocardial infarction status postcardiac catheterization at [facility] with triple-vessel disease--patient was brought over in cardiogenic shock with intra-aortic balloon
pump--that has all resolved--patient is extubated and intra-aortic balloon pump has been removed--plans for definitive cardiac surgery will be deferred to cardiothoracic surgery--weaned Levophed to off--troponin was 2.7 on admission, peaked to 4.3,
and is now down to 3.8
dc cordis if dont need it per cardiology and CTS
Per CT surgery, patient has poor targets for revascularization, they recommended medical management and follow-up with outpatient textile machinery sales representative.
Cardiology following
Cardiogenic shock
IABP placed at [facility] and now dc'ed; spoke with CT surgery and cordis DC'd 09/18. Plan now for patient to go to a rehab or home and then follow-up with cardiology outpatient;Outpatient follow-up with Dr. Patino at [facility] cardiology
Acute hypoxemic respiratory failure with ventilator dependent need for intubation--resolved--patient is extubated and on nasal cannula oxygen--pulmonary following--wean oxygen to off as able, dc'ed o2 now. Will need home O2 evaluation. Discussed
with pulmonary
L sided moderate sized atelectasis likely mucus plug/hypoventilation
CT chest 09/18 with large left lower lobe consolidation
Type 2 diabetes mellitus with peripheral neuropathy--patient was in diabetic ketoacidosis when he arrived--he was placed on insulin drip and anion gap has been closed--he is transitioned over to the critical care glycemic protocol with the
assistance of the diabetic nurse practitioner--now on Farxiga, Lantus and Prandin
Presumed sepsis with metabolic acidosis--due to possible pneumonia on admission--chest x-ray shows atelectasis or pneumonia in the retrocardiac left lung base (this is where his chest pain is, but pt has multiple rib fractures on left)--this could
have been the trigger for his cardiac arrest and subsequent DKA--appreciate ID input--cultures negative--continue Rocephin and doxycycline --white count 23.7 on admission, now resolved
Continue with cefdinir and doxycycline per infectious disease through 09/24/2023
Thrombocytopenia--possibly from infection, although patient got heparin, HIT panel negative
Hyponatremia
resolved
Hyperlipidemia
Essential hypertension--patient on ramipril as an outpatient--will restart once kidney function improves
Acute kidney injury presumed--does appear to have some CKD; appears cr was 1.2 in august-now slowly improving. Nephrology following
Kaur catheter DC'd, voiding
DVT prophylaxis
SCD's; lovenox
CODE STATUS--full code
PT/OT recommending acute rehab; physiatry consulted. appears to be improving; patient wants to see how he does tomorrow and then will decide if he wants to go to rehab or home
General: Well Developed, Well Nourished and No Apparent Distress
HEENT: Normocephalic, Atraumatic and Oxygen
Respiratory: Decreased Breath Sounds
Cardiac: Regular Rhythm and S1/S2; Negative Murmur
GI: Soft, Nontender, Nondistended and Normal Bowel Sounds
Genito-urinary: Kaur
Musculoskeletal: No Clubbing, No Cyanosis and No Edema
Neuro: Awake
Anticipated Discharge: 24 - 48 hours
Subjective/Interval History
-
Date of Service: September 21, 2023
Still has some pain
Objective Data
-
Labs:
Laboratory Results
09/21/23
04:38
WBC 7.8
Hgb 9.6 L
Hct 28.6 L
Plt Count 138 D
Sodium 135
Potassium 4.4
Chloride 105
Carbon Dioxide 24
BUN 51 H
Creatinine 1.4 H
Glucose 128 H
Calcium 8.3 L
Vital Signs:
Vital Signs
Temp Pulse Resp BP Pulse Ox
98.5 F 91 20 126/57 96
09/21/23 11:08 09/21/23 11:10 09/21/23 11:08 09/21/23 11:10 09/21/23 11:08
I&O
09/20/23 09/21/23 09/22/23
06:59 06:59 06:59
Intake Total 480 / 480 480 / 480
Output Total 3700 / 3700 3900 / 3900
Balance -3220 / -3220 -3420 / -3420
[2023-09-21 12:49] LABS: Glucose - Point of Care 181 mg/dl (70-99)
[2023-09-21] MEDS: NOVOLOG FLEXPEN-LOW RESISTANCE 1 UNITS SC (13:18)
--- NOTE | 2023-09-21 14:14 | W.PN.PUL3 ---
Today's Communication / Plan
-
Continue antibiotics
Out of bed to chair, ambulate
Airway clearance measures
Chest x-ray in 4 to 6 weeks with pulmonary follow-up
Outpatient sleep apnea workup
Disposition efforts
Assessment
-
58-year-old male with history of diabetes, recent COVID August 2023 treated with Paxlovid therapy, primary symptom of cough at that time. Patient recovered without any symptoms. 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
while at [facility] ED requiring CPR/epi/bicarbonate with ROSC, found to have acute anterior MN per EKG at [facility]. Cardiac catheterization revealed multivessel disease, balloon pump placed, transferred to [facility] CVICU 09/16/23
Acute hypoxic respiratory failure
Intubated at [facility] ED 09/12/23
Extubated 09/17/23
In- hospital cardiac arrest ([facility])
Collapsed in triage
CPR, epi, bicarbonate with ROSC
Cardiogenic shock
IABP placed/ at [facility]
Anterior ST elevation MN
Multivessel disease per catheterization 09/16/2023
IABP placed
Hyperglycemia, DKA
Acute renal insufficiency, creatinine 1.6
Hypokalemia/hyperkalemia
Hypertriglyceridemia, 900s
L sided moderate sized atelectasis likely mucus plug/hypoventilation
Conditions present prior to admission
History of diabetes
Poorly controlled, sees law enforcement officer
Recent Covid illness August 2023
s/p Paxlovid
Occasional tobacco history
Plan
At this time, patient appears to be comfortable from respiratory standpoint
Chest exam has improved
Chest x-ray today with improved left pleuroparenchymal process
Reviewed importance of incentive spirometry, airway clearance
Denies hemoptysis
Moving forward
Continue with airway clearance measures
Chest percussion if able to tolerate
Lidocaine patch
Ultrasound without any evidence of fluid
Chest x-ray with continued improvement
Would recommend follow-up chest x-ray in 4 to 6 weeks
Per discussion with team, catheterization with multivessel disease
Poor targets for a surgical approach. CT surgery has signed off
Medical treatment for now, cardiology following
Echocardiogram EF 35%, normal PA pressures, aortic sclerosis, normal RV size and function
Seem to be diuresing well
Replete electrolytes as needed
Antibiotics switched to cefdinir and doxycycline, to continue through 09/24/2023
Creatinine increased to 2.1, now improved to 1.4
Nephrology following
Head of bed elevated, aspiration precautions
GI prophylaxis: Remains on Protonix twice daily
DVT prophylaxis: Heparin drip continues. Mechanical prophylaxis as well follow-up platelets
Reviewed suspicion for sleep disordered breathing
Given medical management plans for coronary disease, would strongly recommend outpatient pulmonary follow-up/sleep apnea workup
Information left in chart
Reviewed with patient and at bedside
Disposition efforts
Diagnostic Data
CXR 09/19/23- Subtotal opacification of the left chest, unchanged, including differential diagnostic possibilities.
CT CHEST 09/19/23- Large left lower lobe consolidation with air bronchograms extending to the left common with accompanying small left pleural effusion compatible with pneumonia. Follow-up imaging to confirm complete resolution recommended. Right
lower lobe subsegmental atelectasis. Coronary artery calcifications.
CHEST US 09/18/23- Small left pleural effusion measuring 1 x 8 x 2.5 cm, with an estimated volume of 10 mL. It appears that most of the opacity on radiographic examination corresponds to parenchymal consolidation.
ECHO 09/17/23- Normal left ventricular size and systolic function. Severe hypokinesis of the distal anteroseptal, distal inferior and apical barrios. LV ejection fraction is 55% by visual assessment. Normal right ventricular size and function. Normal
pericardium without effusion. Compared to previous echo 09/16/23, the LVEF has improved from 35% to 50-55%.
All relevant imaging reviewed.
Subjective Data
-
Date of Service:
Date of Service: September 21, 2023
Chief Complaint: Pulmonary Follow Up
Subjective:
Patient continues to improve. Responding nicely to the airway clearance measures, denies hemoptysis. Denies chest pain, nausea, abdominal pain.
Objective Data
Data Reviewed
Vital Signs / I&O / Oxygen:
Vital Signs
Temp Pulse Resp BP Pulse Ox
98.5 F 90 20 126/57 96
09/21/23 11:08 09/21/23 14:00 09/21/23 11:08 09/21/23 11:10 09/21/23 11:08
Intake and Output
09/20/23 09/21/23 09/22/23
06:59 06:59 06:59
Intake Total 480 / 480 480 / 480
Output Total 3700 / 3700 3900 / 3900
Balance -3220 / -3220 -3420 / -3420
SaO2 [A/C] 96
SaO2 96
Nasal Cannula flow liters per 2
minute
Physical Exam
General: Comfortable and Other (NAD)
HEENT: Normocephalic, Anicteric, Moist Mucous Membranes and Other (Large neck)
Cardiovascular: S1-S2, Regular Rhythm and Murmur (n)
Respiratory: Clear, Wheeze (n), Crackles (n), Rhonchi (n), Non-Labored Respirations and Other (decreased to absent on L)
GI: Soft, Non Distended (Obese) and Non Tender
Neurology: Awake, Alert and No Motor Deficits (Able to sit up without assistance)
Skin: Jaundice (n) and Rash (n)
Labs/Micro/Reports
Lab Data
09/21/23 04:38
09/21/23 04:38
Microbiology
09/17/23 08:44 Blood/Venous Blood Culture - Preliminary
No Growth in 4 days- Final report to follow
09/17/23 08:34 Blood/Venous Blood Culture - Preliminary
No Growth in 4 days- Final report to follow
[2023-09-21 14:57] VITALS: BP 112/58
--- NOTE | 2023-09-21 15:46 | PTCARENOTE ---
Pt ambulated in [place] today with rolling walker and supervision. He walked down to the lounge and back, lenny well and on room air.
[2023-09-21] MEDS: LIPITOR 40 MG PO (17:34)
[2023-09-21] MEDS: LOVENOX 40 MG SC (17:35)
[2023-09-21 17:47] LABS: Glucose - Point of Care 217 mg/dl (70-99)
[2023-09-21] MEDS: NOVOLOG FLEXPEN-LOW RESISTANCE 2 UNITS SC (18:33)
--- NOTE | 2023-09-21 19:30 | RESPNOTE ---
Pt refused HS CPAP for tonight.
[2023-09-21 20:17] VITALS: BP 129/71
[2023-09-21] MEDS: PROTONIX 40 MG PO (20:20)
[2023-09-21 21:43] LABS: Glucose - Point of Care 204 mg/dl (70-99)
[2023-09-21] MEDS: SENOKOT 8.59999999999999964 MG PO (21:43)
--- NOTE | 2023-09-21 21:52 | PTCARENOTE ---
Pt ambulatory in hallway w/ rolling walker; able to walk down to lounge area back to room. Pt sating on RA at 93%. Pt voiding approp. C/o L rib pain 08/16. Tylenol administered. at bedside. Call nisha w/in reach.
[2023-09-21 22:59] VITALS: BP 113/64
[2023-09-21] MEDS: ROXICODONE 5 MG PO (23:00)
[2023-09-22 04:15] VITALS: BP 120/56
[2023-09-22 04:17] VITALS: BMI 35.0
[2023-09-22] MEDS: TYLENOL 650 MG PO ×2 (04:26→11:56)
[2023-09-22 04:58] LABS: Hematocrit 30.2 % (39.0-52.0); Hemoglobin 10.2 g/dL (13.0-18.0); Mean Corp Hgb Conc. 33.8 g/dL (33.0-37.0); Mean Corpuscular Hgb 28.3 pg (27.0-31.0); Mean Corpuscular Volume 83.9 fL (80.0-94.0); Mean Platelet Volume 9.3 fL (7.4-10.4); Platelet Count 185 10^3/uL (130-400); Red Cell Dist. Width 14.2 % (11.5-14.5); White Blood Cell Count 8.8 10^3/uL (4.8-10.8)
[2023-09-22 05:28] LABS: Blood Urea Nitrogen 42 mg/dl (9-20); Calcium 8.6 mg/dl (8.4-10.2); Carbon Dioxide 25 mmol/L (22-30); Chloride 104 mmol/L (98-107); Estimated Creatinine Clearance 79 ml/min; Glucose 149 mg/dl (70-99); Potassium 4.8 mmol/L (3.5-5.1); Sodium 136 mmol/L (135-145); eGFR > 60.00
[2023-09-22 06:32] LABS: Absolute Neutrophils -Man Diff 6.2 10^3/uL (1.4-6.5); Band Neutrophils 5 % (0-3); Eosinophils 4 % (0-6); Lymphocytes 20 % (20-51); Metamyelocytes 1 % (-); Monocytes 2 % (2-9); Myelocytes 2 % (-); Segmented Neutrophils 66 % (42-75)
[2023-09-22 06:33] LABS: Normal RBC Morphology No; Platelets Checked Yes
[2023-09-22 06:34] LABS: Anisocytosis Slight; Macrocytosis Slight
[2023-09-22 06:35] LABS: Polychromasia Slight; Total Cells Counted 100
[2023-09-22] MEDS: XOPENEX 0.63 MG INHALANT SOLUTION 0.630000000000000004 MG INH (07:21)
--- NOTE | 2023-09-22 07:22 | W.PN.HOSP.TC ---
Today's Communication/Plan
-
Plan will be for discharge today after being seen by cardiology and pulmonary make sure that no other reservations
Continue another 2 days of cefdinir and doxycycline
Medical therapy to proceed and follow-up with Dr. Patino
Continue to encourage incentive and Acapella usage
Chest x-ray reviewed
Assessment / Plan
Assessment / Plan
pt is a 58 year old male
Coronary artery disease status post cardiac arrest with CPR due to myocardial infarction status postcardiac catheterization at [facility] with triple-vessel disease--patient was brought over in cardiogenic shock with intra-aortic balloon
pump--that has all resolved--patient is extubated and intra-aortic balloon pump has been removed--plans for definitive cardiac surgery will be deferred to cardiothoracic surgery--weaned Levophed to off--troponin was 2.7 on admission, peaked to 4.3,
and is now down to 3.8
dc cordis if dont need it per cardiology and CTS
Per CT surgery, patient has poor targets for revascularization, they recommended medical management and follow-up with outpatient power barker operator.
Cardiology following
Cardiogenic shock
IABP placed at [facility] and now dc'ed; spoke with CT surgery and cordis DC'd 09/18. Plan now for patient to go to a rehab or home and then follow-up with cardiology outpatient;Outpatient follow-up with Dr. Patino at [facility] cardiology
Acute hypoxemic respiratory failure with ventilator dependent need for intubation--resolved--patient is extubated and on nasal cannula oxygen--pulmonary following--wean oxygen to off as able, dc'ed o2 now. Will need home O2 evaluation. Discussed
with pulmonary
L sided moderate sized atelectasis likely mucus plug/hypoventilation
CT chest 09/18 with large left lower lobe consolidation/repeat chest x-ray reviewed this morning September 21 shows improving left pleural effusion and infiltrate
Type 2 diabetes mellitus with peripheral neuropathy--patient was in diabetic ketoacidosis when he arrived--he was placed on insulin drip and anion gap has been closed--he is transitioned over to the critical care glycemic protocol with the
assistance of the diabetic nurse practitioner--now on Farxiga, Lantus and Prandin
Presumed sepsis with metabolic acidosis--due to possible pneumonia on admission--chest x-ray shows atelectasis or pneumonia in the retrocardiac left lung base (this is where his chest pain is, but pt has multiple rib fractures on left)--this could
have been the trigger for his cardiac arrest and subsequent DKA--appreciate ID input--cultures negative--continue Rocephin and doxycycline --white count 23.7 on admission, now resolved
Continue with cefdinir and doxycycline per infectious disease through 09/24/2023
Thrombocytopenia--possibly from infection, although patient got heparin, HIT panel negative
Hyponatremia
resolved
Hyperlipidemia
Essential hypertension--patient on ramipril as an outpatient--will restart once kidney function improves
Acute kidney injury presumed--does appear to have some CKD; appears cr was 1.2 in august-now slowly improving. Nephrology following
Kaur catheter DC'd, voiding
DVT prophylaxis
SCD's; lovenox
CODE STATUS--full code
PT/OT recommending acute rehab; physiatry consulted. appears to be improving; patient wants to see how he does tomorrow and then will decide if he wants to go to rehab or home
General: Well Developed, Well Nourished and No Apparent Distress
HEENT: Normocephalic, Atraumatic and Oxygen
Respiratory: Decreased Breath Sounds
Cardiac: Regular Rhythm and S1/S2; Negative Murmur
GI: Soft, Nontender, Nondistended and Normal Bowel Sounds
Genito-urinary: Kaur
Musculoskeletal: No Clubbing, No Cyanosis and No Edema
Neuro: Awake
Anticipated Discharge: Today (Patient really wants to go home without most VNA at this point using walker)
Subjective/Interval History
-
Date of Service: September 22, 2023
Patient is ambulating with the help of a walker in the hallway this morning very early and asking to go home he did have a chest x-ray earlier this morning.
Objective Data
-
Labs:
Laboratory Results
09/22/23
04:23
WBC 8.8
Hgb 10.2 L
Hct 30.2 L
Plt Count 185 D
Sodium 136
Potassium 4.8
Chloride 104
Carbon Dioxide 25
BUN 42 H
Creatinine 1.3
Glucose 149 H
Calcium 8.6
Vital Signs:
Vital Signs
Temp Pulse Resp BP Pulse Ox
98.4 F 90 16 120/56 96
09/22/23 04:17 09/22/23 04:15 09/22/23 04:17 09/22/23 04:15 09/22/23 04:17
I&O
09/21/23 09/22/23 09/23/23
06:59 06:59 06:59
Intake Total 480 / 480 240 / 240
Output Total 3900 / 3900 2500 / 2500
Balance -3420 / -3420 -2260 / -2260
Review of Systems
-
Unable to obtain full review of systems at this time due to: Dementia
History Source: Patient
All other systems: Reviewed and negative
Respiratory: Reports Cough and Pleurisy
Abdomen/GI: Reports No Symptoms
Genitourinary: Reports No Symptoms and Other (Voiding without difficulty Kaur out)
Physical Exam
-
General: Well Developed
HEENT: Normocephalic
Respiratory: Decreased Breath Sounds (Base left side)
Cardiac: Regular Rhythm
Breast: Skin Changes (Large ecchymosis left flank)
GI: Soft and Nontender
Skin: Warm
Neuro: Awake, Alert and Oriented
Psych: Calm
Data Reviewed
-
Total Time Spent with Patient (in minutes): 56
Labs: Labs Reviewed by me (Blood sugars improved)
[2023-09-22 07:36] LABS: Glucose - Point of Care 141 mg/dl (70-99)
[2023-09-22 07:37] VITALS: BP 118/61
[2023-09-22] MEDS: OMNICEF 300 MG PO (07:38)
[2023-09-22] MEDS: NOVOLOG FLEXPEN-LOW RESISTANCE SC (07:38)
[2023-09-22] MEDS: VIBRAMYCIN 100 MG PO (07:38)
[2023-09-22] MEDS: LOW STRENGTH ASPIRIN 81 MG PO (07:38)
[2023-09-22] MEDS: COLACE 100 MG PO (07:38)
[2023-09-22] MEDS: PRANDIN 1 MG PO ×2 (07:38→11:56)
[2023-09-22] MEDS: MUCINEX 1200 MG PO (07:38)
[2023-09-22] MEDS: PLAVIX 75 MG PO (07:39)
[2023-09-22] MEDS: PROTONIX 40 MG PO (07:39)
[2023-09-22] MEDS: FARXIGA 10 MG PO (07:39)
[2023-09-22] MEDS: MIRALAX 17 GRAMS PO (07:39)
[2023-09-22] MEDS: LIDOCAINE 4% PATCH 1 PATCH TOPICAL (07:39)
[2023-09-22] MEDS: LANTUS 0.630000000000000004 UNITS SC (07:39)
--- NOTE | 2023-09-22 08:55 | W.PN.CARDCBS ---
Addendum entered and electronically signed by Ronak Luis MD 09/22/23 13:23:
Difficult to know with certainty the inciting factors related to his apparent respiratory arrest. It is possible he may have primarily become hypoxic then developed cardiac ischemia finally developing asystolic arrest. It is also possible that
initial cardiac ischemia could have played an inciting role followed by pulmonary edema and hypoxia. Within all this he also appears to be in DKA.
There is no documentation of any tachyarrhythmias, no VT no VF. After initial treatment of his hypoxic arrest there have been no further asystole or significant bradycardia.
Interventional cardiology and cardiothoracic surgery evaluation recommends medical management of diffuse diabetic coronary artery disease.
Echocardiogram initially with segmental LV dysfunction improving the following day still with segmental LV dysfunction but improved overall LVEF.
There is currently no indication for cardiac implanted electronic device (pacemaker or ICD) implantation.
LVEF assessment/echocardiogram from today is pending but is unlikely to change recommendation that there is no indication at present for CIED.
Recommendation is to continue medical therapy for his underlying coronary artery disease, myocardial infarction, heart failure, pneumonia, diabetes.
Cont BB, start low dose JOSESITO-I.
Cont SGLT2 inhibitor.
Cont asa, clopidogrel, and statin.
Follow-up is being arranged with Dr Patino.
Original Note:
Today's Communication / Plan
-
Start Toprol XL 25 mg daily
Recheck echo for baseline EF off of IABP and Levophed prior to discharge
Impression / Plan
-
PCP: Dr. Espinoza Bray
Cardiology: None prior to admission, seen by Dr. Ankush hernandez and Dr. Paitno at [facility] prior to transfer
Impression:
Presented to [facility] with SOB 09/16/23 early AM
Acute hypoxic respiratory failure
intubated at [facility] 09/16/23, extubated early 09/17/23
In-hospital cardiac arrest at [facility] 09/16/23
collapsed in triage at [facility], ROSC after CPR, Epi and bicarb
Cardiogenic shock s/p IABP 09/16/23
Anterior STEMI and CAD by cath at [facility] 09/16/23
initial Troponin at was 2.7 09/16/23
Hypokalemia at [facility] then hyperkalemia at
Hyperglycemia with h/o DM 2
Hyperlipidemia
SEGUNDO
DM 2
DKA
Echo 09/16/2023: EF 35-40%, inferior, inferoseptal and septal hypokinesis, mild conc LVH, trace MR
Echo 09/17/2023: EF 55%, severe hypokinesis of the distal anteroseptal, distal inferior, and apical barrios
Echo 09/22/23: Study pending
Plan:
-Talked with patient in room and then called and talked with his by phone for 18:40 min 09/22/23 AM. Reviewed course of events at [facility], seems most likely that patient presented with flash pulmonary edema in the setting of ischemic event and then
had asystole and respiratory failure. STEMI on post-ROSC ECG and then diffuse diabetic multivessel CAD on cath. PNA likely the result of all of the above.
-No documentation of malignant arrhythmia as cause of cardiac arrest. At this point does not require ICD implantation. Will focus on medical therapy of CAD and possible ICM.
-Cath films from [facility] were reviewed by interventional cardiology and CT surgery. No plans currently for revascularization. Cont aspirin and Plavix.
-Check echo f/u study now to recheck EF now that IABP is out and Levophed is off.
-Start Toprol XL 25 mg daily 09/22/23.
-Ongoing IS use for atelectasis in the setting of rib pain after CPR
-Patient was taking Crestor prior to admission and is now ordered atorvastatin 40 mg daily
-Will send patient home with paper records and also cc'ing this note to his PCP and Dr. Patino.
HPI: Patient came to as a transfer from [facility] in the setting of cardiac arrest and CAD, cardiology has been consulted. Patient walked into [facility] ER around 0400 this AM complaining of SOB. His drive him to the hospital. He was able to tell the
hand spinner that he was SOB and then collapsed. He was pulseless. Patient was intubated in [facility] ER. He had chest compressions, Epi x1 and bicarb x1, asystole on tele followed by sinus tachycardia. ECG post-ROSC with anterior ST elevation prompting
STEMI alert. Patient was cath'd by covering guitar repair technician at [facility] and there was evidence of CAD and cardiogenic shock. IABP was placed and patient was sent to . Called his PCP to get records and await their arrival.
Progress Note - Patient'S Librarian
Subjective
Date of Service: September 22, 2023
He feels some rib pain with deep breath
Objective
Labs:
09/22/23 04:23
09/22/23 04:23
Labs
Hgb 10.2 g/dL (13.0-18.0) L 09/22/23 04:23
Hct 30.2 % (39.0-52.0) L 09/22/23 04:23
Plt Count 185 10^3/uL (130-400) D 09/22/23 04:23
PT 15.5 Sec (11.4-14.6) H 09/16/23 07:46
INR 1.25 09/16/23 07:46
APTT 76.9 Sec (23.4-35.0) H 09/17/23 00:19
Sodium 136 mmol/L (135-145) 09/22/23 04:23
Potassium 4.8 mmol/L (3.5-5.1) 09/22/23 04:23
BUN 42 mg/dl (9-20) H 09/22/23 04:23
Creatinine 1.3 mg/dL (0.7-1.3) 09/22/23 04:23
Glucose 149 mg/dl (70-99) H 09/22/23 04:23
Vital Signs and I&O:
Vital Signs
Temp Pulse Resp BP Pulse Ox
98.4 F 86 18 118/61 96
09/22/23 04:17 09/22/23 07:37 09/22/23 07:23 09/22/23 07:37 09/22/23 07:23
Vital Signs
Temp Pulse Resp BP Pulse Ox
98.4 F 86 18 118/61 96
09/22/23 04:17 09/22/23 07:37 09/22/23 07:23 09/22/23 07:37 09/22/23 07:23
Intake & Output
09/20/23 09/21/23 09/22/23 09/23/23
06:59 06:59 06:59 06:59
Intake Total 480 / 480 480 / 480 240 / 240
Output Total 3700 / 3700 3900 / 3900 2500 / 2500
Balance -3220 / -3220 -3420 / -3420 -2260 / -2260
Physical Exam
Physical Exam
GEN: AAOx3
HEENT: EOMI
LUNGS: No audible wheeze
CV: Reg
ABD: ND
EXT: No edema B/L
NEURO: Gross non-focal
SKIN: No rash
--- NOTE | 2023-09-22 10:50 | W.PN.PUL3 ---
Today's Communication / Plan
-
Continue antibiotics
Out of bed to chair, ambulate
Airway clearance measures
Chest x-ray in 4 to 6 weeks with pulmonary follow-up
Outpatient sleep apnea workup
Patient cleared to be discharged home today per pulmonary standpoint assuming repeat TTE (being done today) does not show any significant/concerning new findings.
We will arrange for outpatient follow-up with repeat chest XR in 4-6 weeks with outpatient PFT and discussion of sleep disordered breathing.
Pulmonary service will now sign off. Please reconsult if there are any additional questions/concerns, or if patient's respiratory status deteriorates.
Assessment
-
58-year-old male with history of diabetes, recent COVID August 2023 treated with Paxlovid therapy, primary symptom of cough at that time. Patient recovered without any symptoms. 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
while at [facility] requiring CPR/epi/bicarbonate with ROSC, found to have acute anterior NV per EKG at [facility]. Cardiac catheterization revealed multivessel disease, balloon pump placed, transferred to [facility] CVICU 09/16/23
Acute hypoxic respiratory failure
Intubated at [facility] 09/12/23
Extubated 09/17/23
In- hospital cardiac arrest ([facility])
Collapsed in triage
CPR, epi, bicarbonate with ROSC
Cardiogenic shock
IABP placed at [facility]
Anterior ST elevation NV
Multivessel disease per catheterization 09/16/2023
Hyperglycemia, DKA - resolved
Acute renal insufficiency - improving creatinine 1.3 today
Hypokalemia/hyperkalemia
Hypertriglyceridemia, 933 on 09/16/2023
L sided moderate sized atelectasis likely mucus plug/hypoventilation
Conditions present prior to admission
History of diabetes
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
Recent Covid illness August 2023
s/p Paxlovid
Occasional tobacco history
Plan
At this time, patient continues to be resting comfortably on room air and NAD
Chest exam has improved
Chest x-ray today with stable LLL pleuroparenchymal process
Reviewed importance of incentive spirometry, airway clearance
Denies hemoptysis
Moving forward
Continue with airway clearance measures
Chest percussion if able to tolerate
Lidocaine patch
Ultrasound without any evidence of fluid
Chest x-ray with continued improvement
Recommend follow-up chest x-ray in 4 to 6 weeks - we will arrange for this
Per discussion with team, catheterization with multivessel disease
Poor targets for a surgical approach. CT surgery has signed off
Medical treatment for now, cardiology following
Echocardiogram on 09/17/2023 shows improved EF from 35% (from tte on 09/16/2023) to 55%, normal PA pressures, aortic sclerosis, normal RV size and function; severe hypokinesis of the distal anteroseptal, distal inferior and apical barrios.
Seem to be diuresing well
Replete electrolytes as needed to keep K>4, Mg>2
Antibiotics switched to cefdinir and doxycycline, to continue through 09/24/2023
Trend sCr and UOP while he remains inpatient
Nephrology following
Head of bed elevated, aspiration precautions
GI prophylaxis: Remains on Protonix PO 40mg twice daily
DAPT with ASA and plavix
DVT prophylaxis: LMWH
Dr. Stacy had previously reviewed suspicion for sleep disordered breathing
Given medical management plans for coronary disease, would strongly recommend outpatient pulmonary follow-up/sleep apnea workup
Information left in chart
Reviewed with patient and at bedside
Disposition efforts
Patient is having a repeat TTE done today. If no significant changes compared to last TTE on 09/17/2023, then patient is cleared to be discharged home per pulmonary perspective. We will arrange for outpatient follow-up with repeat chest XR in 4-6
weeks with outpatient PFT and discussion of sleep disordered breathing. Pulmonary service will now sign off. Thank you for allowing us to be involved in the care of the patient. Please reconsult if there are any additional questions/concerns, or
if patient's respiratory status deteriorates.
Diagnostic Data
CXR 09-22-2023: Stable hazy opacity at left lung base, likely representing combination of atelectasis and pleural effusion. Similar to prior examination. No pneumothorax.
CXR 09/19/23- Subtotal opacification of the left chest, unchanged, including differential diagnostic possibilities.
CT CHEST 09/19/23- Large left lower lobe consolidation with air bronchograms extending to the left common with accompanying small left pleural effusion compatible with pneumonia. Follow-up imaging to confirm complete resolution recommended. Right
lower lobe subsegmental atelectasis. Coronary artery calcifications.
CHEST US 09/18/23- Small left pleural effusion measuring 1 x 8 x 2.5 cm, with an estimated volume of 10 mL. It appears that most of the opacity on radiographic examination corresponds to parenchymal consolidation.
ECHO 09/17/23- Normal left ventricular size and systolic function. Severe hypokinesis of the distal anteroseptal, distal inferior and apical barrios. LV ejection fraction is 55% by visual assessment. Normal right ventricular size and function. Normal
pericardium without effusion. Compared to previous echo 09/16/23, the LVEF has improved from 35% to 50-55%.
All relevant imaging reviewed.
Subjective Data
-
Date of Service:
Date of Service: September 22, 2023
Chief Complaint: Pulmonary Follow Up
Subjective:
Patient seen today. Doing well on room air sitting in chair, in no acute distress. Able to walk around the [place] without any chest pain or shortness of breath. Eager to go home but worried that he may have trouble once discharged, like breathing
or 'worsening pneumonia.' Using incentive spirometer. Heart rate currently 83.
Review of Systems
General: Other (Negative unless mentioned above)
Objective Data
Data Reviewed
Vital Signs / I&O / Oxygen:
Vital Signs
Temp Pulse Resp BP Pulse Ox
98 F 84 18 119/68 98
09/22/23 12:00 09/22/23 12:35 09/22/23 12:04 09/22/23 12:35 09/22/23 12:04
Intake and Output
09/21/23 09/22/23 09/23/23
06:59 06:59 06:59
Intake Total 480 / 480 240 / 240
Output Total 3900 / 3900 2500 / 2500
Balance -3420 / -3420 -2260 / -2260
SaO2 [A/C] 96
SaO2 98
Nasal Cannula flow liters per 2
minute
Physical Exam
General: Comfortable and Other (NAD)
HEENT: Normocephalic, Anicteric, Moist Mucous Membranes and Other (Thick neck)
Cardiovascular: S1-S2, Murmur (n) and Peripheral Edema (trace AUTUMN b/l)
Respiratory: Wheeze (n), Crackles (n), Rhonchi (n), Non-Labored Respirations and Other (Reduced breath sounds on left base)
GI: Soft, Non Distended (Obese), Non Tender and Normal Bowel Sounds
Neurology: Awake, Alert and No Motor Deficits (Able to sit up without assistance)
Skin: Warm, Dry, Jaundice (n) and Rash (n)
Labs/Micro/Reports
Lab Data
09/22/23 04:23
09/22/23 04:23
Microbiology
09/17/23 08:44 Blood/Venous Blood Culture - Final
No Growth - Final Report
09/17/23 08:34 Blood/Venous Blood Culture - Final
No Growth - Final Report
--- NOTE | 2023-09-22 11:00 | PN.DE.MGMTRT ---
Insulin Management
- -
09/22/2023 Diabetes Management F/U:
Patient transferred from [facility] s/p cardiac cath with cardiogenic shock, multivessel disease. PMH MA, type 2 diabetes. Patient is critically ill, intubated DKA insulin infusion and multiple other drips. He is sedated. Prior to admission was
taking Soliqua 60 units in AM, Farxiga 10 mg daily, repaglinide .5 BID. A1C is 9.2, cr 2.1, eGFR 36.26. No plans for CABG at this time, medical management and follow with cardiology.
Patient is awake alert and oriented, OOB in chair. Able to discuss current diabetes regimen.
His Lantus dose was increased to 63 units in AM on 09/20 due to suboptimal glucose levels.
He had been taking Prandin 0.5mg BID, dose was increased to 1mg TID for optimal glucose control during this hospital visit.
D/C meds: Farxiga 10 mg, Prandin 1 mg AC and Lantus 63 units in AM.
Instructed pt to f/u with his Endocrine at [facility], Dr. Torres for further adjustment of diabetes medications.
Diabetes History
- -
Type of Diabetes: 2 requiring insulin
Pre-Admission Diabetes Regimen
09/22/23
04:23
Creatinine 1.3
Lab Results
Hemoglobin A1c 9.2 % (4.0-5.6) H 09/16/23 07:46
Insulin Pump Settings
IP Diabetes Regimen
09/21/23 09/21/23 09/21/23
12:48 17:46 21:42
Glucose
POC Glucose 181 H 217 H 204 H
09/22/23 09/22/23
04:23 07:35
Glucose 149 H
POC Glucose 141 H
Patient Education
[2023-09-22 11:54] LABS: Glucose - Point of Care 171 mg/dl (70-99)
[2023-09-22] MEDS: NOVOLOG FLEXPEN-LOW RESISTANCE 1 UNITS SC (11:57)
[2023-09-22 12:03] VITALS: BP 119/68
[2023-09-22] MEDS: TOPROL XL 25 MG PO (12:35)
--- NOTE | 2023-09-22 14:01 | CARDSERVLU ---
Echocardiogram with Lumason completed after protocol screening completed. Allergies verified.
Patent IV site: __left hand___
IV site flushed with 0.9% NaCl pre and post administration.
Diluted bolus method utilized to enhance visualization of ventricular barrios.
Total volume given: ___3.0_ mL
Patient tolerated all procedures well without complications.
[2023-09-22 15:05] VITALS: BP 126/71
--- NOTE | 2023-09-22 15:41 | W.PN.UPDATE ---
Update Note
Progress Note Update
Preliminary echo report shows EF stable at 55% off of pressors and IABP. 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 Stable for discharge from a cardiac standpoint.
--- NOTE | 2023-09-22 15:57 | W.DCSUMMARY ---
Discharge Summary
Discharge Data
Date of Admission: 09/16/23
Date of Discharge: 09/22/23
-
Pending Results: No
Hospital Course
Patient was accepted as a transfer from [facility] is a 58-year-old male in the setting of a cardiac arrest and coronary artery disease by history after he had walked into the ER at [facility] complaining of shortness of breath he
subsequently collapsed in the ER was noted to be pulseless was intubated underwent chest compressions epinephrine and bicarb with ROSC SC and anterior ST elevation prompting a STEMI alert with subsequent catheterization after patient becoming fully
awake with evidence of coronary artery disease and cardiogenic shock and intra-aortic balloon pump was placed and he was transferred to [facility]. And echocardiogram performed on 15 September noted a 35 to 40% EF with inferior and inferior
septal and septal hypokinesis mild concentric left ventricular hypertrophy subsequent echo the following day showed a 55% EF with severe hypokinesis
Subsequently during hospitalization the patient had complications including diabetic ketoacidosis on arrival here the patient was hypotensive with a systolic blood pressure 97 while intubated/patient was subsequently extubated on 15 September
Patient admitted to medical service consultations with the diabetic nurse practitioner, clearing distribution clerk, cardiology, infectious disease and nephrology.
Found to have presentation of sepsis with metabolic acidosis possibly in relation to pneumonia on admission with chest x-ray showing atelectasis and or pneumonia in the retrocardiac left lung this is also where he has this chest pain and of course
he had a cardiac arrest with multiple triggers including rib fractures.
Patient was transition from his usual prior insulin pen to Lantus insulin. Hospitalization with cultures pending the patient was started on empiric Rocephin and doxycycline with gradual trending down of his presentation leukocytosis at time of
discharge will finish course of cefdinir and doxycycline as an outpatient.
Other complications included acute kidney injury on admission which progressed up to as high as a creatinine of 2.1 possibly relation to combination hypertension sepsis and contrast studies. This eventually resolved
Further management of his initial course of diabetic ketoacidosis including in addition to placement during hospitalization Lantus insulin he was increased on his Prandin to 1 mg 3 times daily continue Farxiga 10 mg
Because of his ongoing chest wall pain from his rib fractures and the large amount of ecchymosis in his left chest he was encouraged on vest therapy Mucomyst incentive spirometry and Acapella/outpatient sleep apnea workup also recommended by
pulmonary services recommended a 4 to 6-week follow-up for chest x-ray which has been arranged
Cardiology feels at this point is difficult to pinpoint the inciting events to his respiratory arrest may have been precipitated by a cardiac ischemic event leading to asystolic arrest. Although cardiac ischemia could have played a inciting event
followed by pulmonary edema and hypoxia leading to his DKA. There is been no documentation of a tachyarrhythmia nor VT or VF/recommendation at this time is medical therapy with a combination of an start of an JOSESITO inhibitor, beta-jose, SGLT2
inhibitor with continuation of dual antiplatelet therapy with aspirin and clopidogrel and statin all of which has been ordered and he will follow-up with Dr. Patino his supervisor public health nursing which is closer to him
Cardiology wanted to do 1 more 2D echocardiogram prior to proposed discharge as the patient is now ambulatory with the usage of walker we have made arrangements for [facility] for follow-up
.
Discharge Plan
-
Patient Disposition: Home with Home Care
Discharge Diagnosis/Procedures: Coronary artery disease
Cardiac arrest
Myocardial infarction
Acute hypoxemic respiratory failure
Pneumonia
Thrombocytopenia
Acute kidney injury
Diet: As tolerated and Diabetic, Carb Controlled
Activity: As tolerated
Driving Restrictions: As prior to admission
Other Services: VN, PT and OT
Referrals:
[facility] [Outside]
()
Regis Pugh MD [Active] -
(4-6 weeks with CXR, PFT
Eventual sleep apnea workup)
PRIVATE,PHYSICIAN [Family Provider] - in less than 1 week
Jay Jay Bautista MD [Active] - 10/24/23 2:40 pm (You have a follow up visit with Dr. Patino's partner, Dr. Bautista. The office will call you if there is any sooner availability. You can also call to see if there have been any cancellations/sooner
availability. )
Prescriptions:
New
atorvastatin 40 mg Tablet
40 mg PO QPM Qty: 30 0RF
polyethylene glycol 3350 [HealthyLax] 17 gram Powder In Packet
17 g PO DAILY Qty: 0 0RF
docusate sodium 100 mg Capsule
100 mg PO BID Qty: 0 0RF
aspirin [Children's Aspirin] 81 mg Tablet,Chewable
81 mg PO DAILY Qty: 30 0RF
repaglinide 1 mg Tablet
1 mg PO MEALS 30 Days Qty: 90 0RF
guaifenesin 600 mg Tablet Extended Release 12hr
1,200 mg PO Q12 Qty: 14 0RF
sennosides [Senna Laxative] 8.6 mg Tablet
8.6 mg PO HS Qty: 30 0RF
doxycycline hyclate 100 mg Capsule
100 mg PO Q12 Qty: 4 0RF
clopidogrel 75 mg Tablet
75 mg PO DAILY Qty: 30 0RF
cefdinir 300 mg Capsule
300 mg PO Q12 Qty: 4 0RF
oxycodone 5 mg Tablet
2.5 mg PO Q4HPRN PRN (Reason: mild-moderate pain) Qty: 20 0RF
metoprolol succinate 25 mg Tablet Extended Release 24 Hr
25 mg PO DAILY Qty: 30 11RF
lisinopril 5 mg tablet
5 mg PO DAILY Qty: 30 11RF
Continued
dapagliflozin propanediol [Farxiga] 10 mg Tablet
10 mg PO DAILY
Soliqua 100/33 100 unit-33 mcg/mL Insulin Pen
60 unit SC DAILY 30 Days Qty: 18 1RF
Rx Instructions:
60 units daily before breakfast
Discontinued
repaglinide 0.5 mg Tablet
0.5 mg PO BID
Rx Instructions:
1 tab taken before lunch and dinner
rosuvastatin
10 mg PO DAILY
No Action
[place] 3 Capsule
1,000 mg PO DAILY
cholecalciferol (vitamin D3) [Vitamin D3] 50 mcg (2,000 unit) Capsule
50 mcg PO DAILY
Discharge Orders:
Discharge Patient (As Directed); Ordered 09/22/23
Ordered By: Ken Escalante
Care Plan Goals
Care Plan Goals:
Problem: Readiness for enhanced knowledge related to diagnosis and treatment plan
Goal: Understand your diagnosis and treatment plan needs, including medications if applicable.
Instructions: Know your diagnosis, underlying causes and treatment plan options, including medications if applicable. Consult with your health care team to learn about your diagnosis and treatment plan, including medications if applicable.
Discharge Date and Time
Print Language: CYPRIOT
== END 2023-09-22 17:56 | disposition home health service (06) | DRG 270 ==
LOC: IVU 07:27
PROVIDERS: Clinical Nurse Specialist Acute Care; Internal Medicine; Physician Assistant; Physician Assistant Medical; Physician Assistant Surgical; Student in an Organized Health Care Education/Training Program; ADMITTING PHYSICIAN Thoracic Surgery (Cardiothoracic Vascular Surgery); ATTENDING PHYSICIAN Internal Medicine; CONSULT PHYSICIAN Internal Medicine Critical Care Medicine; CONSULT PHYSICIAN Internal Medicine Infectious Disease; CONSULT PHYSICIAN Nuclear Medicine Nuclear Cardiology; OTHER PHYSICIAN Internal Medicine; OTHER PHYSICIAN Specialist
PROC: 5A02210 Assistance with Cardiac Output using Balloon Pump, Continuous (ICD-10-PCS; 2023-09-16)
PROC: 5A1935Z Respiratory Ventilation, Less than 24 Consecutive Hours (ICD-10-PCS; 2023-09-16)
PROC: 03HY32Z Insertion of Monitoring Device into Upper Artery, Percutaneous Approach (ICD-10-PCS; 2023-09-17)
PROC: 02HV33Z Insertion of Infusion Device into Superior Vena Cava, Percutaneous Approach (ICD-10-PCS; 2023-09-17)
PROC: 5A09357 Assistance with Respiratory Ventilation, Less than 24 Consecutive Hours, Continuous Positive Airway Pressure (ICD-10-PCS; 2023-09-19)
DX: I21.09 ST elevation (STEMI) myocardial infarction involving other coronary artery of anterior wall (principal); A41.9 Sepsis, unspecified organism; E11.10 Type 2 diabetes mellitus with ketoacidosis without coma; J96.01 Acute respiratory failure with hypoxia; R57.0 Cardiogenic shock; K72.00 Acute and subacute hepatic failure without coma; J81.0 Acute pulmonary edema; J18.9 Pneumonia, unspecified organism; N17.9 Acute kidney failure, unspecified; Z99.11 Dependence on respirator [ventilator] status; E87.1 Hypo-osmolality and hyponatremia; J98.11 Atelectasis; M96.A3 Multiple fractures of ribs associated with chest compression and cardiopulmonary resuscitation; D69.6 Thrombocytopenia, unspecified; E66.01 Morbid (severe) obesity due to excess calories; I25.10 Atherosclerotic heart disease of native coronary artery without angina pectoris; E87.5 Hyperkalemia; E11.42 Type 2 diabetes mellitus with diabetic polyneuropathy; I10 Essential (primary) hypertension; E78.1 Pure hyperglyceridemia; Z11.52 Encounter for screening for COVID-19; Z68.35 Body mass index [BMI] 35.0-35.9, adult; Z79.4 Long term (current) use of insulin; Z79.899 Other long term (current) drug therapy; Z86.16 Personal history of COVID-19; Z86.74 Personal history of sudden cardiac arrest; Z87.891 Personal history of nicotine dependence
CPT/HCPCS: 93308; 71045; 71250; 76604; 80048; 80053; 80061; 81003; 81015; 82010; 82330; 82570; 82805; 82810; 82947; 82962; 83036; 83605; 83721; 83735; 83880; 83935; 84132; 84300; 84302; 84478; 84484; 85025; 85027; 85610; 85730; 86022; 86850; 86900; 86901; 87040; 87070; 87205; 87502; 87811; 93005; 93306; 93321; 93325; 94002; 94640; 94660; 94667; 94668; 97163; 97167; 97530; Q9950; Q9957

== ENCOUNTER → 2024-02-02 11:50 | Outpatient (REF) | payer BC, SELFPAY | LOC: HWRAD 11:50 | PROVIDERS: ATTENDING PHYSICIAN Internal Medicine Critical Care Medicine; FAMILY PHYSICIAN Family Medicine | DX: R93.89 Abnormal findings on diagnostic imaging of other specified body structures (principal); Z87.01 Personal history of pneumonia (recurrent); R06.02 Shortness of breath | CPT/HCPCS: 71046 ==